=== PATIENT | female | born 1950 | race Asian ===

== ENCOUNTER 2018-01-30 20:44 | Emergency (ER) | payer MEDICARE, OTHER, SELFPAY ==
[2017-10-28 12:18] VITALS: BMI 29.2
[2018-01-30 20:50] VITALS: BP 116/58; PULSE 65; RESP 16; TEMP 36.7; O2SAT 95; BMI 34.7
--- NOTE | 2018-01-30 21:03 | DI.RAD.S_ITS ---
PROCEDURE: XR CHEST 1V INDICATIONS: Shortness of breath TECHNIQUE: One view of the chest was acquired. COMPARISON: [facility], , XR CHEST 1V, 10/28/2017, 5:08. [facility], CR, CHEST 1 VIEW, 06/13/2017, 18:59. [facility], CR, CHEST 1 VIEW, 08/08/2014, 18:36. FINDINGS: Surgical changes and devices: Stable over time. Prior cardiac valve surgery and what appears to be. Lungs and pleura: No pleural effusions or pneumothorax. Lungs are stable over time, with an interstitial prominence but no definite CHF. Mediastinum: Mediastinal contours appear normal. Heart size is normal. Bones and chest wall: No suspicious bony lesions. Overlying soft tissues appear unremarkable. IMPRESSION: Prior cardiac surgeries, chronic interstitial prominence within the lung parenchyma but no acute CHF is found. Dictated by: Victoriano Carreno M.D. on 01/31/2018 at 8:44 Approved by: Victoriano Carreno M.D. on 01/31/2018 at 8:45
--- NOTE | 2018-01-30 21:04 | ED_ITS ---
HPI - Chest Pain General Chief Complaint: Chest Pain Stated Complaint: RT ARM PAIN, NAUSEA, DIZZINESS Time Seen by Provider: 01/30/18 21:01 Source: patient Mode of arrival: ambulatory Limitations: no limitations History of Present Illness HPI narrative: 67-year-old female with a history of mitral valve replacement and history of atrial fibrillation on Coumadin also with a history of a heart attack by her report. Patient states that she was told she had a heart attack after she had an episode of atrial fibrillation with RVR. Patient states she just recently saw her legal secretary and her thoracic surgeon. She states that for the past 24-48 hours she has had occasional right arm ?burning?. She states she has had separate episodes where she feels a ?funny sensation? in her chest. She also states that she has separate episodes of what she describes as ?palpitations? and she also describes separate episodes especially this morning of a room spinning sensation. She does not feel that any of these are occurring at the same time. No shortness of breath. States that her symptoms are not worsening with palpation or movement or change in position. She states she is taking her medications. Related Data Home Medications Medication Instructions Recorded Confirmed amiodarone 200 mg PO QDAY #0 11/26/16 10/28/17 aspirin 81 mg PO QDAY #0 11/26/16 10/28/17 atorvastatin 40 mg PO HS #0 11/26/16 10/28/17 bupropion HCl [Wellbutrin XL] 150 mg PO QDAY #0 11/26/16 10/28/17 buspirone 15 mg PO BID #0 11/26/16 10/28/17 metoprolol succinate [Toprol XL] 12.5 mg PO BID #0 11/26/16 10/28/17 pantoprazole [Protonix] 40 mg PO BID #0 11/26/16 10/28/17 tramadol 50 mg PO QDAY PRN #0 11/26/16 10/28/17 warfarin [Coumadin] 2.5 mg PO QDAY #0 11/26/16 10/28/17 acetaminophen [Acetaminophen Extra 1,000 mg PO Q6H PRN 10/28/17 10/28/17 Strength] alprazolam 0.5 mg PO BID PRN 10/28/17 10/28/17 biotin 10,000 mcg PO DAILY 10/28/17 10/28/17 cyanocobalamin (vitamin B-12) 1,000 mcg PO DAILY 10/28/17 10/28/17 [Vitamin B-12] fluticasone 1 spray INTRANASAL BID 10/28/17 10/28/17 folic acid 400 mcg PO DAILY 10/28/17 10/28/17 furosemide [Lasix] 40 mg PO BID 10/28/17 10/28/17 losartan 12.5 mg PO DAILY 10/28/17 10/28/17 Previous Rx's Medication Instructions Recorded albuterol sulfate [Ventolin HFA] 2 puff INH RTQ4HR PRN #1 g 10/31/17 prednisone 10 mg PO DAILY #20 tab-cap 10/31/17 Allergies Allergy/AdvReac Type Severity Reaction Status Date / Time shellfish derived Allergy Mild HIVES Verified 10/28/17 06:55 [SHELLFISH DERIVED] azithromycin [AZITHROMYCIN] Allergy Unknown SWOLLEN Verified 10/28/17 06:54 LIPS diltiazem [From CARDIZEM] Allergy Unknown HEART BLOCK Verified 10/28/17 06:55 trazodone [TRAZODONE] Allergy Unknown STOP Verified 10/28/17 06:54 BREATHING doxycycline [DOXYCYCLINE] AdvReac Mild STOMACH Verified 10/28/17 09:05 UPSET Review of Systems Constitutional Denies fatigue, Denies fever(s) and Denies frequent falls ENT Ears, Nose, Mouth, and Throat: Reports vertigo, Reports dizziness, Denies throat swelling and Denies tongue swelling Cardiovascular Denies chest pain, Denies chest pain with activity, Denies diaphoresis, Denies syncope, Denies pedal edema, Denies leg edema, Reports palpitations and Denies dyspnea Respiratory Denies cough and Denies dyspnea Gastrointestinal Gastrointestinal: Denies diarrhea, Denies nausea and Denies vomiting Genitourinary Denies dysuria Musculoskeletal Denies myalgias, Denies arthralgias and Denies tingling Comments: Right arm burning sensation Integumentary/Breasts Denies rash and Denies skin pain Neurologic Reports burning sensations (Right arm), Denies confusion, Reports vertigo, Reports dizziness, Denies syncope, Denies frequent falls and Denies tingling Psychiatric Denies confusion Endocrine Denies fatigue and Reports palpitations Hematologic/Lymphatic Reports easy bleeding (On Coumadin) and Denies easy bruising Allergic/Immunologic Denies urticaria, Denies throat swelling and Denies tongue swelling [facility] Medical History SUPERFICIAL LACERATION OF TONGUE (Chronic) Hemolytic anemia (Chronic) Chronic renal failure (Chronic) Depression (Acute) Hyperlipemia (Acute) Migraine (Acute) Afib (Chronic) Anemia aplastic aregenerative (Chronic) CAD (coronary atherosclerotic disease) (Chronic) Endocarditis (Resolved) Surgical History 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 Rheumatic heart disease. 2. CAD. 3. Hypertension. 4. Depression. 5. Panic disorder. 6. Hiatal hernia. 7. Migraines. 8. Carotid stenosis. 9. Osteopenia. 10. Osteoarthritis. 11. Hyperlipidemia. 12. PAF. 13. Hemolytic anemia 14. Chronic kidney disease. Past Surgical History 1. Aortic and mitral valve replacement. 2. CABG x1. 3. Tubal ligation. 4. Hemorrhagic 2. 5. Transfemoral cath with mitral valve implantation. October 2016. 6. Transvenous pacemaker placement. October 2016. 7. Right femoral vein closure October 2016. Exam Initial Vital Signs Initial Vital Signs: Vital Signs Temperature 98.0 F 01/30/18 20:50 Pulse Rate 65 01/30/18 20:50 Respiratory Rate 16 01/30/18 20:50 Blood Pressure 116/58 L 01/30/18 20:50 Pulse Oximetry 95 01/30/18 20:50 Const General: cooperative, healthy appearing, comfortable, well developed, well groomed and No acute distress Orientation: alert and oriented x3 HENMT Head: normal to inspection and normocephalic Chest Chest: normal inspection of the chest Resp Effort & Inspection: normal respiratory effort Auscultation: clear to auscultation bilaterally Cardio Rate: regular rate Rhythm: regular rhythm Heart Sounds: murmur systolic II/ Pulses: radial pulses present GI Inspection: non-distended Palpation: soft, No firm and No tender Skin Lesions: no lesions Rashes: no rashes Neuro General: alert, awake and oriented x3 Speech: speech normal Gait: normal gait Extrem General: normal to inspection, full ROM and capillary refill normal Psych Appearance: grossly normal, well kempt and not disheveled Course Orders Ordered: ED Orders 01/30/18 21:03 XR chest 1V Stat EKG-12 Lead Stat 01/30/18 21:10 B Type Natriuretic Peptide Stat Complete Blood Count AUTO DIFF Stat Comprehensive Metabolic Panel Stat Partial Thromboplastin Time Stat Prothrombin Time INR Stat Troponin I Stat 01/30/18 22:11 EKG-12 Lead Stat 01/30/18 23:57 Troponin I Stat Discontinued Medications Aspirin (Aspirin Chew) 324 mg PO NOW ONE Stop: 01/30/18 21:03 Last Admin: 01/30/18 21:13 Dose: 324 mg Vital Signs - 8 hr 01/30/18 20:50 01/30/18 21:18 01/30/18 21:35 Temperature 98.0 F Pulse Rate 65 63 59 L Respiratory Rate 16 15 15 Blood Pressure 116/58 L Blood Pressure [Right Arm] 121/65 H 120/58 L Pulse Oximetry 95 92 90 L 01/30/18 22:06 01/30/18 22:41 01/30/18 23:08 Temperature Pulse Rate 58 L 61 60 Respiratory Rate 17 15 13 Blood Pressure Blood Pressure [Right Arm] 117/69 135/81 H 123/74 H Pulse Oximetry 92 91 93 01/31/18 01:01 01/31/18 01:14 Temperature Pulse Rate 61 59 L Respiratory Rate 18 16 Blood Pressure 126/99 H Blood Pressure [Right Arm] 126/69 H Pulse Oximetry 92 100 MDM - Chest Pain Medical Records Data Attestation: I reviewed the patient's medical records. Lab Data Attestation: I reviewed the patient's lab results. Result diagrams: 01/30/18 21:10 01/30/18 21:10 Lab Results 01/30/18 01/30/18 01/30/18 Range/Units 21:10 21:10 21:10 WBC 5.0 (4.5-11.0) X10^3/uL RBC 4.49 (4.0-5.2) X10^6/uL Hgb 12.6 (12.0-16.0) g/dL Hct 38.8 (36-46) % MCV 86.5 (80-100) fL MCH 28.1 (26-34) PG MCHC 32.5 (30-36) % RDW 14.4 (11.6-14.8) % Plt Count 230 (150-400) X10^3/uL Neut % (Auto) 48.7 L (50-75) % Lymph % (Auto) 34.1 (25-40) % [place] % (Auto) 12.4 (3-14) % Eos % (Auto) 3.9 (2-4) % Baso % (Auto) 0.9 (0-2) % Neut # (Auto) 2400 L (3737-2198) /uL PT 23.9 H (10.1-12.7) SECONDS INR 2.2 H (0.9-1.3) APTT 43 H D (26.4-36.2) SECONDS Sodium 144 (137-145) mmol/L Potassium 3.3 L (3.4-5.1) mmol/L Chloride 99 (98-107) mmol/L Carbon Dioxide 31 (22-32) mmol/L BUN 31 H (7-17) mg/dL Creatinine 2.60 H (0.52-1.04) mg/dL Estimated GFR 18.4 L (>60) mL/min BUN/Creatinine Ratio 11.9 (6-22) Glucose 137 H (80-110) mg/dL Calcium 9.2 (8.4-10.2) mg/dL Total Bilirubin 0.4 (0.2-1.3) mg/dL AST 35 (14-36) IU/L ALT 32 (9-52) IU/L Alkaline Phosphatase 99 (38-126) U/L Troponin I (0.01-0.034) ng/mL B-Natriuretic Peptide 456.0 H (<100) Total Protein 8.1 (6.3-8.2) g/dL Albumin 4.7 (3.5-5.0) g/dL Globulin 3.4 (1.7-4.1) g/dL Albumin/Globulin Ratio 1.4 (1.0-2.8) 01/30/18 01/31/18 Range/Units 21:10 00:05 WBC (4.5-11.0) X10^3/uL RBC (4.0-5.2) X10^6/uL Hgb (12.0-16.0) g/dL Hct (36-46) % MCV (80-100) fL MCH (26-34) PG MCHC (30-36) % RDW (11.6-14.8) % Plt Count (150-400) X10^3/uL Neut % (Auto) (50-75) % Lymph % (Auto) (25-40) % [place] % (Auto) (3-14) % Eos % (Auto) (2-4) % Baso % (Auto) (0-2) % Neut # (Auto) (5728-6311) /uL PT (10.1-12.7) SECONDS INR (0.9-1.3) APTT (26.4-36.2) SECONDS Sodium (137-145) mmol/L Potassium (3.4-5.1) mmol/L Chloride (98-107) mmol/L Carbon Dioxide (22-32) mmol/L BUN (7-17) mg/dL Creatinine (0.52-1.04) mg/dL Estimated GFR (>60) mL/min BUN/Creatinine Ratio (6-22) Glucose (80-110) mg/dL Calcium (8.4-10.2) mg/dL Total Bilirubin (0.2-1.3) mg/dL AST (14-36) IU/L ALT (9-52) IU/L Alkaline Phosphatase (38-126) U/L Troponin I < 0.012 < 0.012 (0.01-0.034) ng/mL B-Natriuretic Peptide (<100) Total Protein (6.3-8.2) g/dL Albumin (3.5-5.0) g/dL Globulin (1.7-4.1) g/dL Albumin/Globulin Ratio (1.0-2.8) Imaging Data Chest x-ray: Attestation: I personally reviewed and interpreted this imaging study as follows: My impression: No pneumonia Postsurgical changes to include sternal wires and cages from her valve replacement No focal consolidation ECG Data Attestation: I personally reviewed and interpreted this ECG as follows: Prior ECG tracings: not available for review Interpretation: EKG dated 30 January 2018 time 2102 hr Sinus rhythm Ventricular rate is 63 As needed oval 174 Normal QRS Normal QTC Inverted T-waves in lead 1 and aVL Inverted T-waves in V1 V2 V3 EKG dated 30 January 2018 time 2211 hr Sinus bradycardia Ventricular rate of 56 Normal as needed oval Normal QRS Normal QTC Unchanged from prior EKG MDM Narrative Medical decision making narrative: Patient was given an aspirin here in the emergency department. Serial EKG is unchanged. Patient with negative troponin x2 here in the emergency department. Patient with very atypical symptoms. She clearly describes an episode of vertigo that she had earlier today that did not seem to be associated with any of her other symptoms. She also describes palpitations which she states that are not new for her. She is on Coumadin and is therapeutic with her INR. She states that her prior heart attack was after an episode of atrial fibrillation with RVR. She is not in atrial fibrillation today. I feel that given her history, the unchanged EKG is, the 2-troponins and her very atypical symptoms that ACS is unlikely. She was given return precautions regarding this however. She was instructed she needs to contact her primary care doctor tomorrow and also her legal secretary. I had long discussion regarding her symptoms and her risk for ACS. She did expressed understanding and agreement with being discharged home. Discharge Plan Departure Patient Disposition: Home, Self-Care Clinical Impression: Atypical chest pain, Vertigo Discharge Date/Time: 01/31/18 01:17 Interventions: ED Discharge Assessment Last Done: 01/31/18 01:14 Instructions: DI for Vertigo, DI for Atypical Chest Pain Activity Restrictions/Additional Instructions: Recommend you continue all of your medications like we discussed. Contact your primary care doctor and your legal secretary tomorrow for a follow-up. Return to the emergency department for any new or worsening symptoms Prescriptions: No Action pantoprazole [Protonix] 40 MG tablet,delayed release (DR/EC) 40 mg PO BID Qty: 0 RF: 0 metoprolol succinate [Toprol XL] 25 MG tablet extended release 24 hr 12.5 mg PO BID Qty: 0 RF: 0 amiodarone 200 MG tablet 200 mg PO QDAY Qty: 0 RF: 0 tramadol 50 MG tablet 50 mg PO QDAY PRN (Reason: Pain (Scale Score 7-10)) Qty: 0 RF: 0 atorvastatin 40 MG tablet 40 mg PO HS Qty: 0 RF: 0 aspirin 81 MG tablet,delayed release (DR/EC) 81 mg PO QDAY Qty: 0 RF: 0 bupropion HCl [Wellbutrin XL] 150 MG tablet extended release 24 hr 150 mg PO QDAY Qty: 0 RF: 0 warfarin [Coumadin] 5 MG tablet 2.5 mg PO QDAY Qty: 0 RF: 0 buspirone 15 MG tablet 15 mg PO BID Qty: 0 RF: 0 cyanocobalamin (vitamin B-12) [Vitamin B-12] 1,000 mcg Tablet 1,000 mcg PO DAILY RF: 0 folic acid 400 mcg Tablet 400 mcg PO DAILY RF: 0 acetaminophen [Acetaminophen Extra Strength] 500 mg Tablet 1,000 mg PO Q6H PRN (Reason: Pain (Scale Score 1-3)) RF: 0 alprazolam 0.5 mg Tablet 0.5 mg PO BID PRN (Reason: Anxiety) RF: 0 losartan 25 mg Tablet 12.5 mg PO DAILY RF: 0 furosemide [Lasix] 20 mg Tablet 40 mg PO BID RF: 0 fluticasone 50 mcg/actuation [place],Suspension 1 spray INTRANASAL BID RF: 0 biotin 10,000 mcg Tablet,Disintegrating 10,000 mcg PO DAILY RF: 0 albuterol sulfate [Ventolin HFA] 90 mcg/actuation Hfa Aerosol Inhaler 2 puff INH RTQ4HR PRN (Reason: Shortness Of Breath) Qty: 1 RF: 0 prednisone 10 mg tablet 10 mg PO DAILY Qty: 20 RF: 0
[2018-01-30] MEDS: ASPIRIN 81 MG TAB 324 MG PO (21:13)
[2018-01-30 21:17] LABS: Add Manual Diff / Slide Review NO; Basophils Percent Auto 0.9 % (0-2); Eosinophils Percent Auto 3.9 % (2-4); Hematocrit 38.8 % (36-46); Hemoglobin 12.6 g/dL (12.0-16.0); Lymphocytes Percent Auto 34.1 % (25-40); Mean Corpuscular HGB Conc 32.5 % (30-36); Mean Corpuscular Hemoglobin 28.1 PG (26-34); Mean Corpuscular Volume 86.5 fL (80-100); Monocytes Percent Auto 12.4 % (3-14); Neutrophils Absolute Auto 2400 /uL (3000-5900); Neutrophils Percent Auto 48.7 % (50-75); Platelet Count 230 X10^3/uL (150-400); Red Blood Cell Count 4.49 X10^6/uL (4.0-5.2); Red Cell Distribution Width 14.4 % (11.6-14.8)
[2018-01-30 21:18] VITALS: BP 121/65; PULSE 63; RESP 15; O2SAT 92
[2018-01-30 21:27] LABS: INR 2.2 (0.9-1.3); Prothrombin Time 23.9 SECONDS (10.1-12.7)
[2018-01-30 21:29] LABS: PTT Partial Thromboplastin Tim 43 SECONDS (26.4-36.2)
[2018-01-30 21:30] LABS: Alanine Aminotransferase 32 IU/L (9-52); Albumin 4.7 g/dL (3.5-5.0); Albumin Globulin Ratio 1.4 (1.0-2.8); Alkaline Phosphatase 99 U/L (38-126); Aspartate Aminotransferase 35 IU/L (14-36); BUN Creatinine Ratio 11.9 (6-22); Bilirubin Total 0.4 mg/dL (0.2-1.3); Blood Urea Nitrogen 31 mg/dL (7-17); Calcium 9.2 mg/dL (8.4-10.2); Carbon Dioxide 31 mmol/L (22-32); Chloride 99 mmol/L (98-107); Estimated Glomerular Filt Rate 18.4 mL/min (>60); Globulin 3.4 g/dL (1.7-4.1); Glucose 137 mg/dL (80-110); HEMOLYSIS < 15 (0-50); Potassium 3.3 mmol/L (3.4-5.1); Sodium 144 mmol/L (137-145); Total Protein 8.1 g/dL (6.3-8.2)
[2018-01-30 21:35] VITALS: BP 120/58; PULSE 59; RESP 15; O2SAT 90
[2018-01-30 22:06] VITALS: BP 117/69; PULSE 58; RESP 17; O2SAT 92
[2018-01-30 22:11] LABS: Troponin I < 0.012 ng/mL (0.01-0.034)
[2018-01-30 22:41] VITALS: BP 135/81; PULSE 61; RESP 15; O2SAT 91
[2018-01-30 23:08] VITALS: BP 123/74; PULSE 60; RESP 13; O2SAT 93
[2018-01-31 00:38] LABS: Troponin I < 0.012 ng/mL (0.01-0.034)
[2018-01-31 01:01] VITALS: BP 126/69; PULSE 61; RESP 18; O2SAT 92
[2018-01-31 01:14] VITALS: BP 126/99; PULSE 59; RESP 16; O2SAT 100
== END 2018-01-31 01:17 | disposition home or self-care (01) ==
PROVIDERS: Emergency Provider Emergency Medicine; Family Provider Family Medicine; PCP Family Medicine
DX: R07.89 Other chest pain (principal); R42 Dizziness and giddiness
CPT/HCPCS: 36415; 36591; 71045; 80053; 83880; 84484; 85025; 85610; 85730; 93005; 93010; 99283; 99285

== ENCOUNTER 2018-07-24 15:12 | Emergency (ER) | payer MEDICARE, OTHER, SELFPAY ==
[2017-10-28 12:18] VITALS: BMI 29.2
--- NOTE | 2018-07-24 | DI.US.S_ITS ---
PROCEDURE: US PERIPH VENOUS LOW EXTREM RT INDICATIONS: RIGHT LEG EDEMA, PAIN TECHNIQUE: Real-time imaging, as well as color and pulse Doppler interrogation, were performed of the lower extremity deep veins from the inguinal ligament to the popliteal fossa. COMPARISON: None. FINDINGS: The deep veins are normally compressible, and free of intraluminal thrombus. Color and pulse Doppler demonstrate normal phasic intraluminal flow. There is normal augmentation response to distal compression maneuver. IMPRESSION: 1. No evidence of deep venous thrombosis in the right lower extremity. Dictated by: Agustin Lemon M.D. on 07/24/2018 at 21:02 Approved by: Agustin Lemon M.D. on 07/24/2018 at 21:02
[2018-07-24 15:19] VITALS: BP 105/71; PULSE 75; RESP 16; TEMP 37.8; O2SAT 95; BMI 35.3
[2018-07-24 19:20] VITALS: BP 140/80; PULSE 73; RESP 16; TEMP 36.8; O2SAT 95
--- NOTE | 2018-07-24 19:35 | DI.RAD.S_ITS ---
PROCEDURE: XR FOOT RT 2V INDICATIONS: Right foot pain and swelling TECHNIQUE: 3 views of the foot were acquired. COMPARISON: None. FINDINGS: Bones: No fractures or dislocations. Mild periosteal thickening demonstrated along the 4th metatarsal shaft. There is a moderate hallux valgus. Mild degeneration demonstrated at the 1st metatarsophalangeal joint. No suspicious bony lesions. Soft tissues: Mild soft tissue swelling noted medial to the 1st metatarsal head. A No tibiotalar joint effusion. Achilles tendon appears intact. IMPRESSION: 1. No fracture or dislocation. 2. Mild periosteal thickening demonstrated laterally along the 4th metatarsal shaft may represent a stress reaction. No stress fracture identified. Recommend correlation with clinical history. 3. Moderate hallux valgus. Dictated by: Agustin Lemon M.D. on 07/24/2018 at 19:56 Approved by: Agustin Lemon M.D. on 07/24/2018 at 19:58
[2018-07-24 20:00] VITALS: BP 121/65; PULSE 66; RESP 16; O2SAT 96
--- NOTE | 2018-07-24 20:02 | PC.NURSE ---
patients son called for an update. patient okay with son to be updated.
--- NOTE | 2018-07-24 20:33 | ED.TRAUMA ---
HPI - Trauma <Sybil Orozco DIRECTOR OF VITAL STATISTICS-BC - Last Filed: 07/24/18 22:23> General Chief Complaint: Extremity Injury, Upper Stated Complaint: RIGHT FOOT AND LEG PAIN Time Seen by Provider: 07/24/18 19:27 Source: patient Mode of arrival: ambulatory History of Present Illness HPI narrative: The patient is a 68-year-old female active smoker with a history of hypertension and coronary artery disease who presents with a chief complaint of left foot pain and swelling. This started yesterday. She does not know of any trauma to the area. She has taken Tylenol medical marijuana for the pain. She complains of persistent pain. She is worried about a blood clot as the swelling is unilateral. Patient denies any fevers nausea vomiting diarrhea abdominal pain. She denies any chest pain shortness of breath. She denies any dizziness or lightheadedness. Related Data Home Medications Medication Instructions Recorded Confirmed amiodarone 200 mg PO QDAY #0 11/26/16 10/28/17 aspirin 81 mg PO QDAY #0 11/26/16 10/28/17 atorvastatin 40 mg PO HS #0 11/26/16 10/28/17 bupropion HCl [Wellbutrin XL] 150 mg PO DAILY #0 11/26/16 07/24/18 buspirone 15 mg PO BID #0 11/26/16 07/24/18 pantoprazole [Protonix] 40 mg PO BID #0 11/26/16 07/24/18 warfarin [Coumadin] 2.5 mg PO QDAY #0 11/26/16 07/24/18 acetaminophen [Acetaminophen Extra 1,000 mg PO Q6H PRN 10/28/17 10/28/17 Strength] alprazolam 0.5 mg PO BID PRN 10/28/17 10/28/17 biotin 10,000 mcg PO DAILY 10/28/17 10/28/17 cyanocobalamin (vitamin B-12) 1,000 mcg PO DAILY 10/28/17 10/28/17 [Vitamin B-12] fluticasone 1 spray INTRANASAL BID 10/28/17 10/28/17 folic acid 400 mcg PO DAILY 10/28/17 10/28/17 furosemide [Lasix] 60 mg PO BID 10/28/17 10/28/17 losartan 12.5 mg PO DAILY 10/28/17 07/24/18 fluoxetine 40 mg PO DAILY 07/24/18 07/24/18 metoprolol succinate 25 mg PO BID 07/24/18 07/24/18 mirtazapine 07/24/18 Previous Rx's Medication Instructions Recorded albuterol sulfate [Ventolin HFA] 2 puff INH RTQ4HR PRN #1 g 10/31/17 oxycodone 5 mg PO Q4-6H PRN #7 tab 07/24/18 Allergies Allergy/AdvReac Type Severity Reaction Status Date / Time shellfish derived Allergy Mild HIVES Verified 07/24/18 15:19 [SHELLFISH DERIVED] azithromycin [AZITHROMYCIN] Allergy Unknown SWOLLEN Verified 07/24/18 15:19 LIPS diltiazem [From CARDIZEM] Allergy Unknown HEART BLOCK Verified 07/24/18 15:19 trazodone [TRAZODONE] Allergy Unknown STOP Verified 07/24/18 15:19 BREATHING doxycycline [DOXYCYCLINE] AdvReac Mild STOMACH Verified 07/24/18 15:19 UPSET Review of Systems <MERA Perea - Last Filed: 07/24/18 22:23> Review of Systems GENERAL: Denies chills, fatigue, malaise, fever, sweats. HEENT: Denies sinus pain, ear pain, sore throat, difficulty swallowing, dizziness. RESPIRATORY: Denies dyspnea, cough, wheezing, hemoptysis, sputum. CARDIOVASCULAR: Denies chest pain, palpitations, orthopnea, edema, GASTROINTESTINAL: Denies nausea, vomiting, abdominal pain, diarrhea, constipation, melena. : Denies dysuria, frequency, incontinence, hematuria, urinary retention. MUSCULOSKELETAL: See HPI SKIN: Denies rash, skin lesions, or other NEUROLOGIC: Denies weakness, headache, numbness, change in speech, confusion, seizures, incoordination. PSYCHIATRIC: No concerning psychosocial issues. 12 point review of systems is negative except for those stated above Exam <MERA Perea - Last Filed: 07/24/18 22:23> Narrative Exam Narrative: GENERAL: This is a well-nourished, well-developed patient, in mild distress. HEAD: Atraumatic. Normocephalic. No temporal or scalp tenderness. EYES: Pupils equal round and reactive. Extraocular motions intact. No scleral icterus. No injection or drainage. ENT: Nose without bleeding, purulent drainage or septal hematoma. Throat without erythema, tonsillar hypertrophy or exudate. Uvula midline. Airway patent. NECK: Trachea midline. No JVD or lymphadenopathy. Supple, nontender, no meningeal signs. CARDIOVASCULAR: Regular rate and rhythm RESPIRATORY: No increased respiratory effort. No cough. EXTREMITIES: Generalized pain to palpation left foot. Pain to palpation over 4th and 5th metatarsals. Swelling noted over navicular bone. Positive pedal pulses. Capillary refill less than 2 sec all toes left foot. No swelling noted right foot. BACK: Nontender without deformity or crepitance. No flank tenderness. NEURO: AOx3. SKIN: No erythema ecchymosis laceration abrasion or abnormality noted skin of left foot. Initial Vital Signs Initial Vital Signs: Vital Signs Temperature 100.0 F H 07/24/18 15:19 Pulse Rate 75 07/24/18 15:19 Respiratory Rate 16 07/24/18 15:19 Blood Pressure 105/71 07/24/18 15:19 Pulse Oximetry 95 07/24/18 15:19 <J Carlos Enriquez DO - Last Filed: 07/25/18 04:00> Initial Vital Signs Initial Vital Signs: Vital Signs Temperature 100.0 F H 07/24/18 15:19 Pulse Rate 75 07/24/18 15:19 Respiratory Rate 16 07/24/18 15:19 Blood Pressure 105/71 07/24/18 15:19 Pulse Oximetry 95 07/24/18 15:19 Course <MERA Perea - Last Filed: 07/24/18 22:23> Orders Ordered: ED Orders 07/24/18 19:35 XR foot RT min 3V Stat Discontinued Medications Acetaminophen (Tylenol) 975 mg PO NOW ONE Stop: 07/24/18 20:33 Last Admin: 07/24/18 20:42 Dose: 975 mg Oxycodone HCl (Percolone) 5 mg PO NOW ONE Stop: 07/24/18 21:27 Last Admin: 07/24/18 22:15 Dose: 5 mg Vital Signs - 8 hr 07/24/18 21:00 07/24/18 22:27 Pulse Rate 68 70 Respiratory Rate 16 Blood Pressure [Left Arm] 102/60 109/62 Pulse Oximetry 95 93 <J Carlos Enriquez DO - Last Filed: 07/25/18 04:00> Orders Ordered: ED Orders 07/24/18 19:35 XR foot RT min 3V Stat Discontinued Medications Acetaminophen (Tylenol) 975 mg PO NOW ONE Stop: 07/24/18 20:33 Last Admin: 07/24/18 20:42 Dose: 975 mg Oxycodone HCl (Percolone) 5 mg PO NOW ONE Stop: 07/24/18 21:27 Last Admin: 07/24/18 22:15 Dose: 5 mg Vital Signs - 8 hr 07/24/18 21:00 07/24/18 22:27 Pulse Rate 68 70 Respiratory Rate 16 Blood Pressure [Left Arm] 102/60 109/62 Pulse Oximetry 95 93 MDM - Trauma <MERA Perea - Last Filed: 07/24/18 22:23> Imaging Data foot xray: Radiologist's impression: [place] [address] XRay Report Signed Patient: Joselyn Prado TMR#: [id number] : [id number] Age/Sex: 68 / FDate of Service: 07/24/18 Loc: ED Accession Number: [id number] Procedure: XR foot RT min 3V Ordering Provider: Sybil Orozco PROCEDURE: XR FOOT RT 2V INDICATIONS: Right foot pain and swelling TECHNIQUE: 3 views of the foot were acquired. COMPARISON: None. FINDINGS: Bones: No fractures or dislocations. Mild periosteal thickening demonstrated along the 4th metatarsal shaft. There is a moderate hallux valgus. Mild degeneration demonstrated at the 1st metatarsophalangeal joint. No suspicious bony lesions. Soft tissues: Mild soft tissue swelling noted medial to the 1st metatarsal head. A No tibiotalar joint effusion. Achilles tendon appears intact. IMPRESSION: 1. No fracture or dislocation. 2. Mild periosteal thickening demonstrated laterally along the 4th metatarsal shaft may represent a stress reaction. No stress fracture identified. Recommend correlation with clinical history. 3. Moderate hallux valgus. Dictated by: Agustin Lemon M.D. on 07/24/2018 at 19:56 Approved by: Agustin Lemon M.D. on 07/24/2018 at 19:58 Venous US: Radiologist's impression: [address] [address] Ultrasound Report Signed Patient: Joselyn Prado TMR#: [id number] : [id number]:[id number] Age/Sex: 68 / FDate of Service: 07/24/18 Loc: ED Accession Number: [id number] Procedure: US periph venous low extrem rt Ordering Provider: Sybil Orozco PROCEDURE: US PERIPH VENOUS LOW EXTREM RT INDICATIONS: RIGHT LEG EDEMA, PAIN TECHNIQUE: Real-time imaging, as well as color and pulse Doppler interrogation, were performed of the lower extremity deep veins from the inguinal ligament to the popliteal fossa. COMPARISON: None. FINDINGS: The deep veins are normally compressible, and free of intraluminal thrombus. Color and pulse Doppler demonstrate normal phasic intraluminal flow. There is normal augmentation response to distal compression maneuver. IMPRESSION: 1. No evidence of deep venous thrombosis in the right lower extremity. Dictated by: Agustin Lemon M.D. on 07/24/2018 at 21:02 Approved by: Agustin Lemon M.D. on 07/24/2018 at 21:02 [facility] Narrative Medical decision making narrative: Patient is a 68-year-old female presents with left foot pain and swelling. Given the unilateral swelling, an ultrasound was obtained to rule out DVT. X-ray shows no fracture, but a stress reaction noted along the 4th metatarsal. Thus I was willing or small pain medication prescription, but encouraged [id number] pain meds as needed and able as well as rest ice compression elevation. I encouraged her to follow up with her primary care provider. Encouraged her to come back to the emergency department for any chest pain, shortness of breath or acute concerns. Patient no questions or concerns upon discharge. Discharge Plan Departure Patient Disposition: Home Clinical Impression: Acute foot pain Discharge Date/Time: 07/24/18 22:29 Interventions: ED Discharge Assessment Last Done: 07/24/18 22:28 Instructions: How To Perform RICE (Rest, Ice, Compress, Elevate), DI for Foot Pain Activity Restrictions/Additional Instructions: Your x-ray shows no fracture, but possible stress reaction in your foot. Your ultrasound shows no blood clot. I am giving a small prescription of pain medication. Please use rest ice compression elevation. Please take [id number] pain medications as needed and able. Please follow-up with her primary care provider. Please come back to the emergency department for acute concerns including concern for stroke heart attack or blood clot. Prescriptions: New oxycodone 5 mg tablet 5 mg PO Q4-6H PRN (Reason: pain) Qty: 7 RF: 0 No Action pantoprazole [Protonix] 40 MG tablet,delayed release (DR/EC) 40 mg PO BID Qty: 0 RF: 0 amiodarone 200 MG tablet 200 mg PO QDAY Qty: 0 RF: 0 atorvastatin 40 MG tablet 40 mg PO HS Qty: 0 RF: 0 aspirin 81 MG tablet,delayed release (DR/EC) 81 mg PO QDAY Qty: 0 RF: 0 bupropion HCl [Wellbutrin XL] 150 MG tablet extended release 24 hr 150 mg PO DAILY Qty: 0 RF: 0 warfarin [Coumadin] 5 MG tablet 2.5 mg PO QDAY Qty: 0 RF: 0 buspirone 15 MG tablet 15 mg PO BID Qty: 0 RF: 0 cyanocobalamin (vitamin B-12) [Vitamin B-12] 1,000 mcg Tablet 1,000 mcg PO DAILY RF: 0 folic acid 400 mcg Tablet 400 mcg PO DAILY RF: 0 acetaminophen [Acetaminophen Extra Strength] 500 mg Tablet 1,000 mg PO Q6H PRN (Reason: Pain (Scale Score 1-3)) RF: 0 alprazolam 0.5 mg Tablet 0.5 mg PO BID PRN (Reason: Anxiety) RF: 0 losartan 25 mg Tablet 12.5 mg PO DAILY RF: 0 furosemide [Lasix] 20 mg Tablet 60 mg PO BID RF: 0 fluticasone 50 mcg/actuation [place],Suspension 1 spray INTRANASAL BID RF: 0 biotin 10,000 mcg Tablet,Disintegrating 10,000 mcg PO DAILY RF: 0 albuterol sulfate [Ventolin HFA] 90 mcg/actuation Hfa Aerosol Inhaler 2 puff INH RTQ4HR PRN (Reason: Shortness Of Breath) Qty: 1 RF: 0 fluoxetine 40 mg capsule 40 mg PO DAILY RF: 0 mirtazapine 15 mg tablet RF: 0 metoprolol succinate 25 mg tablet extended release 24 hr 25 mg PO BID RF: 0 Referrals: Mitchel Quiroz DO [Primary Care Provider] - <J Carlos Jellico, DO - Last Filed: 07/25/18 04:00> Cosign ED Attending Kmature Attestation: I was immediately available in the department for consultation. Documentation has been reviewed. I agree with assessment and plan.
[2018-07-24] MEDS: ACETAMINOPHEN 325 MG TABLET 975 MG PO (20:42)
[2018-07-24 21:00] VITALS: BP 102/60; PULSE 68; O2SAT 95
[2018-07-24] MEDS: OXYCODONE IR 5 MG TABLET PO (22:15)
[2018-07-24 22:27] VITALS: BP 109/62; PULSE 70; RESP 16; O2SAT 93
== END 2018-07-24 22:29 | disposition home or self-care (01) ==
PROVIDERS: Emergency Provider Nurse Practitioner Family; Family Provider Family Medicine; PCP Family Medicine
DX: M79.672 Pain in left foot (principal)
CPT/HCPCS: 73630; 93971; 99283; 99284

== ENCOUNTER 2018-11-20 23:01 | Emergency (ER) | payer MEDICARE, OTHER, SELFPAY ==
[2017-10-28 12:18] VITALS: BMI 29.2
[2018-11-20 23:16] VITALS: BP 132/72; PULSE 70; RESP 20; TEMP 36.7; O2SAT 97; BMI 31.9
--- NOTE | 2018-11-20 23:19 | DI.RAD.S_ITS ---
PROCEDURE: XR CHEST 2V INDICATIONS: cough congestion TECHNIQUE: 2 views of the chest were acquired. COMPARISON: [facility], CR, XR CHEST 1V, 01/30/2018, 22:29. [facility], CR, XR CHEST 1V, 10/28/2017, 5:08. FINDINGS: Surgical changes and devices: Stable over time. Lungs and pleura: Lungs are clear except for a mild chronic interstitial prominence and pulmonary hyperexpansion consistent with prior smoking. No pleural effusions or pneumothorax. Mediastinum: Mediastinal contours are normal. Heart size is at the upper limits of normal. Bones and chest wall: No suspicious bony abnormalities. Soft tissues appear unremarkable. IMPRESSION: No pneumonia found, prior heart surgery procedures. Heart size at upper limits of normal, chronic mild interstitial prominence. Large lung lines. Note: These findings are concordant with the preliminary interpretation. Dictated by: Victoriano Carreno M.D. on 11/21/2018 at 8:07 Approved by: Victoriano Carreno M.D. on 11/21/2018 at 8:08
--- NOTE | 2018-11-21 00:08 | ED.URI ---
HPI - URI/Sore Throat General Chief Complaint: Upper Respiratory Symptoms Stated Complaint: cough/SOB Time Seen by Provider: 11/20/18 23:44 Source: patient Mode of arrival: ambulatory Limitations: no limitations History of Present Illness HPI Narrative: Patient is a 68-year-old female who presents with cough ongoing for a week and. She does have a history of CHF, coronary artery disease, atrial fibrillation and valvular disease. She denies any fever chills or productive cough. She says she feels like she is wheezing. She says she has a scratchy throat she has had congestion. Possible fever although she is afebrile here. She has no chest pain or heart palpitations. She denies any orthopnea. She says she has been is had albuterol in the past but ran out of her inhaler. She denies any history of COPD or emphysema. MD Complaint: cough Duration: constant Relieving factors: nothing Exacerbating factors: nothing Related Data Home Medications Medication Instructions Recorded Confirmed amiodarone 200 mg PO QDAY #0 11/26/16 10/28/17 aspirin 81 mg PO QDAY #0 11/26/16 10/28/17 atorvastatin 40 mg PO HS #0 11/26/16 10/28/17 bupropion HCl [Wellbutrin XL] 150 mg PO DAILY #0 11/26/16 07/24/18 buspirone 15 mg PO BID #0 11/26/16 07/24/18 pantoprazole [Protonix] 40 mg PO BID #0 11/26/16 07/24/18 warfarin [Coumadin] 2.5 mg PO QDAY #0 11/26/16 07/24/18 acetaminophen [Acetaminophen Extra 1,000 mg PO Q6H PRN 10/28/17 10/28/17 Strength] alprazolam 0.5 mg PO BID PRN 10/28/17 10/28/17 biotin 10,000 mcg PO DAILY 10/28/17 10/28/17 cyanocobalamin (vitamin B-12) 1,000 mcg PO DAILY 10/28/17 10/28/17 [Vitamin B-12] fluticasone propionate 1 spray INTRANASAL BID 10/28/17 10/28/17 folic acid 400 mcg PO DAILY 10/28/17 10/28/17 furosemide [Lasix] 60 mg PO BID 10/28/17 10/28/17 losartan 12.5 mg PO DAILY 10/28/17 07/24/18 fluoxetine 40 mg PO DAILY 07/24/18 07/24/18 metoprolol succinate 25 mg PO BID 07/24/18 07/24/18 mirtazapine 07/24/18 Previous Rx's Medication Instructions Recorded albuterol sulfate [Ventolin HFA] 2 puff INH RTQ4HR PRN #1 g 10/31/17 oxycodone 5 mg PO Q4-6H PRN #7 tab 07/24/18 Allergies Allergy/AdvReac Type Severity Reaction Status Date / Time shellfish derived Allergy Mild HIVES Verified 07/24/18 15:19 [SHELLFISH DERIVED] azithromycin [AZITHROMYCIN] Allergy Unknown SWOLLEN Verified 07/24/18 15:19 LIPS diltiazem [From CARDIZEM] Allergy Unknown HEART BLOCK Verified 07/24/18 15:19 trazodone [TRAZODONE] Allergy Unknown STOP Verified 07/24/18 15:19 BREATHING doxycycline [DOXYCYCLINE] AdvReac Mild STOMACH Verified 07/24/18 15:19 UPSET Review of Systems Review of Systems ROS Unobtainable: All systems reviewed & are unremarkable except as noted in HPI and below Constitutional Denies chills, Denies fever(s), Denies lethargy and Denies weakness Eyes Denies change in vision, Denies eye discharge, Denies irritation and Denies loss of vision ENT Ears, Nose, Mouth, and Throat: Denies change in voice, Denies neck pain and Denies sore throat Cardiovascular Denies chest pain, Denies irregular heart rhythm, Denies lightheadedness, Denies palpitations and Denies orthopnea Respiratory Reports as per HPI, Reports cough, Reports pain with cough and Reports wheezing Gastrointestinal Gastrointestinal: Denies abdominal pain, Denies change in bowel habits, Denies diarrhea, Denies nausea and Denies vomiting Genitourinary Denies hematuria, Denies flank pain, Denies urinary incontinence and Denies urinary urgency Musculoskeletal Denies back pain and Denies neck pain Integumentary/Breasts Denies pruritus, Denies erythema, Denies rash and Denies wounds Neurologic Denies loss of vision and Denies weakness Endocrine Denies palpitations Allergic/Immunologic Reports wheezing [facility] Medical History SUPERFICIAL LACERATION OF TONGUE (Chronic) Hemolytic anemia (Chronic) Chronic renal failure (Chronic) Depression (Acute) Hyperlipemia (Acute) Migraine (Acute) Afib (Chronic) Anemia aplastic aregenerative (Chronic) CAD (coronary atherosclerotic disease) (Chronic) Endocarditis (Resolved) Surgical History 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 Rheumatic heart disease. 2. CAD. 3. Hypertension. 4. Depression. 5. Panic disorder. 6. Hiatal hernia. 7. Migraines. 8. Carotid stenosis. 9. Osteopenia. 10. Osteoarthritis. 11. Hyperlipidemia. 12. PAF. 13. Hemolytic anemia 14. Chronic kidney disease. Past Surgical History 1. Aortic and mitral valve replacement. 2. CABG x1. 3. Tubal ligation. 4. Hemorrhagic 2. 5. Transfemoral cath with mitral valve implantation. October 2016. 6. Transvenous pacemaker placement. October 2016. 7. Right femoral vein closure October 2016. Social History household members: family and children Smoking Status: Current some day smoker alcohol intake: never additional social history: Past Medical History 1. Rheumatic heart disease. 2. CAD. 3. Hypertension. 4. Depression. 5. Panic disorder. 6. Hiatal hernia. 7. Migraines. 8. Carotid stenosis. 9. Osteopenia. 10. Osteoarthritis. 11. Hyperlipidemia. 12. PAF. 13. Hemolytic anemia 14. Chronic kidney disease. Past Surgical History 1. Aortic and mitral valve replacement. 2. CABG x1. 3. Tubal ligation. 4. Hemorrhagic 2. 5. Transfemoral cath with mitral valve implantation. October 2016. 6. Transvenous pacemaker placement. October 2016. 7. Right femoral vein closure October 2016. Exam Initial Vital Signs Initial Vital Signs: Vital Signs Temperature 98.1 F 11/20/18 23:16 Pulse Rate 70 11/20/18 23:16 Respiratory Rate 20 11/20/18 23:16 Blood Pressure 132/72 11/20/18 23:16 Pulse Oximetry 97 11/20/18 23:16 GENERAL: Well-appearing, well-nourished and in no acute distress. HEENT: Head atraumatic,EOMI, pupils reactive, CARDIOVASCULAR: Irregular murmur RESPIRATORY: Breath sounds equal bilaterally, no wheezes rales or rhonchi. ABDOMEN: Soft, nontender. Normoactive bowel sounds all 4 quadrants. No guarding or rebound. EXTREMITIES: Normal range of motion, no clubbing or edema. Neurovascularly intact NEUROLOGICAL: Alert and oriented x4.Normal gait and speech. Cranial nerves II through XII grossly intact. SKIN: Warm, dry, no laceration, no petechiae, no rashes or lesions. Course Orders Ordered: ED Orders 11/20/18 23:19 Chest [XR chest 2V] Stat 11/21/18 00:15 B Type Natriuretic Peptide Stat Complete Blood Count AUTO DIFF Stat Comprehensive Metabolic Panel Stat Partial Thromboplastin Time Stat Prothrombin Time INR Stat Troponin & CK Cardiac Panel Stat 11/21/18 00:16 Consult to Respiratory Therapy Evaluate & Treat EKG-12 Lead Stat Discontinued Medications Albuterol (Ventolin Hfa Prepack) 1 box MISC SEEINSTR ONE Stop: 11/21/18 01:56 Last Admin: 11/21/18 01:57 Dose: 1 box Albuterol/Ipratropium (Duoneb) 3 ml INH NOW ONE Stop: 11/21/18 01:39 Last Admin: 11/21/18 01:38 Dose: 3 ml Albuterol/Ipratropium (Duoneb) 3 ml INH NOW ONE Stop: 11/21/18 01:46 Last Admin: 11/21/18 01:45 Dose: 3 ml Vital Signs - 8 hr 11/20/18 23:16 11/21/18 01:25 11/21/18 01:39 Temperature 98.1 F Pulse Rate 70 63 Respiratory Rate 20 24 Blood Pressure 132/72 Blood Pressure [Left Arm] 113/74 Pulse Oximetry 97 100 97 11/21/18 01:46 Temperature Pulse Rate Respiratory Rate Blood Pressure Blood Pressure [Left Arm] Pulse Oximetry 98 MDM - URI/Sore Throat Lab Data Attestation: I reviewed the patient's lab results. Result diagrams: 11/21/18 00:15 11/21/18 00:15 Lab Results 11/21/18 11/21/18 11/21/18 Range/Units 00:15 00:15 00:15 WBC 5.5 (4.5-11.0) X10^3/uL RBC 4.25 (4.0-5.2) X10^6/uL Hgb 12.3 (12.0-16.0) g/dL Hct 37.9 (36-46) % MCV 89.3 (80-100) fL MCH 29.0 (26-34) PG MCHC 32.4 (30-36) % RDW 14.1 (11.6-14.8) % Plt Count 230 (150-400) X10^3/uL Neut % (Auto) 56.6 (50-75) % Lymph % (Auto) 21.0 L (25-40) % [place] % (Auto) 13.9 (3-14) % Eos % (Auto) 7.7 H (2-4) % Baso % (Auto) 0.8 (0-2) % Neut # (Auto) 3100 (5031-9224) /uL Lymph # (Auto) 1200 (1058-2625) /uL [place] # (Auto) 800 (0-900) /uL Eos # (Auto) 400 (0-450) /uL Baso # (Auto) 0 (0-100) /uL PT 25.0 H (10.1-12.7) SECONDS INR 2.1 H (0.9-1.3) APTT 47 H D (26.4-36.2) SECONDS Sodium (137-145) mmol/L Potassium (3.4-5.1) mmol/L Chloride (98-107) mmol/L Carbon Dioxide (22-32) mmol/L BUN (7-17) mg/dL Creatinine (0.52-1.04) mg/dL Estimated GFR (>60) mL/min BUN/Creatinine Ratio (6-22) Glucose (80-110) mg/dL Calcium (8.4-10.2) mg/dL Total Bilirubin (0.2-1.3) mg/dL AST (14-36) IU/L ALT (9-52) IU/L Alkaline Phosphatase (38-126) U/L Total Creatine Kinase 51 (30-135) U/L CK-MB (CK-2) TNP CK-MB (CK-2) Rel Index TNP Troponin I < 0.012 (0.01-0.034) ng/mL B-Natriuretic Peptide 294 H (<100) Total Protein (6.3-8.2) g/dL Albumin (3.5-5.0) g/dL Globulin (1.7-4.1) g/dL Albumin/Globulin Ratio (1.0-2.8) 11/21/18 Range/Units 00:15 WBC (4.5-11.0) X10^3/uL RBC (4.0-5.2) X10^6/uL Hgb (12.0-16.0) g/dL Hct (36-46) % MCV (80-100) fL MCH (26-34) PG MCHC (30-36) % RDW (11.6-14.8) % Plt Count (150-400) X10^3/uL Neut % (Auto) (50-75) % Lymph % (Auto) (25-40) % Stafford % (Auto) (3-14) % Eos % (Auto) (2-4) % Baso % (Auto) (0-2) % Neut # (Auto) (4294-0556) /uL Lymph # (Auto) (4471-7199) /uL Stafford # (Auto) (0-900) /uL Eos # (Auto) (0-450) /uL Baso # (Auto) (0-100) /uL PT (10.1-12.7) SECONDS INR (0.9-1.3) APTT (26.4-36.2) SECONDS Sodium 142 (137-145) mmol/L Potassium 3.6 (3.4-5.1) mmol/L Chloride 103 (98-107) mmol/L Carbon Dioxide 28 (22-32) mmol/L BUN 30 H (7-17) mg/dL Creatinine 2.20 H (0.52-1.04) mg/dL Estimated GFR 22.3 L (>60) mL/min BUN/Creatinine Ratio 13.6 (6-22) Glucose 106 (80-110) mg/dL Calcium 8.5 (8.4-10.2) mg/dL Total Bilirubin 0.4 (0.2-1.3) mg/dL AST 30 (14-36) IU/L ALT 23 (9-52) IU/L Alkaline Phosphatase 100 (38-126) U/L Total Creatine Kinase (30-135) U/L CK-MB (CK-2) CK-MB (CK-2) Rel Index Troponin I (0.01-0.034) ng/mL B-Natriuretic Peptide (<100) Total Protein 6.8 (6.3-8.2) g/dL Albumin 4.0 (3.5-5.0) g/dL Globulin 2.8 (1.7-4.1) g/dL Albumin/Globulin Ratio 1.4 (1.0-2.8) Imaging Data Chest x-ray: Attestation: I personally reviewed and interpreted this imaging study as follows: My impression: Chest x-ray compared to prior. Right middle lobe scarring no consolidation or focal pneumonia. ECG Data Attestation: I personally reviewed and interpreted this ECG as follows: Prior ECG tracings: available for review Interpretation: Sinus rhythm with PVCs rate [address] changes. T-wave inversions noted in precordial leads is similar to previous EKG. No ST elevations or depressions. MDM Narrative Medical decision making narrative: Patient is afebrile no leukocytosis BNP that much lower than what it was previously. No CHF appreciated. She actually is feeling much better after DuoNeb in the ED. She has given an inhaler. I see no indication antibiotics at this time. Likely upper respiratory viral syndrome. Discharge Plan Departure Patient Disposition: Home Clinical Impression: Bronchitis Upper respiratory infection Qualifiers: URI type: unspecified viral URI Qualified Code(s): J06.9 - Acute upper respiratory infection, unspecified Discharge Date/Time: 11/21/18 02:05 Interventions: ED Discharge Assessment Last Done: 11/21/18 02:05 Instructions: DI for Acute Bronchitis Activity Restrictions/Additional Instructions: *You have been diagnosed with upper respiratory infection *What to do: No need for antibiotics at this time. Likely viral infection. *Continue to take medications as directed Albuterol inhaler 1-2 puffs every 4 hours if needed for coughing or shortness of breath *Follow up with your primary care provider in 2-3 days *Return to ER if you should have increasing shortness of breath, fever, chest pain or any new, worsening or concerning symptoms Prescriptions: No Action pantoprazole [Protonix] 40 MG tablet,delayed release (DR/EC) 40 mg PO BID Qty: 0 RF: 0 amiodarone 200 MG tablet 200 mg PO QDAY Qty: 0 RF: 0 atorvastatin 40 MG tablet 40 mg PO HS Qty: 0 RF: 0 aspirin 81 MG tablet,delayed release (DR/EC) 81 mg PO QDAY Qty: 0 RF: 0 bupropion HCl [Wellbutrin XL] 150 MG tablet extended release 24 hr 150 mg PO DAILY Qty: 0 RF: 0 warfarin [Coumadin] 5 MG tablet 2.5 mg PO QDAY Qty: 0 RF: 0 buspirone 15 MG tablet 15 mg PO BID Qty: 0 RF: 0 cyanocobalamin (vitamin B-12) [Vitamin B-12] 1,000 mcg Tablet 1,000 mcg PO DAILY RF: 0 folic acid 400 mcg Tablet 400 mcg PO DAILY RF: 0 acetaminophen [Acetaminophen Extra Strength] 500 mg Tablet 1,000 mg PO Q6H PRN (Reason: Pain (Scale Score 1-3)) RF: 0 alprazolam 0.5 mg Tablet 0.5 mg PO BID PRN (Reason: Anxiety) RF: 0 losartan 25 mg Tablet 12.5 mg PO DAILY RF: 0 furosemide [Lasix] 20 mg Tablet 60 mg PO BID RF: 0 fluticasone propionate 50 mcg/actuation [place],Suspension 1 spray INTRANASAL BID RF: 0 biotin 10,000 mcg Tablet,Disintegrating 10,000 mcg PO DAILY RF: 0 albuterol sulfate [Ventolin HFA] 90 mcg/actuation Hfa Aerosol Inhaler 2 puff INH RTQ4HR PRN (Reason: Shortness Of Breath) Qty: 1 RF: 0 fluoxetine 40 mg capsule 40 mg PO DAILY RF: 0 mirtazapine 15 mg tablet RF: 0 metoprolol succinate 25 mg tablet extended release 24 hr 25 mg PO BID RF: 0 oxycodone 5 mg tablet 5 mg PO Q4-6H PRN (Reason: pain) Qty: 7 RF: 0 Referrals: Mitchel Quiroz DO [Primary Care Provider] -
[2018-11-21 00:30] LABS: Add Manual Diff / Slide Review NO; Basophils Absolute Auto 0 /uL (0-100); Basophils Percent Auto 0.8 % (0-2); Eosinophils Absolute Auto 400 /uL (0-450); Eosinophils Percent Auto 7.7 % (2-4); Hematocrit 37.9 % (36-46); Hemoglobin 12.3 g/dL (12.0-16.0); Lymphocytes Absolute Auto 1200 /uL (1100-4500); Mean Corpuscular HGB Conc 32.4 % (30-36); Mean Corpuscular Volume 89.3 fL (80-100); Monocytes Absolute Auto 800 /uL (0-900); Monocytes Percent Auto 13.9 % (3-14); Neutrophils Absolute Auto 3100 /uL (1500-7000); Neutrophils Percent Auto 56.6 % (50-75); Platelet Count 230 X10^3/uL (150-400); Red Blood Cell Count 4.25 X10^6/uL (4.0-5.2); Red Cell Distribution Width 14.1 % (11.6-14.8); White Blood Cell Count 5.5 X10^3/uL (4.5-11.0)
[2018-11-21 00:34] LABS: INR 2.1 (0.9-1.3)
[2018-11-21 00:36] LABS: PTT Partial Thromboplastin Tim 47 SECONDS (26.4-36.2)
[2018-11-21 00:37] LABS: Creatine Kinase 51 U/L (30-135)
[2018-11-21 00:50] LABS: Troponin I < 0.012 ng/mL (0.01-0.034)
[2018-11-21 00:51] LABS: B Type Natriuretic Peptide 294 (<100)
[2018-11-21 00:54] LABS: Alanine Aminotransferase 23 IU/L (9-52); Albumin Globulin Ratio 1.4 (1.0-2.8); Alkaline Phosphatase 100 U/L (38-126); Aspartate Aminotransferase 30 IU/L (14-36); BUN Creatinine Ratio 13.6 (6-22); Bilirubin Total 0.4 mg/dL (0.2-1.3); Blood Urea Nitrogen 30 mg/dL (7-17); Calcium 8.5 mg/dL (8.4-10.2); Carbon Dioxide 28 mmol/L (22-32); Chloride 103 mmol/L (98-107); Estimated Glomerular Filt Rate 22.3 mL/min (>60); Globulin 2.8 g/dL (1.7-4.1); Glucose 106 mg/dL (80-110); HEMOLYSIS 29 (0-50); Potassium 3.6 mmol/L (3.4-5.1); Sodium 142 mmol/L (137-145); Total Protein 6.8 g/dL (6.3-8.2)
[2018-11-21 01:25] VITALS: BP 113/74; PULSE 63; RESP 24; O2SAT 100
[2018-11-21] MEDS: ALBUTEROL/IPRATROPIUM 3 ML AMPUL INH ×2 (01:38→01:45)
[2018-11-21 01:39] VITALS: O2SAT 97
[2018-11-21 01:46] VITALS: O2SAT 98
[2018-11-21] MEDS: ALBUTEROL HFA PREPACK 1 BOX MISC (01:57)
== END 2018-11-21 02:05 | disposition home or self-care (01) ==
PROVIDERS: Emergency Provider Emergency Medicine; Family Provider Family Medicine; PCP Family Medicine
DX: J40 Bronchitis, not specified as acute or chronic (principal); J06.9 Acute upper respiratory infection, unspecified; R06.02 Shortness of breath; Z95.1 Presence of aortocoronary bypass graft; Z95.0 Presence of cardiac pacemaker; Z95.2 Presence of prosthetic heart valve
CPT/HCPCS: 36591; 71046; 80053; 82550; 83880; 84484; 85025; 85610; 85730; 93005; 94640; 99283; 99285

== ENCOUNTER 2018-12-16 14:13 | Emergency (ER) | payer MEDICARE, OTHER, SELFPAY ==
[2017-10-28 12:18] VITALS: BMI 29.2
[2018-12-16 14:24] VITALS: BP 111/78; PULSE 68; RESP 18; TEMP 36.5; O2SAT 96; BMI 31.4
[2018-12-16 16:12] LABS: Add Manual Diff / Slide Review NO; Basophils Absolute Auto 0 /uL (0-100); Basophils Percent Auto 0.6 % (0-2); Eosinophils Absolute Auto 100 /uL (0-450); Eosinophils Percent Auto 1.5 % (2-4); Hematocrit 37.5 % (36-46); Hemoglobin 12.3 g/dL (12.0-16.0); Lymphocytes Absolute Auto 1500 /uL (1100-4500); Mean Corpuscular HGB Conc 32.8 % (30-36); Mean Corpuscular Hemoglobin 28.9 PG (26-34); Mean Corpuscular Volume 87.9 fL (80-100); Monocytes Absolute Auto 800 /uL (0-900); Monocytes Percent Auto 9.6 % (3-14); Neutrophils Absolute Auto 5900 /uL (1500-7000); Neutrophils Percent Auto 70.3 % (50-75); Platelet Count 270 X10^3/uL (150-400); Red Blood Cell Count 4.27 X10^6/uL (4.0-5.2); White Blood Cell Count 8.4 X10^3/uL (4.5-11.0)
[2018-12-16] MEDS: CODEINE/ACETAMINOPHEN 30/300 TABLET 1 TAB PO (16:12)
[2018-12-16] MEDS: ONDANSETRON 4 MG ODT SL (16:12)
[2018-12-16 16:24] LABS: Alanine Aminotransferase 11 IU/L (9-52); Albumin 4.4 g/dL (3.5-5.0); Albumin Globulin Ratio 1.3 (1.0-2.8); Alkaline Phosphatase 109 U/L (38-126); Aspartate Aminotransferase 25 IU/L (14-36); BUN Creatinine Ratio 13.5 (6-22); Bilirubin Total 0.6 mg/dL (0.2-1.3); Blood Urea Nitrogen 27 mg/dL (7-17); Calcium 9.1 mg/dL (8.4-10.2); Carbon Dioxide 32 mmol/L (22-32); Chloride 103 mmol/L (98-107); Estimated Glomerular Filt Rate 24.9 mL/min (>60); Globulin 3.5 g/dL (1.7-4.1); Glucose 103 mg/dL (80-110); HEMOLYSIS 21 (0-50); Potassium 4.1 mmol/L (3.4-5.1); Sodium 143 mmol/L (137-145); Total Protein 7.9 g/dL (6.3-8.2)
[2018-12-16 16:57] VITALS: BP 122/66; PULSE 70; RESP 16; O2SAT 96
--- NOTE | 2018-12-16 17:06 | ED.SKABFB ---
HPI - Skin/Abscess/Foreign Bdy <Sybil Khanmer, [employer] SUPERINTENDENT-BC - Last Filed: 12/16/18 20:39> General Chief complaint: Skin/Abscess/Foreign Body Stated complaint: swelling/pain left side of face x1day Time Seen by Provider: 12/16/18 14:43 Source: patient Mode of arrival: ambulatory Limitations: no limitations History of Present Illness HPI narrative: The patient is a 68-year-old female nonsmoker with extensive cardiac history of presents with chief complaint of swelling at the angle of her left jaw. She denies any fevers nausea vomiting or diarrhea. She does state that she felt warm the other day. She states she woke up with this pain and swelling. She has not taken anything for the pain or swelling. She denies any chest pain or shortness of breath. She does have history of chronic kidney disease, is on Coumadin and thus does not take anti-inflammatories. Related Data Home Medications Medication Instructions Recorded Confirmed amiodarone 200 mg PO QDAY #0 11/26/16 10/28/17 aspirin 81 mg PO QDAY #0 11/26/16 10/28/17 atorvastatin 40 mg PO HS #0 11/26/16 10/28/17 bupropion HCl [Wellbutrin XL] 150 mg PO DAILY #0 11/26/16 07/24/18 buspirone 15 mg PO BID #0 11/26/16 07/24/18 pantoprazole [Protonix] 40 mg PO BID #0 11/26/16 07/24/18 warfarin [Coumadin] 2.5 mg PO QDAY #0 11/26/16 07/24/18 acetaminophen [Acetaminophen Extra 1,000 mg PO Q6H PRN 10/28/17 10/28/17 Strength] alprazolam 0.5 mg PO BID PRN 10/28/17 10/28/17 biotin 10,000 mcg PO DAILY 10/28/17 10/28/17 cyanocobalamin (vitamin B-12) 1,000 mcg PO DAILY 10/28/17 10/28/17 [Vitamin B-12] fluticasone propionate 1 spray INTRANASAL BID 10/28/17 10/28/17 folic acid 400 mcg PO DAILY 10/28/17 10/28/17 furosemide [Lasix] 60 mg PO BID 10/28/17 10/28/17 losartan 12.5 mg PO DAILY 10/28/17 07/24/18 fluoxetine 40 mg PO DAILY 07/24/18 07/24/18 metoprolol succinate 25 mg PO BID 07/24/18 07/24/18 mirtazapine 07/24/18 Previous Rx's Medication Instructions Recorded albuterol sulfate [Ventolin HFA] 2 puff INH RTQ4HR PRN #1 g 10/31/17 oxycodone 5 mg PO Q4-6H PRN #7 tab 07/24/18 acetaminophen-codeine 1 tab PO BID PRN #5 tab 12/16/18 Allergies Allergy/AdvReac Type Severity Reaction Status Date / Time shellfish derived Allergy Mild HIVES Verified 07/24/18 15:19 [SHELLFISH DERIVED] azithromycin [AZITHROMYCIN] Allergy Unknown SWOLLEN Verified 07/24/18 15:19 LIPS diltiazem [From CARDIZEM] Allergy Unknown HEART BLOCK Verified 07/24/18 15:19 trazodone [TRAZODONE] Allergy Unknown STOP Verified 07/24/18 15:19 BREATHING doxycycline [DOXYCYCLINE] AdvReac Mild STOMACH Verified 07/24/18 15:19 UPSET Review of Systems <MERA Perea - Last Filed: 12/16/18 20:39> Review of Systems GENERAL: Denies chills, fatigue, malaise, fever, sweats. HEENT: See HPI RESPIRATORY: Denies dyspnea, cough, wheezing, hemoptysis, sputum. CARDIOVASCULAR: Denies chest pain, palpitations, orthopnea, edema, GASTROINTESTINAL: Denies nausea, vomiting, abdominal pain, diarrhea, constipation, melena. : Denies dysuria, frequency, incontinence, hematuria, urinary retention. MUSCULOSKELETAL: denies weakness, joint pain, or bony pain SKIN: Denies rash, skin lesions, or other NEUROLOGIC: Denies weakness, headache, numbness, change in speech, confusion, seizures, incoordination. PSYCHIATRIC: No concerning psychosocial issues. 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 Rheumatic heart disease. 2. CAD. 3. Hypertension. 4. Depression. 5. Panic disorder. 6. Hiatal hernia. 7. Migraines. 8. Carotid stenosis. 9. Osteopenia. 10. Osteoarthritis. 11. Hyperlipidemia. 12. PAF. 13. Hemolytic anemia 14. Chronic kidney disease. Past Surgical History 1. Aortic and mitral valve replacement. 2. CABG x1. 3. Tubal ligation. 4. Hemorrhagic 2. 5. Transfemoral cath with mitral valve implantation. October 2016. 6. Transvenous pacemaker placement. October 2016. 7. Right femoral vein closure October 2016. Social History household members: family and children Smoking Status: Never smoker alcohol intake: never additional social history: Past Medical History 1. Rheumatic heart disease. 2. CAD. 3. Hypertension. 4. Depression. 5. Panic disorder. 6. Hiatal hernia. 7. Migraines. 8. Carotid stenosis. 9. Osteopenia. 10. Osteoarthritis. 11. Hyperlipidemia. 12. PAF. 13. Hemolytic anemia 14. Chronic kidney disease. Past Surgical History 1. Aortic and mitral valve replacement. 2. CABG x1. 3. Tubal ligation. 4. Hemorrhagic 2. 5. Transfemoral cath with mitral valve implantation. October 2016. 6. Transvenous pacemaker placement. October 2016. 7. Right femoral vein closure October 2016. Exam <MERA Perea - Last Filed: 12/16/18 20:39> Narrative Exam Narrative: GENERAL: This is a well-nourished, well-developed patient, no acute distress HEAD: Atraumatic. Normocephalic. No temporal or scalp tenderness. EYES: Pupils equal round and reactive. Extraocular motions intact. No scleral icterus. No injection or drainage. ENT: Nose without bleeding, purulent drainage or septal hematoma. Throat without erythema, tonsillar hypertrophy or exudate. Uvula midline. Airway patent. Pain to palpation ankle of left jaw. Small amount of swelling appreciated. NECK: Trachea midline. No JVD or lymphadenopathy. Supple, nontender, no meningeal signs. CARDIOVASCULAR: Regular rate and rhythm RESPIRATORY: Clear to auscultation. Breath sounds equal bilaterally. No wheezes, rales, or rhonchi. No cough. No increased respiratory effort. No accessory muscle use. GASTROINTESTINAL: Abdomen soft, non-tender, nondistended. No hepato-splenomegaly, or palpable masses. No guarding. EXTREMITIES: No clubbing, cyanosis, or edema. No joint tenderness, effusion, or edema noted. BACK: Nontender without deformity or crepitance. No flank tenderness. NEURO: AOx3. SKIN: No rash erythema ecchymosis laceration contusion or abrasion noted left jaw angle Initial Vital Signs Initial Vital Signs: Vital Signs Temperature 97.7 F 12/16/18 14:24 Pulse Rate 68 12/16/18 14:24 Respiratory Rate 18 12/16/18 14:24 Blood Pressure 111/78 12/16/18 14:24 Pulse Oximetry 96 12/16/18 14:24 <Dayana Rios MD - Last Filed: 12/18/18 07:18> Initial Vital Signs Initial Vital Signs: Vital Signs Temperature 97.7 F 12/16/18 14:24 Pulse Rate 68 12/16/18 14:24 Respiratory Rate 18 12/16/18 14:24 Blood Pressure 111/78 12/16/18 14:24 Pulse Oximetry 96 12/16/18 14:24 Course <YOLA Perea-TIM - Last Filed: 12/16/18 20:39> Orders Ordered: Discontinued Medications Acetaminophen/Codeine Phosphate (Tylenol #3) 1 tab PO NOW ONE Stop: 12/16/18 16:08 Last Admin: 12/16/18 16:12 Dose: 1 tab Ondansetron HCl (Zofran Odt) 4 mg SL NOW ONE Stop: 12/16/18 16:08 Last Admin: 12/16/18 16:12 Dose: 4 mg Tramadol HCl (Ultram) 50 mg PO NOW ONE Stop: 12/16/18 15:51 Last Admin: 12/16/18 16:01 Dose: Not Given Vital Signs - 8 hr 12/16/18 14:24 12/16/18 16:57 Temperature 97.7 F Pulse Rate 68 70 Respiratory Rate 18 16 Blood Pressure 111/78 Blood Pressure [Left Arm] 122/66 Pulse Oximetry 96 96 <Dayana Rios MD - Last Filed: 12/18/18 07:18> Orders Ordered: Discontinued Medications Acetaminophen/Codeine Phosphate (Tylenol #3) 1 tab PO NOW ONE Stop: 12/16/18 16:08 Last Admin: 12/16/18 16:12 Dose: 1 tab Ondansetron HCl (Zofran Odt) 4 mg SL NOW ONE Stop: 12/16/18 16:08 Last Admin: 12/16/18 16:12 Dose: 4 mg Tramadol HCl (Ultram) 50 mg PO NOW ONE Stop: 12/16/18 15:51 Last Admin: 12/16/18 16:01 Dose: Not Given Vital Signs - 8 hr 12/16/18 14:24 12/16/18 16:57 Temperature 97.7 F Pulse Rate 68 70 Respiratory Rate 18 16 Blood Pressure 111/78 Blood Pressure [Left Arm] 122/66 Pulse Oximetry 96 96 MDM - Skin/Abscess/Foreign Bdy <YOLA Perea- - Last Filed: 12/16/18 20:39> Lab Data Result diagrams: 12/16/18 16:00 12/16/18 16:00 Lab Results 12/16/18 12/16/18 Range/Units 16:00 16:00 WBC 8.4 (4.5-11.0) X10^3/uL RBC 4.27 (4.0-5.2) X10^6/uL Hgb 12.3 (12.0-16.0) g/dL Hct 37.5 (36-46) % MCV 87.9 (80-100) fL MCH 28.9 (26-34) PG MCHC 32.8 (30-36) % RDW 14.0 (11.6-14.8) % Plt Count 270 (150-400) X10^3/uL Neut % (Auto) 70.3 (50-75) % Lymph % (Auto) 18.0 L (25-40) % Hays % (Auto) 9.6 (3-14) % Eos % (Auto) 1.5 L (2-4) % Baso % (Auto) 0.6 (0-2) % Neut # (Auto) 5900 (3996-4589) /uL Lymph # (Auto) 1500 (2840-7230) /uL Hays # (Auto) 800 (0-900) /uL Eos # (Auto) 100 (0-450) /uL Baso # (Auto) 0 (0-100) /uL Sodium 143 (137-145) mmol/L Potassium 4.1 (3.4-5.1) mmol/L Chloride 103 (98-107) mmol/L Carbon Dioxide 32 (22-32) mmol/L BUN 27 H (7-17) mg/dL Creatinine 2.00 H (0.52-1.04) mg/dL Estimated GFR 24.9 L (>60) mL/min BUN/Creatinine Ratio 13.5 (6-22) Glucose 103 (80-110) mg/dL Calcium 9.1 (8.4-10.2) mg/dL Total Bilirubin 0.6 (0.2-1.3) mg/dL AST 25 (14-36) IU/L ALT 11 (9-52) IU/L Alkaline Phosphatase 109 (38-126) U/L Total Protein 7.9 (6.3-8.2) g/dL Albumin 4.4 (3.5-5.0) g/dL Globulin 3.5 (1.7-4.1) g/dL Albumin/Globulin Ratio 1.3 (1.0-2.8) MDM Narrative Medical decision making narrative: The patient is a 68-year-old female who presents with a chief complaint of pain and swelling at the angle of her left jaw. We discussed the possibility of parotitis, but elected to do lab work to evaluate for an elevated white blood cell count to check for suppurative parotitis. She does not have a fever, does not have an elevated white blood cell count, has no overlying erythema. I discussed at length use of lemon candies, facilitating saliva production. This is very reassuring. I discussed at length a trial of conservative measures. This is very reassuring to her as many antibiotics interfere with her warfarin use and she has decreased renal function. I discussed at length follow up with her primary care physician as soon as possible coming back to the emergency department for any acute concerns such as chest pain, shortness of breath, inability keep down fever etc. Patient has no questions or concerns upon discharge. plan discussed with Dr Rios <Dayana Rios MD - Last Filed: 12/18/18 07:18> Lab Data Lab Results 12/16/18 12/16/18 Range/Units 16:00 16:00 WBC 8.4 (4.5-11.0) X10^3/uL RBC 4.27 (4.0-5.2) X10^6/uL Hgb 12.3 (12.0-16.0) g/dL Hct 37.5 (36-46) % MCV 87.9 (80-100) fL MCH 28.9 (26-34) PG MCHC 32.8 (30-36) % RDW 14.0 (11.6-14.8) % Plt Count 270 (150-400) X10^3/uL Neut % (Auto) 70.3 (50-75) % Lymph % (Auto) 18.0 L (25-40) % Hays % (Auto) 9.6 (3-14) % Eos % (Auto) 1.5 L (2-4) % Baso % (Auto) 0.6 (0-2) % Neut # (Auto) 5900 (1562-0700) /uL Lymph # (Auto) 1500 (1897-6718) /uL Hays # (Auto) 800 (0-900) /uL Eos # (Auto) 100 (0-450) /uL Baso # (Auto) 0 (0-100) /uL Sodium 143 (137-145) mmol/L Potassium 4.1 (3.4-5.1) mmol/L Chloride 103 (98-107) mmol/L Carbon Dioxide 32 (22-32) mmol/L BUN 27 H (7-17) mg/dL Creatinine 2.00 H (0.52-1.04) mg/dL Estimated GFR 24.9 L (>60) mL/min BUN/Creatinine Ratio 13.5 (6-22) Glucose 103 (80-110) mg/dL Calcium 9.1 (8.4-10.2) mg/dL Total Bilirubin 0.6 (0.2-1.3) mg/dL AST 25 (14-36) IU/L ALT 11 (9-52) IU/L Alkaline Phosphatase 109 (38-126) U/L Total Protein 7.9 (6.3-8.2) g/dL Albumin 4.4 (3.5-5.0) g/dL Globulin 3.5 (1.7-4.1) g/dL Albumin/Globulin Ratio 1.3 (1.0-2.8) Discharge Plan Departure Patient Disposition: Home Clinical Impression: Acute parotitis Discharge Date/Time: 12/16/18 17:21 Interventions: ED Discharge Assessment Last Done: 12/16/18 17:20 Instructions: DI for Parotitis-Adult Activity Restrictions/Additional Instructions: You do not have an elevated white blood cell count on your labs, do not have a high heart rate or a fever. Thus it is reassuring that your parotitis is not bacterial. Please suck on lemon or sour candies to help expedite saliva production. I have given you a small prescription of Tylenol 3. Please monitor for fever, redness, worsening or lack of improvement. Please come back to the emergency department for any acute concerns such as chest pain or shortness of breath. Please follow up with primary care provider soon as possible. Prescriptions: New acetaminophen-codeine 300-30 mg tablet 1 tab PO BID PRN (Reason: pain) Qty: 5 RF: 0 No Action pantoprazole [Protonix] 40 MG tablet,delayed release (DR/EC) 40 mg PO BID Qty: 0 RF: 0 amiodarone 200 MG tablet 200 mg PO QDAY Qty: 0 RF: 0 atorvastatin 40 MG tablet 40 mg PO HS Qty: 0 RF: 0 aspirin 81 MG tablet,delayed release (DR/EC) 81 mg PO QDAY Qty: 0 RF: 0 bupropion HCl [Wellbutrin XL] 150 MG tablet extended release 24 hr 150 mg PO DAILY Qty: 0 RF: 0 warfarin [Coumadin] 5 MG tablet 2.5 mg PO QDAY Qty: 0 RF: 0 buspirone 15 MG tablet 15 mg PO BID Qty: 0 RF: 0 cyanocobalamin (vitamin B-12) [Vitamin B-12] 1,000 mcg Tablet 1,000 mcg PO DAILY RF: 0 folic acid 400 mcg Tablet 400 mcg PO DAILY RF: 0 acetaminophen [Acetaminophen Extra Strength] 500 mg Tablet 1,000 mg PO Q6H PRN (Reason: Pain (Scale Score 1-3)) RF: 0 alprazolam 0.5 mg Tablet 0.5 mg PO BID PRN (Reason: Anxiety) RF: 0 losartan 25 mg Tablet 12.5 mg PO DAILY RF: 0 furosemide [Lasix] 20 mg Tablet 60 mg PO BID RF: 0 fluticasone propionate 50 mcg/actuation [place],Suspension 1 spray INTRANASAL BID RF: 0 biotin 10,000 mcg Tablet,Disintegrating 10,000 mcg PO DAILY RF: 0 albuterol sulfate [Ventolin HFA] 90 mcg/actuation Hfa Aerosol Inhaler 2 puff INH RTQ4HR PRN (Reason: Shortness Of Breath) Qty: 1 RF: 0 fluoxetine 40 mg capsule 40 mg PO DAILY RF: 0 mirtazapine 15 mg tablet RF: 0 metoprolol succinate 25 mg tablet extended release 24 hr 25 mg PO BID RF: 0 oxycodone 5 mg tablet 5 mg PO Q4-6H PRN (Reason: pain) Qty: 7 RF: 0 Referrals: Mitchel Quiroz DO [Primary Care Provider] -
== END 2018-12-16 17:21 | disposition home or self-care (01) ==
PROVIDERS: Emergency Provider Nurse Practitioner Family; Family Provider Family Medicine; PCP Family Medicine
DX: K11.21 Acute sialoadenitis (principal)
CPT/HCPCS: 36415; 80053; 85025; 99283

== ENCOUNTER 2019-03-28 17:03 | Emergency (ER) | payer MEDICARE, OTHER, SELFPAY ==
[2017-10-28 12:18] VITALS: BMI 29.2
[2019-03-28 17:13] VITALS: BP 132/75; PULSE 69; RESP 14; TEMP 37.1; O2SAT 95; BMI 32.3
--- NOTE | 2019-03-28 17:36 | DI.CT.S_ITS ---
PROCEDURE: CT HEAD/BRAIN WO CON INDICATIONS: fall on Coumadin TECHNIQUE: Noncontrast 4.5 mm thick angled axial sections acquired from the foramen magnum to the vertex, with coronal and sagittal reformats. For radiation dose reduction, the following was used: automated exposure control, adjustment of mA and/or kV according to patient size. COMPARISON: None. FINDINGS: Image quality: Excellent. CSF spaces: Basal cisterns are patent. No extra-axial fluid collections. The ventricles are symmetric in size and shape. Brain: No intracranial bleeds or masses. There is cerebral volume loss for age, with resultant ventricular and sulcal prominence. There are periventricular and deep white matter chronic small vessel ischemic changes. Symmetric calcification is seen in the basal ganglia, which is considered the within normal limits for age. There is intracranial internal carotid artery atherosclerosis. Skull and face: Calvarium and visualized facial bones appear intact, without suspicious lesions. Sinuses: Visualized sinuses and mastoids are clear. IMPRESSION: No acute intracranial hemorrhage is seen. No acute intracranial process is seen. Note is made of age-appropriate brain parenchymal volume loss and chronic small vessel ischemic changes. Dictated by: David Charles M.D. on 03/28/2019 at 17:01 Approved by: David Charles M.D. on 03/28/2019 at 17:02
--- NOTE | 2019-03-28 18:20 | ED_ITS ---
HPI - Head Injury General Chief complaint: Head Injury Stated complaint: FALL, HIT BACK OF HEAD Time Seen by Provider: 03/28/19 17:31 Source: patient Mode of arrival: Wheelchair Limitations: no limitations History of Present Illness HPI Narrative: 69-year-old female nonsmoker on Coumadin for AFib presents with a chief complaint of a mechanical fall in which she fell backwards and struck her head. She denies any loss of consciousness nor nausea or vomiting. She is at her baseline and denies any focal neurologic findings such as numbness, weakness or tingling. She denies other injury and is at her baseline. She is activated as a modified trauma given her fall with head injury on anticoagulation MD Complaint: head injury Onset (ago): hour(s) Mechanism of Injury: fall Place: home Loss of Consciousness: no Severity: mild Radiation: none Other Injuries: none Associated symptoms: denies other symptoms Related Data Home Medications Medication Instructions Recorded Confirmed amiodarone 200 mg PO QDAY #0 11/26/16 10/28/17 aspirin 81 mg PO QDAY #0 11/26/16 10/28/17 atorvastatin 40 mg PO BEDTIME #0 11/26/16 03/28/19 bupropion HCl [Wellbutrin XL] 150 mg PO DAILY #0 11/26/16 03/28/19 buspirone 15 mg PO BID #0 11/26/16 03/28/19 pantoprazole [Protonix] 40 mg PO BID #0 11/26/16 03/28/19 warfarin [Coumadin] 2.5 mg PO QDAY #0 11/26/16 07/24/18 acetaminophen [Acetaminophen Extra 1,000 mg PO Q6H PRN 10/28/17 10/28/17 Strength] alprazolam 0.5 mg PO DAILY 10/28/17 03/28/19 biotin 10,000 mcg PO DAILY 10/28/17 10/28/17 cyanocobalamin (vitamin B-12) 1,000 mcg PO DAILY 10/28/17 10/28/17 [Vitamin B-12] fluticasone propionate 1 spray INTRANASAL BID 10/28/17 03/28/19 folic acid 400 mcg PO DAILY 10/28/17 10/28/17 furosemide [Lasix] 60 mg PO BID 10/28/17 10/28/17 losartan 12.5 mg PO DAILY 10/28/17 03/28/19 fluoxetine 40 mg PO DAILY 07/24/18 03/28/19 mirtazapine 07/24/18 allopurinol 150 mg PO DAILY 03/28/19 03/28/19 colchicine 0.3 mg PO DAILY PRN 03/28/19 03/28/19 metoprolol succinate 50 mg PO BID 03/28/19 03/28/19 warfarin 03/28/19 Previous Rx's Medication Instructions Recorded albuterol sulfate [Ventolin HFA] 2 puff INH RTQ4HR PRN #1 g 10/31/17 oxycodone 5 mg PO Q4-6H PRN #7 tab 07/24/18 acetaminophen-codeine 1 tab PO BID PRN #5 tab 12/16/18 Allergies Allergy/AdvReac Type Severity Reaction Status Date / Time shellfish derived Allergy Mild HIVES Verified 03/28/19 17:23 [SHELLFISH DERIVED] azithromycin [AZITHROMYCIN] Allergy Unknown SWOLLEN Verified 03/28/19 17:23 LIPS diltiazem [From CARDIZEM] Allergy Unknown HEART BLOCK Verified 03/28/19 17:23 trazodone [TRAZODONE] Allergy Unknown STOP Verified 03/28/19 17:23 BREATHING doxycycline [DOXYCYCLINE] AdvReac Mild STOMACH Verified 03/28/19 17:23 UPSET Review of Systems Constitutional Constitutional: Denies chills, Denies fatigue, Denies fever(s), Denies frequent falls, Denies lethargy and Denies weakness Eyes Eyes: Denies change in vision, Denies eye discharge, Denies irritation and Denies loss of vision ENT Ears, Nose, Mouth, and Throat: Denies change in voice, Denies dizziness, Denies neck pain, Denies sore throat and Denies throat swelling Cardiovascular Cardiovascular: Denies chest pain, Denies irregular heart rhythm, Denies lightheadedness, Denies palpitations, Denies dyspnea, Denies dyspnea on exertion and Denies orthopnea Respiratory Respiratory: Denies cough, Denies dyspnea, Denies dyspnea on exertion and Denies wheezing Gastrointestinal Gastrointestinal: Denies abdominal pain, Denies change in bowel habits, Denies diarrhea, Denies nausea and Denies vomiting Genitourinary Genitourinary: Denies hematuria, Denies flank pain, Denies urinary incontinence and Denies urinary urgency Musculoskeletal Musculoskeletal: Denies back pain, Denies muscle weakness, Denies neck pain, Denies numbness and Denies tingling Integumentary/Breasts Skin/Breast: Denies pruritus, Denies erythema, Denies rash and Denies wounds Neurologic Neurologic: Denies behavioral changes, Denies confusion, Denies dizziness, Denies frequent falls, Denies loss of vision, Denies numbness, Denies tingling and Denies weakness Psychiatric Psychiatric: Denies anxiety, Denies behavioral changes, Denies confusion, Denies depression, Denies homicidal ideation and Denies suicidal ideation Endocrine Endocrine: Denies fatigue, Denies flushing and Denies palpitations Hematologic/Lymphatic Hematologic/Lymphatic: Denies easy bruising Allergic/Immunologic Allergic/Immunologic: Denies urticaria, Denies throat swelling and Denies wheezing [facility] Medical History Afib (Chronic) Anemia aplastic aregenerative (Chronic) CAD (coronary atherosclerotic disease) (Chronic) Chronic renal failure (Chronic) Depression (Acute) Endocarditis (Resolved) Hemolytic anemia (Chronic) Hyperlipemia (Acute) Migraine (Acute) SUPERFICIAL LACERATION OF TONGUE (Chronic) Surgical History 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 Rheumatic heart disease. 2. CAD. 3. Hypertension. 4. Depression. 5. Panic disorder. 6. Hiatal hernia. 7. Migraines. 8. Carotid stenosis. 9. Osteopenia. 10. Osteoarthritis. 11. Hyperlipidemia. 12. PAF. 13. Hemolytic anemia 14. Chronic kidney disease. Past Surgical History 1. Aortic and mitral valve replacement. 2. CABG x1. 3. Tubal ligation. 4. Hemorrhagic 2. 5. Transfemoral cath with mitral valve implantation. October 2016. 6. Transvenous pacemaker placement. October 2016. 7. Right femoral vein closure October 2016. Social History household members: family and children Smoking Status: Never smoker alcohol intake: never additional social history: Past Medical History 1. Rheumatic heart disease. 2. CAD. 3. Hypertension. 4. Depression. 5. Panic disorder. 6. Hiatal hernia. 7. Migraines. 8. Carotid stenosis. 9. Osteopenia. 10. Osteoarthritis. 11. Hyperlipidemia. 12. PAF. 13. Hemolytic anemia 14. Chronic kidney disease. Past Surgical History 1. Aortic and mitral valve replacement. 2. CABG x1. 3. Tubal ligation. 4. Hemorrhagic 2. 5. Transfemoral cath with mitral valve implantation. October 2016. 6. Transvenous pacemaker placement. October 2016. 7. Right femoral vein closure October 2016. Exam Narrative Exam Narrative: GENERAL: [69] year old patient appears stated age. Well- nourished, well-developed patient, in mild distress. GCS 15 HEAD: SSmall occipital contusion. No evidence of depressed skull fracture EYES: Pupils equal round and reactive. Extraocular motions intact. No scleral icterus. No injection or drainage. ENT: Nose without bleeding, purulent drainage. Throat without erythema, tonsillar hypertrophy or exudate. Airway patent. NECK: Trachea midline. Non tender CARDIOVASCULAR: Regular rate and rhythm without murmurs, gallops, or rubs. RESPIRATORY: Clear to auscultation. Breath sounds equal bilaterally. No wheezes, rales, or rhonchi. GASTROINTESTINAL: Abdomen soft, non-tender, nondistended. EXTREMITIES: No edema or joint tenderness. BACK: Nontender without deformity or crepitance. No flank tenderness. NEURO: AOx3. SKIN: No rash or erythema of visible areas Initial Vital Signs Initial Vital Signs: Vital Signs Temperature 98.7 F 03/28/19 17:13 Pulse Rate 69 03/28/19 17:13 Respiratory Rate 14 03/28/19 17:13 Blood Pressure 132/75 03/28/19 17:13 Pulse Oximetry 95 03/28/19 17:13 Course Orders Ordered: ED Orders 03/28/19 17:36 CT head/brain wo con Stat 03/28/19 18:38 Prothrombin Time INR Stat Vital Signs Vital signs: Vital Signs - 8 hr 03/28/19 19:33 Pulse Rate 64 Blood Pressure 122/82 Pulse Oximetry 93 MDM - Head Injury Lab Data Labs: Lab Results 03/28/19 Range/Units 18:38 PT 26.4 H (10.1-12.7) SECONDS INR 2.3 H (0.9-1.3) Discharge Plan Departure Patient Disposition: Home Clinical Impression: Contusion of scalp Qualifiers: Encounter type: initial encounter Qualified Code(s): S00.03XA - Contusion of scalp, initial encounter Discharge Date/Time: 03/28/19 20:02 Instructions: DI for Closed Head Injury Activity Restrictions/Additional Instructions: *You have been diagnosed with [fall with scalp contusion] *What to do: *Take medications as directed *Follow up with your primary care provider in 2-3 days, call for an appointment. Let them know you were seen in the Emergency Department and that we ask that you be seen in follow up *Return to ER if you should have any new, worsening or concerning symptoms, such as [ increasing pain, vomiting, neurologic problems like increased dizziness, numbness, tingling or other] Prescriptions: No Action pantoprazole [Protonix] 40 MG tablet,delayed release (DR/EC) 40 mg PO BID Qty: 0 RF: 0 amiodarone 200 MG tablet 200 mg PO QDAY Qty: 0 RF: 0 atorvastatin 40 MG tablet 40 mg PO BEDTIME Qty: 0 RF: 0 aspirin 81 MG tablet,delayed release (DR/EC) 81 mg PO QDAY Qty: 0 RF: 0 bupropion HCl [Wellbutrin XL] 150 MG tablet extended release 24 hr 150 mg PO DAILY Qty: 0 RF: 0 warfarin [Coumadin] 5 MG tablet 2.5 mg PO QDAY Qty: 0 RF: 0 buspirone 15 MG tablet 15 mg PO BID Qty: 0 RF: 0 cyanocobalamin (vitamin B-12) [Vitamin B-12] 1,000 mcg Tablet 1,000 mcg PO DAILY RF: 0 folic acid 400 mcg Tablet 400 mcg PO DAILY RF: 0 acetaminophen [Acetaminophen Extra Strength] 500 mg Tablet 1,000 mg PO Q6H PRN (Reason: Pain (Scale Score 1-3)) RF: 0 alprazolam 0.5 mg Tablet 0.5 mg PO DAILY RF: 0 losartan 25 mg Tablet 12.5 mg PO DAILY RF: 0 furosemide [Lasix] 20 mg Tablet 60 mg PO BID RF: 0 fluticasone propionate 50 mcg/actuation [place],Suspension 1 spray INTRANASAL BID RF: 0 biotin 10,000 mcg Tablet,Disintegrating 10,000 mcg PO DAILY RF: 0 albuterol sulfate [Ventolin HFA] 90 mcg/actuation Hfa Aerosol Inhaler 2 puff INH RTQ4HR PRN (Reason: Shortness Of Breath) Qty: 1 RF: 0 fluoxetine 40 mg capsule 40 mg PO DAILY RF: 0 mirtazapine 15 mg tablet RF: 0 oxycodone 5 mg tablet 5 mg PO Q4-6H PRN (Reason: pain) Qty: 7 RF: 0 acetaminophen-codeine 300-30 mg tablet 1 tab PO BID PRN (Reason: pain) Qty: 5 RF: 0 allopurinol 300 mg tablet 150 mg PO DAILY RF: 0 colchicine 0.6 mg tablet 0.3 mg PO DAILY PRN (Reason: Gout) RF: 0 metoprolol succinate 50 mg tablet extended release 24 hr 50 mg PO BID RF: 0 warfarin 5 mg tablet RF: 0 Referrals: Mitchel Quiroz DO [Primary Care Provider] -
[2019-03-28 18:58] LABS: INR 2.3 (0.9-1.3); Prothrombin Time 26.4 SECONDS (10.1-12.7)
[2019-03-28 19:33] VITALS: BP 122/82; PULSE 64; O2SAT 93
--- NOTE | 2019-03-28 20:01 | PC.NURSE ---
PT's son arrived. Pt departed department at this time. Assisted into w/c at time of discharge.
== END 2019-03-28 20:02 | disposition home or self-care (01) ==
PROVIDERS: Emergency Provider Emergency Medicine; Family Provider Family Medicine; PCP Family Medicine
DX: S00.03XA Contusion of scalp, initial encounter (principal); Z79.01 Long term (current) use of anticoagulants; W19.XXXA Unspecified fall, initial encounter
CPT/HCPCS: 36415; 70450; 85610; 99282; 99284

== ENCOUNTER 2020-02-15 10:54 | Observation (INO) | payer MEDICARE, OTHER, SELFPAY ==
[2017-10-28 12:18] VITALS: BMI 29.2
[2020-02-15] VITALS (30 sets, daily range): BP systolic 89–145; BP diastolic 45–92; PULSE 65–84; RESP 12–20; TEMP 36–37.8; O2SAT 91–100; BMI 34.0
--- NOTE | 2020-02-15 11:54 | ED.GIBLEED ---
HPI - GI Bleed General Chief complaint: GI Bleed Stated complaint: Rectal Bleeding Post Colonoscopy Time Seen by Provider: 02/15/20 11:15 Source: patient Mode of arrival: Wheelchair Limitations: no limitations History of Present Illness HPI Narrative: Patient is a 69-year-old female is currently on Lovenox shots for atrial fibrillation who had a colonoscopy yesterday with multiple polyps removed presenting today with rectal bleeding. She noticed she thought she had some his last night but was not sure she fell asleep and woke up with large blood stated in her underwear bed sheets and pajamas. She then had 1 large bloody bowel movement with multiple clots. She has some mild abdominal cramping no nausea vomiting or pain. A colonoscopy was done at [facility]. She denies any dizziness lightheadedness shortness of breath. Patient is currently taking Lovenox shots she was on Coumadin for atrial fibrillation however for the colonoscopy is she stopped her Coumadin and start Lovenox shots she has not yet restarted her Coumadin. MD complaint: gross hematochezia Related Data Home Medications Medication Instructions Recorded Confirmed amiodarone 200 mg PO QDAY #0 11/26/16 02/15/20 aspirin 81 mg PO QDAY #0 11/26/16 02/15/20 atorvastatin 40 mg PO BEDTIME #0 11/26/16 02/15/20 buspirone 15 mg PO BID #0 11/26/16 02/15/20 pantoprazole [Protonix] 40 mg PO BID #0 11/26/16 02/15/20 warfarin [Coumadin] 2.5 mg PO QDAY #0 11/26/16 02/15/20 acetaminophen [Acetaminophen Extra 1,000 mg PO Q6H PRN 10/28/17 02/15/20 Strength] alprazolam 0.5 mg PO DAILY PRN 10/28/17 02/15/20 cyanocobalamin (vitamin B-12) 1,000 mcg PO DAILY 10/28/17 02/15/20 [Vitamin B-12] fluticasone propionate 1 spray INTRANASAL BID PRN 10/28/17 02/15/20 folic acid 400 mcg PO DAILY 10/28/17 02/15/20 furosemide [Lasix] 40 mg PO BID 10/28/17 02/15/20 losartan 12.5 mg PO DAILY 10/28/17 02/15/20 fluoxetine 60 mg PO DAILY 07/24/18 02/15/20 allopurinol 150 mg PO DAILY 03/28/19 02/15/20 metoprolol succinate 75 mg PO BID 03/28/19 02/15/20 warfarin 5 mg PO WEEKLY 03/28/19 02/15/20 Previous Rx's Medication Instructions Recorded albuterol sulfate [Ventolin HFA] 2 puff INH RTQ4HR PRN #1 g 10/31/17 Allergies Allergy/AdvReac Type Severity Reaction Status Date / Time shellfish derived Allergy Mild HIVES Verified 03/28/19 17:23 [SHELLFISH DERIVED] azithromycin [AZITHROMYCIN] Allergy Unknown SWOLLEN Verified 03/28/19 17:23 LIPS diltiazem [From CARDIZEM] Allergy Unknown HEART BLOCK Verified 03/28/19 17:23 trazodone [TRAZODONE] Allergy Unknown STOP Verified 03/28/19 17:23 BREATHING doxycycline [DOXYCYCLINE] AdvReac Mild STOMACH Verified 03/28/19 17:23 UPSET Review of Systems Review of Systems Narrative: GENERAL: Denies chills, fatigue, malaise, fever, sweats, travel HEENT: Denies sinus pain, ear pain, sore throat, difficulty swallowing, neck pain RESPIRATORY: Denies dyspnea, cough, wheezing, hemoptysis, sputum. CARDIOVASCULAR: Denies chest pain, palpitations, orthopnea, edema GASTROINTESTINAL: Denies nausea, vomiting, abdominal pain, diarrhea, constipation, melena. : Denies dysuria, frequency, incontinence, hematuria, urinary retention, flank pain. MUSCULOSKELETAL: Denies weakness, joint pain, or bony pain SKIN: No rash, no erythema, no pruritus NEUROLOGIC: Denies weakness, dizziness, headache, numbness, change in speech, confusion PSYCHIATRIC: No concerning psychosocial issues. 12 point review of systems is negative except for those stated above and HPI 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 Rheumatic heart disease. 2. CAD. 3. Hypertension. 4. Depression. 5. Panic disorder. 6. Hiatal hernia. 7. Migraines. 8. Carotid stenosis. 9. Osteopenia. 10. Osteoarthritis. 11. Hyperlipidemia. 12. PAF. 13. Hemolytic anemia 14. Chronic kidney disease. Past Surgical History 1. Aortic and mitral valve replacement. 2. CABG x1. 3. Tubal ligation. 4. Hemorrhagic 2. 5. Transfemoral cath with mitral valve implantation. October 2016. 6. Transvenous pacemaker placement. October 2016. 7. Right femoral vein closure October 2016. Smoking Status: Never smoker alcohol intake frequency: other Substance Use Type: marijuana and other Exam Initial Vital Signs Initial Vital Signs: Vital Signs Temperature 100.1 F H 02/15/20 11:09 Pulse Rate 77 02/15/20 11:09 Respiratory Rate 16 02/15/20 11:09 Blood Pressure 141/67 H 02/15/20 11:09 Pulse Oximetry 96 02/15/20 11:09 GENERAL: Alert well-appearing female HEENT: Head atraumatic,EOMI, pupils reactive, face symmetric, moist mucous membranes CARDIOVASCULAR: Regular rate and rhythm without murmurs, rubs or gallops. RESPIRATORY: Breath sounds equal bilaterally, no wheezes rales or rhonchi. ABDOMEN: Soft, nontender. Normoactive bowel sounds all 4 quadrants. No guarding or rebound. RECTAL: Gross blood EXTREMITIES: Normal range of motion, no clubbing or edema. Neurovascularly intact NEUROLOGICAL: Alert and oriented x4.Normal gait and speech. SKIN: Warm, dry, no laceration, no petechiae, no rashes or lesions. Course Orders Ordered: ED Orders 02/15/20 11:14 EKG-12 Lead Routine 02/15/20 11:15 Complete Blood Count AUTO DIFF Stat Comprehensive Metabolic Panel Stat Lactate (Lactic Acid) Stat Partial Thromboplastin Time Stat Prothrombin Time INR Stat Alprazolam (Xanax) 0.5 mg PO BID PRN PRN Reason: Anxiety Atorvastatin Calcium (Lipitor) 40 mg PO BEDTIME JULIETTE Buspirone HCl (Buspar) 15 mg PO BID JULIETTE Fluoxetine HCl (Prozac) 60 mg PO DAILY JULIETTE Furosemide (Lasix) 40 mg PO 0800,1700 JULIETTE Lactated Ringer's (Lactated Ringers) 1,000 mls @ 100 mls/hr IV CONT JULIETTE Losartan Potassium (Cozaar) 12.5 mg PO DAILY JULIETTE Metoprolol Tartrate (Lopressor) 75 mg PO BID JULIETTE Pantoprazole Sodium (Protonix) 40 mg PO 0700,2100 JULIETTE Tramadol HCl (Ultram) 50 mg PO TID PRN PRN Reason: Pain, Moderate (4-6) Discontinued Medications Fentanyl (Sublimaze) 0 mcg IV Q5M PRN PRN Reason: Pain, Moderate (4-6) Sodium Chloride (Normal Saline 0.9%) 1,000 mls @ 125 mls/hr IV CONT JULIETTE Last Infusion: 02/15/20 16:40 Dose: 0 mls/hr Documented by: Admin: 02/15/20 15:34 Dose: 125 mls/hr Documented by: CHRISTINE Lactated Ringer's (Lactated Ringers) 1,000 mls @ 42 mls/hr IV CONT JULIETTE Last Infusion: 02/15/20 18:06 Dose: 0 mls/hr Documented by: Admin: 02/15/20 18:05 Dose: 42 mls/hr Documented by: ATEMES Sodium Chloride (Normal Saline 0.9%) 1,000 mls @ 100 mls/hr IV CONT JULIETTE Naloxone HCl (Narcan) 0.2 mg IV Q2MIN PRN PRN Reason: Opiate Reversal Vital Signs Vital signs: Vital Signs - 8 hr 02/15/20 11:29 02/15/20 11:50 02/15/20 11:53 Pulse Rate 72 71 Blood Pressure 115/74 Pulse Oximetry 95 95 02/15/20 12:00 02/15/20 12:01 02/15/20 12:30 Pulse Rate 70 70 68 Blood Pressure 115/55 L 109/63 Pulse Oximetry 96 95 95 02/15/20 13:00 02/15/20 13:30 02/15/20 13:31 Pulse Rate 69 71 70 Blood Pressure 117/57 L 102/55 L Pulse Oximetry 96 97 98 02/15/20 14:00 02/15/20 14:04 02/15/20 14:30 Pulse Rate 65 66 79 Blood Pressure 98/51 L 98/54 L Pulse Oximetry 98 97 100 02/15/20 14:31 02/15/20 15:00 02/15/20 15:30 Pulse Rate 80 72 68 Blood Pressure 106/57 L 105/67 Pulse Oximetry 100 98 96 02/15/20 15:31 02/15/20 16:00 02/15/20 16:30 Pulse Rate 68 67 70 Blood Pressure 109/51 L 97/52 L 111/59 L Pulse Oximetry 96 96 96 MDM - GI Bleed Lab Data Result diagrams: 02/15/20 17:54 02/15/20 11:15 Labs: Lab Results 02/15/20 02/15/20 02/15/20 Range/Units 11:15 11:15 11:15 WBC 7.6 (4.5-11.0) X10^3/uL RBC 4.34 (4.0-5.2) X10^6/uL Hgb 12.3 (12.0-16.0) g/dL Hct 38.3 (36-46) % MCV 88.3 (80-100) fL MCH 28.3 (26-34) PG MCHC 32.0 (30-36) % RDW 14.0 (11.6-14.8) % Plt Count 259 (150-400) X10^3/uL Neut % (Auto) 78.7 H (50-75) % Lymph % (Auto) 11.8 L (25-40) % Josephine % (Auto) 8.7 (3-14) % Eos % (Auto) 0.5 L (2-4) % Baso % (Auto) 0.3 (0-2) % Neut # (Auto) 6000 (3145-6644) /uL Lymph # (Auto) 900 L (8875-3504) /uL Josephine # (Auto) 700 (0-900) /uL Eos # (Auto) 0 (0-450) /uL Baso # (Auto) 0 (0-100) /uL PT 13.0 H (10.1-12.7) SECONDS INR 1.1 (0.9-1.3) APTT 32 D (26.4-36.2) SECONDS Sodium 138 (137-145) mmol/L Potassium 4.1 (3.4-5.1) mmol/L Chloride 104 (98-107) mmol/L Carbon Dioxide 25 (22-32) mmol/L BUN 28 H (7-17) mg/dL Creatinine 2.02 H (0.52-1.04) mg/dL Estimated GFR 24.5 L (>60) mL/min BUN/Creatinine Ratio 13.9 (6-22) Glucose 115 H (80-110) mg/dL Lactate (0.7-2.1) mmol/L Calcium 8.9 (8.4-10.2) mg/dL Total Bilirubin 0.8 (0.2-1.3) mg/dL AST 56 H (14-36) IU/L ALT 56 H (<35) IU/L Alkaline Phosphatase 121 (38-126) U/L Total Protein 7.6 (6.3-8.2) g/dL Albumin 4.3 (3.5-5.0) g/dL Globulin 3.3 (1.7-4.1) g/dL Albumin/Globulin Ratio 1.3 (1.0-2.8) 02/15/20 02/15/20 Range/Units 11:15 14:34 WBC (4.5-11.0) X10^3/uL RBC (4.0-5.2) X10^6/uL Hgb (12.0-16.0) g/dL Hct (36-46) % MCV (80-100) fL MCH (26-34) PG MCHC (30-36) % RDW (11.6-14.8) % Plt Count (150-400) X10^3/uL Neut % (Auto) (50-75) % Lymph % (Auto) (25-40) % Josephine % (Auto) (3-14) % Eos % (Auto) (2-4) % Baso % (Auto) (0-2) % Neut # (Auto) (0354-7881) /uL Lymph # (Auto) (6332-2904) /uL Josephine # (Auto) (0-900) /uL Eos # (Auto) (0-450) /uL Baso # (Auto) (0-100) /uL PT (10.1-12.7) SECONDS INR (0.9-1.3) APTT (26.4-36.2) SECONDS Sodium (137-145) mmol/L Potassium (3.4-5.1) mmol/L Chloride (98-107) mmol/L Carbon Dioxide (22-32) mmol/L BUN (7-17) mg/dL Creatinine (0.52-1.04) mg/dL Estimated GFR (>60) mL/min BUN/Creatinine Ratio (6-22) Glucose (80-110) mg/dL Lactate 2.5 H 3.1 H (0.7-2.1) mmol/L Calcium (8.4-10.2) mg/dL Total Bilirubin (0.2-1.3) mg/dL AST (14-36) IU/L ALT (<35) IU/L Alkaline Phosphatase (38-126) U/L Total Protein (6.3-8.2) g/dL Albumin (3.5-5.0) g/dL Globulin (1.7-4.1) g/dL Albumin/Globulin Ratio (1.0-2.8) MDM Narrative Medical decision making narrative: The patient's abdomen is soft and nontender at this time I do not think that she needs any imaging. She actually has had 2 episodes of rectal bleeding in the ED. I have called and spoke with Dr. Levine General surgery at [facility] initially requests that we talk with [facility]. Patient's lactate was rising while in the ED IV fluids were started hemoglobin hematocrit are stable she was never hypotensive or tachycardic. I waited a long time for [facility] to return phone call finally GI return phone call Dr. Levine actually spoke with them. Dr. Levine graciously took patient to the OR. Discharge Plan Departure Clinical Impression: Acute GI bleeding Admit Date/Time: 02/15/20 16:53 Admit Provider: Orlando Levine
[2020-02-15 12:20] LABS: Add Manual Diff / Slide Review NO; Basophils Absolute Auto 0 /uL (0-100); Basophils Percent Auto 0.3 % (0-2); Eosinophils Absolute Auto 0 /uL (0-450); Eosinophils Percent Auto 0.5 % (2-4); Hematocrit 38.3 % (36-46); Hemoglobin 12.3 g/dL (12.0-16.0); Lymphocytes Absolute Auto 900 /uL (1100-4500); Lymphocytes Percent Auto 11.8 % (25-40); Mean Corpuscular Hemoglobin 28.3 PG (26-34); Mean Corpuscular Volume 88.3 fL (80-100); Monocytes Absolute Auto 700 /uL (0-900); Monocytes Percent Auto 8.7 % (3-14); Neutrophils Absolute Auto 6000 /uL (1500-7000); Neutrophils Percent Auto 78.7 % (50-75); Platelet Count 259 X10^3/uL (150-400); Red Blood Cell Count 4.34 X10^6/uL (4.0-5.2); White Blood Cell Count 7.6 X10^3/uL (4.5-11.0)
[2020-02-15 12:21] LABS: INR 1.1 (0.9-1.3)
[2020-02-15 12:23] LABS: PTT Partial Thromboplastin Tim 32 SECONDS (26.4-36.2)
[2020-02-15 12:25] LABS: Alanine Aminotransferase 56 IU/L (<35); Albumin 4.3 g/dL (3.5-5.0); Albumin Globulin Ratio 1.3 (1.0-2.8); Alkaline Phosphatase 121 U/L (38-126); Aspartate Aminotransferase 56 IU/L (14-36); BUN Creatinine Ratio 13.9 (6-22); Bilirubin Total 0.8 mg/dL (0.2-1.3); Blood Urea Nitrogen 28 mg/dL (7-17); Calcium 8.9 mg/dL (8.4-10.2); Carbon Dioxide 25 mmol/L (22-32); Chloride 104 mmol/L (98-107); Estimated Glomerular Filt Rate 24.5 mL/min (>60); Globulin 3.3 g/dL (1.7-4.1); Glucose 115 mg/dL (80-110); HEMOLYSIS < 15 (0-50); Potassium 4.1 mmol/L (3.4-5.1); Sodium 138 mmol/L (137-145); Total Protein 7.6 g/dL (6.3-8.2)
[2020-02-15 12:27] LABS: Lactate (Lactic Acid) 2.5 mmol/L (0.7-2.1)
[2020-02-15 14:09] LABS: Reflexed Lactate in 2 Hours Y
[2020-02-15 14:51] LABS: Lactate 2HR (Lactic Acid Rflx) 3.1 mmol/L (0.7-2.1)
[2020-02-15] MEDS: SODIUM CHLORIDE 0.9% 1,000 ML 125 ML IV (15:34)
--- NOTE | 2020-02-15 16:18 | PM.HP.1 ---
History of Present Illness History of Present Illness Date Patient Seen: 02/15/20 Time Patient Seen: 16:18 Date of Onset of Symptoms: 02/15/20 Chief complaint: Rectal Bleeding Post Colonoscopy Narrative: The patient is a woman who had a colonoscopy yesterday at the [place]. She apparently had multiple small polyps removed. One about an 8 mm polyp had a clip applied to it. The patient is normally anticoagulated with Coumadin due to atrial fibrillation. 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 The valves are bovine. She presented to our emergency room with this history of bleeding after her colonoscopy. She said she felt some rumblings last night and woke up this morning with blood in her bed. She has had multiple bloody bowel movements including to since she has been here. Material IC is dark maroon. There is clot within it. She denies any abdominal pain. Noted at the time of her colonoscopy also were diverticuli. She last took Lovenox last night. She was on 80 mg twice a day. She has not taken her Coumadin yet. Her INR was 1.3 in the emergency room. Last p.o. was last night of solid food. This morning she took some of her medications with a sip of water. This did not include any anticoagulants and she did not take Lovenox this morning. Of note she reports that she has had colonoscopies with Versed and fentanyl and they do not sedate her. This last exam was done with propofol. 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) Mitral valve replaced (Chronic) Family & Social History Social History: household members family,children Safety & Behavioral: Feels Safe in Current Yes Environment Tobacco & Substance use: Smoking Status Never smoker alcohol intake never alcohol intake frequency other Substance Use Type marijuana,other Meds Home Medications and Allergies Home Medications Medication Instructions Recorded Confirmed Type amiodarone 200 mg PO QDAY #0 11/26/16 10/28/17 History aspirin 81 mg PO QDAY #0 11/26/16 10/28/17 History atorvastatin 40 mg PO BEDTIME #0 11/26/16 03/28/19 History bupropion HCl [Wellbutrin XL] 150 mg PO DAILY #0 11/26/16 03/28/19 History buspirone 15 mg PO BID #0 11/26/16 03/28/19 History pantoprazole [Protonix] 40 mg PO BID #0 11/26/16 03/28/19 History warfarin [Coumadin] 2.5 mg PO QDAY #0 11/26/16 07/24/18 History acetaminophen [Acetaminophen Extra 1,000 mg PO Q6H PRN 10/28/17 10/28/17 History Strength] alprazolam 0.5 mg PO DAILY 10/28/17 03/28/19 History biotin 10,000 mcg PO DAILY 10/28/17 10/28/17 History cyanocobalamin (vitamin B-12) 1,000 mcg PO DAILY 10/28/17 10/28/17 History [Vitamin B-12] fluticasone propionate 1 spray INTRANASAL BID 10/28/17 03/28/19 History folic acid 400 mcg PO DAILY 10/28/17 10/28/17 History furosemide [Lasix] 60 mg PO BID 10/28/17 10/28/17 History losartan 12.5 mg PO DAILY 10/28/17 03/28/19 History albuterol sulfate [Ventolin HFA] 2 puff INH RTQ4HR PRN #1 g 10/31/17 Rx fluoxetine 40 mg PO DAILY 07/24/18 03/28/19 History mirtazapine 07/24/18 History oxycodone 5 mg PO Q4-6H PRN #7 tab 07/24/18 Rx acetaminophen-codeine 1 tab PO BID PRN #5 tab 12/16/18 Rx allopurinol 150 mg PO DAILY 03/28/19 03/28/19 History colchicine 0.3 mg PO DAILY PRN 03/28/19 03/28/19 History metoprolol succinate 50 mg PO BID 03/28/19 03/28/19 History warfarin 03/28/19 History Allergies Allergy/AdvReac Type Severity Reaction Status Date / Time shellfish derived Allergy Mild HIVES Verified 03/28/19 17:23 [SHELLFISH DERIVED] azithromycin [AZITHROMYCIN] Allergy Unknown SWOLLEN Verified 03/28/19 17:23 LIPS diltiazem [From CARDIZEM] Allergy Unknown HEART BLOCK Verified 03/28/19 17:23 trazodone [TRAZODONE] Allergy Unknown STOP Verified 03/28/19 17:23 BREATHING doxycycline [DOXYCYCLINE] AdvReac Mild STOMACH Verified 03/28/19 17:23 UPSET Review of Systems Review of Systems Narrative: Patient has no chest pain or shortness of breath or cough. No fever chills night sweats. No new problems with her heart other than what is described above. She did take her beta joslyn. No nausea or vomiting. She had a history of having a large amount of bleeding in her renal system and actually had to undergo will repeat placement of a valve to get it to stop. No seizures or blackouts. Patient has depression but not anxiety. She takes medication for it. Exam Vital Signs (past 8 hours): - 02/15/20 11:09 02/15/20 11:29 02/15/20 11:50 Temperature 100.1 F H Pulse Rate 77 72 Respiratory Rate 16 Blood Pressure 141/67 H Pulse Oximetry 96 95 02/15/20 11:53 02/15/20 12:00 02/15/20 12:01 Temperature Pulse Rate 71 70 70 Respiratory Rate Blood Pressure 115/74 115/55 L Pulse Oximetry 95 96 95 02/15/20 12:30 02/15/20 13:00 02/15/20 13:30 Temperature Pulse Rate 68 69 71 Respiratory Rate Blood Pressure 109/63 117/57 L Pulse Oximetry 95 96 97 02/15/20 13:31 02/15/20 14:00 02/15/20 14:04 Temperature Pulse Rate 70 65 66 Respiratory Rate Blood Pressure 102/55 L 98/51 L 98/54 L Pulse Oximetry 98 98 97 02/15/20 14:30 02/15/20 14:31 02/15/20 15:00 Temperature Pulse Rate 79 80 72 Respiratory Rate Blood Pressure 106/57 L 105/67 Pulse Oximetry 100 100 98 02/15/20 15:30 02/15/20 15:31 Temperature Pulse Rate 68 68 Respiratory Rate Blood Pressure 109/51 L Pulse Oximetry 96 96 Oxygen Delivery Method Room Air Narrative Exam Narrative: Cooperative in no apparent distress. Eyes are nonicteric. Pupils equal round reactive to light. Conjunctivae are pink. Lungs are clear to auscultation. No rales or rhonchi. Equal percussion. No bruit in the neck. Her abdomen is protuberant but soft. There is no tenderness or guarding. Liver and spleen are not palpably enlarged. Patient is alert and oriented. Very well-versed in her medical history. Speech rate and content are appropriate. Objective Labs Result Diagrams: 02/15/20 11:15 02/15/20 11:15 Labs: Laboratory Results - last 24 hr 02/15/20 02/15/20 02/15/20 11:15 11:15 11:15 WBC 7.6 RBC 4.34 Hgb 12.3 Hct 38.3 MCV 88.3 MCH 28.3 MCHC 32.0 RDW 14.0 Plt Count 259 Neut % (Auto) 78.7 H Lymph % (Auto) 11.8 L [place] % (Auto) 8.7 Eos % (Auto) 0.5 L Baso % (Auto) 0.3 Neut # (Auto) 6000 Lymph # (Auto) 900 L [place] # (Auto) 700 Eos # (Auto) 0 Baso # (Auto) 0 PT 13.0 H INR 1.1 APTT 32 D Sodium 138 Potassium 4.1 Chloride 104 Carbon Dioxide 25 BUN 28 H Creatinine 2.02 H Estimated GFR 24.5 L BUN/Creatinine Ratio 13.9 Glucose 115 H Lactate Calcium 8.9 Total Bilirubin 0.8 AST 56 H ALT 56 H Alkaline Phosphatase 121 Total Protein 7.6 Albumin 4.3 Globulin 3.3 Albumin/Globulin Ratio 1.3 02/15/20 02/15/20 11:15 14:34 WBC RBC Hgb Hct MCV MCH MCHC RDW Plt Count Neut % (Auto) Lymph % (Auto) [place] % (Auto) Eos % (Auto) Baso % (Auto) Neut # (Auto) Lymph # (Auto) [place] # (Auto) Eos # (Auto) Baso # (Auto) PT INR APTT Sodium Potassium Chloride Carbon Dioxide BUN Creatinine Estimated GFR BUN/Creatinine Ratio Glucose Lactate 2.5 H 3.1 H Calcium Total Bilirubin AST ALT Alkaline Phosphatase Total Protein Albumin Globulin Albumin/Globulin Ratio Assessment & Plan Assessment & Plan narrative: Patient with a lower GI bleed most likely related to her procedure yesterday at the [place]. I have discussed a repeat colonoscopy with her we will do this unprepped. Material she is passing is basically blood with clots and otherwise clear. Hopefully it is that with the whole where under colon. Risks of bleeding and perforation were discussed with her. She appears to understand wishes to proceed. Reviewed her report which included put color pictures of the areas were biopsies were taken and the clip was applied
--- NOTE | 2020-02-15 17:46 | SUR.PHASEI ---
Patient A\O x 4. Denies pain.
--- NOTE | 2020-02-15 17:48 | SUR.PHASEI ---
Lab at bedside for type and cross.
--- NOTE | 2020-02-15 17:59 | PM.OP.ENDO ---
Operative Date/Time/Diagnoses Date of procedure: 02/15/20 Time of procedure: 17:51 Pre-op diagnosis: GI bleed as a complication of colonoscopy done elsewhere Post-op diagnosis: same (Entire colon filled with clot and some stool. No active bleeding seen.) Procedure & Clinicians Study performed: Colonoscopy Same procedure as scheduled: Yes Indications: Patient with multiple bloody bowel movements after colonoscopy done at another institution. Surgeon: Orlando Levine Procedure Notes SCOAP/Timeout: Performed Procedure in detail: The patient was placed in the left lateral decubitus position and underwent IV sedation directed by the surgeon consisting of fentanyl and Versed. Digital exam was remarkable for maroon material on the finger. The scope was inserted and advanced through the rectum into the sigmoid, descending, transverse, and ascending colon. We had to maneuver around forms stool. Everything was covered in maroon clot. I did identify the clip in the sigmoid going in. It did not appear to have any bleeding in the region. I also noted some diverticulosis here and there. All of the usual landmarks for locating were was were obscured by maroon clotted blood and some stool. I reached a point where I could go no further in the colon. I could not identify the usual landmarks of the cecum but on palpating the patient's right lower quadrant was clear that I was in that area. I believe that I reached the cecum and irrigated as best I could the clotted material within it. I could see no active bleeding anywhere in it. The scope was gradually brought out. I copiously irrigated as I withdrew the scope. I suctioned the material as I came out. There were segments where stool precluded my seeing those parts of the wall. The stool was brown but did have old bloody material on its surface in places. I could identify no bleeding sites. I carefully reexamined the area the clip again. I could not see any blood oozing from the region. The scope ultimately was retroflexed in the rectum. The appearance was difficult to completely evaluate due to the amount of clot in the area. I irrigated as much as possible and could not see any evidence of bleeding in the region.. The scope was removed and the patient tolerated the procedure well. This was an unprepped colonoscopy. An anesthesiologist was involved to provide deep sedation as patient has not tolerated conscious sedation in the past. Also, because of the emergent nature and her significant medical issues including valvular cardiac disease it was felt prudent to have an anesthesia provider available for the sedation. Scope withdrawal time: Not applicable Sedation minutes: 0 (Deep anesthesia provided by the anesthesiologist) Findings: diverticulosis Specimen(s): none sent Complications: none Post-procedure Recommendations: Other recommendation (Bring in for observation and serial hematocrits. Possible transfusion) Disposition: PACU
[2020-02-15] MEDS: LACTATED RINGERS 1,000 ML 42 ML IV (18:05)
--- NOTE | 2020-02-15 18:08 | SUR.PHASEI ---
Report given to
[2020-02-15 18:27] LABS: Add Manual Diff / Slide Review NO; Basophils Absolute Auto 0 /uL (0-100); Basophils Percent Auto 0.2 % (0-2); Eosinophils Absolute Auto 0 /uL (0-450); Eosinophils Percent Auto 0.4 % (2-4); Hematocrit 33.5 % (36-46); Hemoglobin 10.9 g/dL (12.0-16.0); Lymphocytes Absolute Auto 1800 /uL (1100-4500); Lymphocytes Percent Auto 21.5 % (25-40); Mean Corpuscular HGB Conc 32.5 % (30-36); Mean Corpuscular Hemoglobin 28.6 PG (26-34); Mean Corpuscular Volume 87.9 fL (80-100); Monocytes Absolute Auto 800 /uL (0-900); Monocytes Percent Auto 10.2 % (3-14); Neutrophils Absolute Auto 5600 /uL (1500-7000); Neutrophils Percent Auto 67.7 % (50-75); Platelet Count 231 X10^3/uL (150-400); Red Blood Cell Count 3.81 X10^6/uL (4.0-5.2); Red Cell Distribution Width 14.4 % (11.6-14.8); White Blood Cell Count 8.2 X10^3/uL (4.5-11.0)
--- NOTE | 2020-02-15 19:00 | PC.ADMIT ---
[email or web address] [facility] 46 Admission Note: The patient,Joselyn Prado,69 y/o, was given written information regarding hospital policies, unit procedures and contact persons. Patient's smoking status: Never smoker. Pt arrived from ED to room 215 Via stretcher. VSS. Oriented to room and call system. Pt verbalized she will call for needs. Vital Signs - 8 hr 02/15/20 11:09 02/15/20 11:29 02/15/20 11:50 Temperature 100.1 F H Pulse Rate 77 72 Respiratory Rate 16 Blood Pressure 141/67 H Pulse Oximetry 96 95 02/15/20 11:53 02/15/20 12:00 02/15/20 12:01 Temperature Pulse Rate 71 70 70 Respiratory Rate Blood Pressure 115/74 115/55 L Pulse Oximetry 95 96 95 02/15/20 12:30 02/15/20 13:00 02/15/20 13:30 Temperature Pulse Rate 68 69 71 Respiratory Rate Blood Pressure 109/63 117/57 L Pulse Oximetry 95 96 97 02/15/20 13:31 02/15/20 14:00 02/15/20 14:04 Temperature Pulse Rate 70 65 66 Respiratory Rate Blood Pressure 102/55 L 98/51 L 98/54 L Pulse Oximetry 98 98 97 02/15/20 14:30 02/15/20 14:31 02/15/20 15:00 Temperature Pulse Rate 79 80 72 Respiratory Rate Blood Pressure 106/57 L 105/67 Pulse Oximetry 100 100 98 02/15/20 15:30 02/15/20 15:31 02/15/20 16:00 Temperature Pulse Rate 68 68 67 Respiratory Rate Blood Pressure 109/51 L 97/52 L Pulse Oximetry 96 96 96 02/15/20 16:30 02/15/20 16:57 02/15/20 17:36 Temperature 97.9 F 97.7 F Pulse Rate 70 73 81 Respiratory Rate 14 17 Blood Pressure 111/59 L 133/67 89/45 L Pulse Oximetry 96 97 91 02/15/20 17:40 02/15/20 17:45 02/15/20 17:56 Temperature Pulse Rate 84 84 83 Respiratory Rate 12 12 18 Blood Pressure 108/54 L 108/52 L 125/63 Pulse Oximetry 94 97 99 02/15/20 18:00 02/15/20 18:15 02/15/20 18:45 Temperature 97.2 F L 97.3 F L Pulse Rate 83 84 81 Respiratory Rate 20 16 17 Blood Pressure 122/65 145/57 H 115/92 H Pulse Oximetry 99 98 97
[2020-02-15] MEDS: LACTATED RINGERS 1,000 ML 100 ML IV (20:00)
[2020-02-15] MEDS: ATORVASTATIN 20 MG TABLET 40 MG PO (21:19)
[2020-02-15] MEDS: BUSPIRONE 15 MG TABLET PO (21:20)
[2020-02-15] MEDS: PANTOPRAZOLE 40 MG TABLET PO (21:20)
[2020-02-15] MEDS: METOPROLOL IR 50 MG TABLET 75 MG PO (21:20)
[2020-02-15] MEDS: ALPRAZolam 0.5 MG TABLET PO (21:24)
[2020-02-16] VITALS (7 sets, daily range): BP systolic 93–136; BP diastolic 47–68; PULSE 70–77; RESP 16–18; TEMP 35.6–36.8; O2SAT 97–100
[2020-02-16 05:45] LABS: Add Manual Diff / Slide Review NO; Basophils Absolute Auto 0 /uL (0-100); Basophils Percent Auto 0.5 % (0-2); Eosinophils Absolute Auto 100 /uL (0-450); Hematocrit 30.7 % (36-46); Lymphocytes Absolute Auto 1300 /uL (1100-4500); Lymphocytes Percent Auto 17.4 % (25-40); Mean Corpuscular HGB Conc 32.5 % (30-36); Mean Corpuscular Hemoglobin 28.8 PG (26-34); Mean Corpuscular Volume 88.6 fL (80-100); Monocytes Absolute Auto 800 /uL (0-900); Monocytes Percent Auto 10.7 % (3-14); Neutrophils Absolute Auto 5100 /uL (1500-7000); Neutrophils Percent Auto 70.4 % (50-75); Platelet Count 211 X10^3/uL (150-400); Red Blood Cell Count 3.47 X10^6/uL (4.0-5.2); Red Cell Distribution Width 14.5 % (11.6-14.8); White Blood Cell Count 7.3 X10^3/uL (4.5-11.0)
[2020-02-16] MEDS: PANTOPRAZOLE 40 MG TABLET PO ×2 (06:26→20:39)
[2020-02-16] MEDS: LACTATED RINGERS 1,000 ML 100 ML IV (06:33)
[2020-02-16] MEDS: BUSPIRONE 15 MG TABLET PO ×2 (09:50→20:37)
[2020-02-16] MEDS: FLUoxetine 20 MG CAPSULE 60 MG PO (09:51)
[2020-02-16] MEDS: METOPROLOL IR 50 MG TABLET 75 MG PO ×2 (09:51→20:37)
[2020-02-16] MEDS: LOSARTAN 25 MG TABLET 12.5 MG PO (09:53)
[2020-02-16] MEDS: FUROSEMIDE 40 MG TABLET PO (10:03)
--- NOTE | 2020-02-16 11:28 | P.PN_ITS ---
Subjective Subjective Date Patient Seen: 02/16/20 Time Patient Seen: 11:28 Interval history: No blood per rectum. No abdominal pain. No acute overnight events. Exam Vital Signs (past 8 hours): - 02/16/20 04:56 02/16/20 08:00 Temperature 96.6 F L 98.3 F Pulse Rate 70 71 Respiratory Rate 16 16 Blood Pressure 108/56 L 116/57 L Pulse Oximetry 98 99 Oxygen Delivery Method Room Air Oxygen Flow Rate 0 Narrative Exam Narrative: General adult female alert oriented no acute distress Abdomen soft nontender nondistended. Objective Labs Result Diagrams: 02/16/20 05:00 02/15/20 11:15 Labs: Laboratory Results - last 24 hr 02/15/20 02/15/20 02/15/20 11:15 11:15 11:15 WBC 7.6 RBC 4.34 Hgb 12.3 Hct 38.3 MCV 88.3 MCH 28.3 MCHC 32.0 RDW 14.0 Plt Count 259 Neut % (Auto) 78.7 H Lymph % (Auto) 11.8 L [place] % (Auto) 8.7 Eos % (Auto) 0.5 L Baso % (Auto) 0.3 Neut # (Auto) 6000 Lymph # (Auto) 900 L [place] # (Auto) 700 Eos # (Auto) 0 Baso # (Auto) 0 PT 13.0 H INR 1.1 APTT 32 D Sodium 138 Potassium 4.1 Chloride 104 Carbon Dioxide 25 BUN 28 H Creatinine 2.02 H Estimated GFR 24.5 L BUN/Creatinine Ratio 13.9 Glucose 115 H Lactate Calcium 8.9 Total Bilirubin 0.8 AST 56 H ALT 56 H Alkaline Phosphatase 121 Total Protein 7.6 Albumin 4.3 Globulin 3.3 Albumin/Globulin Ratio 1.3 Blood Type Antibody Screen Crossmatch 02/15/20 02/15/20 02/15/20 11:15 14:34 17:54 WBC RBC Hgb Hct MCV MCH MCHC RDW Plt Count Neut % (Auto) Lymph % (Auto) [place] % (Auto) Eos % (Auto) Baso % (Auto) Neut # (Auto) Lymph # (Auto) [place] # (Auto) Eos # (Auto) Baso # (Auto) PT INR APTT Sodium Potassium Chloride Carbon Dioxide BUN Creatinine Estimated GFR BUN/Creatinine Ratio Glucose Lactate 2.5 H 3.1 H Calcium Total Bilirubin AST ALT Alkaline Phosphatase Total Protein Albumin Globulin Albumin/Globulin Ratio Blood Type A Positive Antibody Screen Negative Crossmatch See Detail 02/15/20 02/16/20 17:54 05:00 WBC 8.2 7.3 RBC 3.81 L 3.47 L Hgb 10.9 L 10.0 L Hct 33.5 L 30.7 L MCV 87.9 88.6 MCH 28.6 28.8 MCHC 32.5 32.5 RDW 14.4 14.5 Plt Count 231 211 Neut % (Auto) 67.7 70.4 Lymph % (Auto) 21.5 L 17.4 L [place] % (Auto) 10.2 10.7 Eos % (Auto) 0.4 L 1.0 L Baso % (Auto) 0.2 0.5 Neut # (Auto) 5600 5100 Lymph # (Auto) 1800 1300 [place] # (Auto) 800 800 Eos # (Auto) 0 100 Baso # (Auto) 0 0 PT INR APTT Sodium Potassium Chloride Carbon Dioxide BUN Creatinine Estimated GFR BUN/Creatinine Ratio Glucose Lactate Calcium Total Bilirubin AST ALT Alkaline Phosphatase Total Protein Albumin Globulin Albumin/Globulin Ratio Blood Type Antibody Screen Crossmatch Assessment & Plan Assessment & Plan narrative: 69-year-old female admitted with a GI bleed following a colonoscopy with polypectomy at an outside institution. She underwent a sigmoidoscopy yesterday which demonstrated no evidence of active hem orrhage. No blood per rectum overnight. Her preference is to remain in the hospital tonight and if she continues to have no of evidence of bleeding we will discharge Monday morning. Will resume warfarin and Lovenox starting 02/16. CBC in a.m.
[2020-02-16] MEDS: TRAMADOL 50 MG TABLET PO (15:44)
--- NOTE | 2020-02-16 16:07 | CM.DANOTE ---
Discharge Planning/Care Management DCP: assessment: case received, EMR reviewed and met with pt. Introduced self and role. Pt is a 69 year old female who admitted last evening to care of [facility]: Dr. Fong for bleeding after a colonoscopy that was done at [facility]. He took her for colonoscopy last evening for colon that was filled with large maroon clot and stool. Payer: Medicare and [facility] PCP: Mitchel Quiroz Pt confirms that she discussed her case today with Dr. Levine and that he will continue to observe her tonight with a d/c planned for tomorrow if she remains stable. Pt confirms she lives with her son Ezra and his family and the family will pick her up at d/c. CM Discharge Assessment Start: 02/16/20 16:06 Freq: Status: Active Protocol: Document 02/16/20 16:06 ITV (Rec: 02/16/20 16:07 ITV [id number]) Discharge Planning Assessment Advance Directives? Yes Advance Directives on File No History Provided By Patient,Medical Record Household Members family,children Independent with ADL's Yes Is patient alert and oriented? Yes Review Status In Process
--- NOTE | 2020-02-16 18:11 | PC.NURSE ---
Pt is A and O x 4, VSS. Pt has R knee pain she rated at 8/10 and got good relief from 50 mg tramadol po. She is S1, S2, LS clear. She is eating and drinking and able to sleep. Her last BM was 02/15/2020 in our ER. +BT, states she is passing gas.
[2020-02-16] MEDS: ALPRAZolam 0.5 MG TABLET PO (20:37)
[2020-02-16] MEDS: ATORVASTATIN 20 MG TABLET 40 MG PO (20:37)
[2020-02-17] VITALS: BP 96/52; PULSE 69; RESP 16; TEMP 36.5; O2SAT 96
[2020-02-17 05:16] LABS: Add Manual Diff / Slide Review NO; Basophils Absolute Auto 0 /uL (0-100); Basophils Percent Auto 0.4 % (0-2); Eosinophils Absolute Auto 200 /uL (0-450); Eosinophils Percent Auto 2.5 % (2-4); Hematocrit 29.5 % (36-46); Hemoglobin 9.5 g/dL (12.0-16.0); Lymphocytes Absolute Auto 1400 /uL (1100-4500); Lymphocytes Percent Auto 21.2 % (25-40); Mean Corpuscular HGB Conc 32.4 % (30-36); Mean Corpuscular Hemoglobin 28.7 PG (26-34); Mean Corpuscular Volume 88.5 fL (80-100); Monocytes Absolute Auto 700 /uL (0-900); Monocytes Percent Auto 10.7 % (3-14); Neutrophils Absolute Auto 4400 /uL (1500-7000); Neutrophils Percent Auto 65.2 % (50-75); Platelet Count 207 X10^3/uL (150-400); Red Blood Cell Count 3.33 X10^6/uL (4.0-5.2); Red Cell Distribution Width 14.1 % (11.6-14.8); White Blood Cell Count 6.7 X10^3/uL (4.5-11.0)
[2020-02-17 05:41] VITALS: BP 115/69; PULSE 64; RESP 16; TEMP 36.4; O2SAT 98
[2020-02-17] MEDS: PANTOPRAZOLE 40 MG TABLET PO (06:05)
[2020-02-17 08:33] VITALS: BP 119/64; PULSE 72; RESP 16; TEMP 36.4; O2SAT 97
[2020-02-17] MEDS: BUSPIRONE 15 MG TABLET PO (08:33)
[2020-02-17] MEDS: LOSARTAN 25 MG TABLET 12.5 MG PO (08:33)
[2020-02-17] MEDS: METOPROLOL IR 50 MG TABLET 75 MG PO (08:33)
[2020-02-17] MEDS: FLUoxetine 20 MG CAPSULE 60 MG PO (08:33)
[2020-02-17] MEDS: FUROSEMIDE 40 MG TABLET PO (08:33)
[2020-02-17] MEDS: SODIUM CHLORIDE 0.9% FLUSH 10 ML IV (08:34)
--- NOTE | 2020-02-17 11:23 | PC.NURSE ---
Patient alert, oriented denies pain. Patient had large loose stool, guiac negative, tolerating diet.
[2020-02-17 13:44] VITALS: BP 97/57; PULSE 68; RESP 15; TEMP 36.2; O2SAT 97
--- NOTE | 2020-02-17 13:49 | P.DS_ITS ---
History of Present Illness History of Present Illness Chief complaint: Rectal Bleeding Post Colonoscopy Narrative: The patient is a woman who had a colonoscopy yesterday at the [place]. She apparently had multiple small polyps removed. One about an 8 mm polyp had a clip applied to it. The patient is normally anticoagulated with Coumadin due to atrial fibrillation. 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 The valves are bovine. She presented to our emergency room with this history of bleeding after her colonoscopy. She said she felt some rumblings last night and woke up this morning with blood in her bed. She has had multiple bloody bowel movements including to since she has been here. Material IC is dark maroon. There is clot within it. She denies any abdominal pain. Noted at the time of her colonoscopy also were diverticuli. She last took Lovenox last night. She was on 80 mg twice a day. She has not taken her Coumadin yet. Her INR was 1.3 in the emergency room. Last p.o. was last night of solid food. This morning she took some of her medications with a sip of water. This did not include any anticoagulants and she did not take Lovenox this morning. Of note she reports that she has had colonoscopies with Versed and fentanyl and they do not sedate her. This last exam was done with propofol. Discharge Providers Provider Date of admission: 02/15/20 16:53 Discharge Date: 02/17/20 Primary care physician: Mitchel Quiroz DO Discharge provider: Orlando Levine MD Summary Hospital Course Discharge Diagnosis: Acute blood loss anemia secondary to complication from a screening colonoscopy performed elsewhere Anxiety treated with medication. Chronic. 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 Mitral valve reported by patient to be leaking. Chronic atrial fibrillation rate controlled History of coronary artery disease chronic Hypertension chronic Chronic renal insufficiency/failure with a creatinine of 2 and a GFR of 25 Obesity chronic with a BMI of 34 Hospital Course: Patient is anticoagulated area agents were stopped. Her other medication was continued. She was taken emergently for an unprepped scope from the emergency room. This showed blood throughout the colon. It was all old maroon blood and clots. There was some formed brown stool. No evidence of ongoing bleeding. The patient had serial hematocrits and her hematocrit essentially stabilized at approximately 30. One she cleared her old blood that was in her colon she had no further blood in her stool. The source of her bleeding was not identified but it was presumed to be 1 of the polypectomy sites. The patient's diet was advanced and she was tolerating a general diet. She is discharged and told to start her Coumadin and not give herself Lovenox for now. She should follow up with her family doctor to check her coags later this week. Status at Discharge Cognitive/behavioral status at discharge: oriented Functional status at discharge: independent ambulation Overall status at discharge: patient is back to baseline Exam Vital Signs (past 8 hours): - 02/17/20 08:33 02/17/20 13:44 Temperature 97.5 F L 97.2 F L Pulse Rate 72 68 Respiratory Rate 16 15 Blood Pressure 119/64 97/57 L Pulse Oximetry 97 97 Oxygen Delivery Method Room Air Oxygen Flow Rate 0 Narrative Exam Narrative: Abdomen is soft nontender without mass. Protuberant. Patient is alert and oriented. Objective Labs Result Diagrams: 02/17/20 05:07 02/15/20 11:15 Labs: Laboratory Results - last 24 hr 02/17/20 05:07 WBC 6.7 RBC 3.33 L Hgb 9.5 L Hct 29.5 L MCV 88.5 MCH 28.7 MCHC 32.4 RDW 14.1 Plt Count 207 Neut % (Auto) 65.2 Lymph % (Auto) 21.2 L [place] % (Auto) 10.7 Eos % (Auto) 2.5 Baso % (Auto) 0.4 Neut # (Auto) 4400 Lymph # (Auto) 1400 [place] # (Auto) 700 Eos # (Auto) 200 Baso # (Auto) 0 Discharge Assessment & Plan Assessment and Plan Assessment: Follow-up with primary care provider. Return to emergency room if bleeding recurs. Discharge Plan Discharge Plan Patient Disposition: Home Discharge comment: Your bleeding seems to have stopped. You should resume her Coumadin tonight. Do not take care Lovenox. Have your Coumadin level checked on Monday her family doctor's office. If your bleeding starts again please go to the ER. Discharge orders & Medications Prescriptions: New ferrous sulfate 325 mg (65 mg iron) tablet 325 mg PO DAILY Qty: 60 RF: 0 Continued pantoprazole [Protonix] 40 MG tablet,delayed release (DR/EC) 40 mg PO BID Qty: 0 RF: 0 amiodarone 200 MG tablet 200 mg PO QDAY Qty: 0 RF: 0 atorvastatin 40 MG tablet 40 mg PO BEDTIME Qty: 0 RF: 0 aspirin 81 MG tablet,delayed release (DR/EC) 81 mg PO QDAY Qty: 0 RF: 0 warfarin [Coumadin] 5 MG tablet 2.5 mg PO QDAY Qty: 0 RF: 0 buspirone 15 MG tablet 15 mg PO BID Qty: 0 RF: 0 cyanocobalamin (vitamin B-12) [Vitamin B-12] 1,000 mcg Tablet 1,000 mcg PO DAILY RF: 0 folic acid 400 mcg Tablet 400 mcg PO DAILY RF: 0 acetaminophen [Acetaminophen Extra Strength] 500 mg Tablet 1,000 mg PO Q6H PRN (Reason: Pain (Scale Score 1-3)) RF: 0 alprazolam 0.5 mg Tablet 0.5 mg PO DAILY PRN (Reason: Anxiety) RF: 0 losartan 25 mg Tablet 12.5 mg PO DAILY RF: 0 furosemide [Lasix] 20 mg Tablet 40 mg PO BID RF: 0 fluticasone propionate 50 mcg/actuation [place],Suspension 1 spray INTRANASAL BID PRN (Reason: Nasal Congestion) RF: 0 albuterol sulfate [Ventolin HFA] 90 mcg/actuation Hfa Aerosol Inhaler 2 puff INH RTQ4HR PRN (Reason: Shortness Of Breath) Qty: 1 RF: 0 fluoxetine 40 mg capsule 60 mg PO DAILY RF: 0 allopurinol 300 mg tablet 150 mg PO DAILY RF: 0 metoprolol succinate 50 mg tablet extended release 24 hr 75 mg PO BID RF: 0 warfarin 5 mg tablet 5 mg PO WEEKLY RF: 0 Follow up/Referrals: Mitchel Quiroz DO [Primary Care Provider] - Diet/Activity/Treatments Diet: Diet as Tolerated Discharge Data Primary Care Provider: Mitchel Quiroz Attending Provider: Orlando Levine Admkeke Date/Time: 02/15/20 16:53
--- NOTE | 2020-02-17 18:04 | PC.NURSE ---
late entry: no abdominal pain. no chest pain. no bloody stool. IV dcd. discharge instructions given to patient.
== END 2020-02-17 17:44 | disposition home or self-care (01) ==
LOC: ED 16:34 → AC 02-16 11:48
PROVIDERS: Surgery; Admitting Provider Specialist; Emergency Provider Emergency Medicine; Family Provider Family Medicine; PCP Family Medicine; Referring Provider Emergency Medicine; Visit Provider Specialist
PROC: 0DJD8ZZ Inspection of Lower Intestinal Tract, Via Natural or Artificial Opening Endoscopic (ICD-10-PCS; CPT 45378; principal; 2020-02-15 16:15)
DX: K91.89 Other postprocedural complications and disorders of digestive system (principal); Z95.1 Presence of aortocoronary bypass graft; Z95.0 Presence of cardiac pacemaker; D58.9 Hereditary hemolytic anemia, unspecified; E78.5 Hyperlipidemia, unspecified; F32.9 Major depressive disorder, single episode, unspecified; I10 Essential (primary) hypertension; I25.10 Atherosclerotic heart disease of native coronary artery without angina pectoris; F41.9 Anxiety disorder, unspecified; M1A.9XX0 Chronic gout, unspecified, without tophus (tophi); E66.9 Obesity, unspecified; Z68.34 Body mass index [BMI] 34.0-34.9, adult; I48.20 Chronic atrial fibrillation, unspecified; D62 Acute posthemorrhagic anemia
CPT/HCPCS: 45378; 36415; 80053; 83605; 85025; 85610; 85730; 86850; 86900; 86901; 93005; 93010; 96360; 96361; 99217; 99219; 99224; 99284; G0378; J2250; J2704

== ENCOUNTER 2021-03-05 16:05 | Emergency (ER) | payer MEDICARE, OTHER, SELFPAY ==
[2020-02-15 18:02] VITALS: BMI 34.0
[2021-03-05 16:10] VITALS: BP 139/66; PULSE 80; RESP 18; TEMP 37.3; O2SAT 94; BMI 32.4
--- NOTE | 2021-03-05 16:11 | DI.RAD.S_ITS ---
PROCEDURE: XR CHEST 1V INDICATIONS: chest pain TECHNIQUE: One view of the chest was acquired. COMPARISON: [facility], CR, XR CHEST 2V, 11/20/2018, 23:26. [facility], CR, XR CHEST 1V, 01/30/2018, 22:29. FINDINGS: Surgical changes and devices: Sternotomy and a prosthetic aortic valve. Lungs and pleura: Bilateral interstitial prominence likely secondary to mild pulmonary edema secondary to CHF. Pleural thickening or small loculated pleural fluid in the right minor fissure. No pneumothorax. Mediastinum: Mediastinal contours appear normal. Heart size is moderately increased. Bones and chest wall: No suspicious bony lesions. Overlying soft tissues appear unremarkable. IMPRESSION: Mild CHF. Dictated by: Sammi Gill M.D. on 03/05/2021 at 16:54 Approved by: Sammi Gill M.D. on 03/05/2021 at 16:57
[2021-03-05 16:14] VITALS: PULSE 80; RESP 24; O2SAT 97
[2021-03-05 16:16] VITALS: BP 139/66; PULSE 80; RESP 22; O2SAT 97
[2021-03-05 16:30] VITALS: BP 128/65; PULSE 68; RESP 22; O2SAT 97
[2021-03-05 16:39] LABS: Add Manual Diff / Slide Review NO; Basophils Absolute Auto 100 /uL (0-100); Eosinophils Absolute Auto 100 /uL (0-450); Eosinophils Percent Auto 2.2 % (2-4); Hematocrit 41.5 % (36-46); Hemoglobin 13.5 g/dL (12.0-16.0); Lymphocytes Absolute Auto 1500 /uL (1100-4500); Lymphocytes Percent Auto 22.3 % (25-40); Mean Corpuscular HGB Conc 32.6 % (30-36); Mean Corpuscular Hemoglobin 28.1 PG (26-34); Mean Corpuscular Volume 86.2 fL (80-100); Monocytes Absolute Auto 700 /uL (0-900); Monocytes Percent Auto 10.1 % (3-14); Neutrophils Absolute Auto 4300 /uL (1500-7000); Neutrophils Percent Auto 64.4 % (50-75); Platelet Count 304 X10^3/uL (150-400); Red Blood Cell Count 4.81 X10^6/uL (4.0-5.2); Red Cell Distribution Width 14.7 % (11.6-14.8); White Blood Cell Count 6.6 X10^3/uL (4.5-11.0)
[2021-03-05 16:49] LABS: Alanine Aminotransferase 29 IU/L (<35); Albumin 4.5 g/dL (3.5-5.0); Albumin Globulin Ratio 1.2 (1.0-2.8); Alkaline Phosphatase 124 U/L (38-126); Aspartate Aminotransferase 36 IU/L (14-36); BUN Creatinine Ratio 19.2 (6-22); Bilirubin Total 0.6 mg/dL (0.2-1.3); Blood Urea Nitrogen 34 mg/dL (7-17); Calcium 9.2 mg/dL (8.4-10.2); Carbon Dioxide 24 mmol/L (22-32); Chloride 106 mmol/L (98-107); Creatine Kinase 71 U/L (30-135); Estimated Glomerular Filt Rate 28.4 mL/min (>60); Globulin 3.8 g/dL (1.7-4.1); Glucose 100 mg/dL (80-110); Lipase 184 U/L (23-300); Sodium 139 mmol/L (137-145); Total Protein 8.3 g/dL (6.3-8.2)
[2021-03-05 16:50] LABS: HEMOLYSIS 62 (0-50); Potassium 4.7 mmol/L (3.4-5.1)
[2021-03-05 17:00] VITALS: BP 126/73; PULSE 66; RESP 28; O2SAT 98
[2021-03-05 17:00] LABS: Troponin I < 0.012 ng/mL (0.01-0.034)
[2021-03-05 17:30] VITALS: BP 115/67; PULSE 66; RESP 20; O2SAT 98
[2021-03-05 17:36] LABS: COVID19 -Nasal RAPID Negative (Negative)
--- NOTE | 2021-03-05 18:20 | ED.WEAKNESS ---
HPI - Weakness <Haritha Boswell [facility] - Last Filed: 03/05/21 18:53> General Chief complaint: Weakness Stated complaint: WEAKNESS VERY FAINT Time Seen by Provider: 03/05/21 16:35 Source: patient Mode of arrival: Ambulatory Limitations: no limitations History of Present Illness HPI Narrative: 70-year-old female with a history of CABG, mitral and aortic valve replacements, pulmonary hypertension, CKD stage 4, and hemolytic anemia in 2017, presents to the ED today for 1 week of fatigue and feeling more tired than usual. She reports she has had 2 migraines this week, she does have a history of migraines and denies that these were any different than usual. She denies any fever, dizziness, chest pain, palpitations, shortness of breath, nausea or vomiting, or weakness in her extremities. She does help care for her grandchildren, and she reports that she has been wanting to take a nap when they laid down each day this week. She reports that she has not had much of an appetite although she has been able to eat and drink like usual with a normal amount of urine output for her. She does have exertional shortness of breath at baseline and this has not changed this week either. She has no numbness or tingling, and is able to ambulate without feeling lightheaded. She reports that her metoprolol was recently increased to 100 mg b.i.d. from 75mg, and her baseline creatinine is 1.9. Related Data Home Medications Medication Instructions Recorded Confirmed amiodarone 200 mg tablet 200 mg PO QDAY #0 11/26/16 02/15/20 aspirin 81 mg tablet,delayed 81 mg PO QDAY #0 11/26/16 02/15/20 release atorvastatin 40 mg tablet 40 mg PO BEDTIME #0 11/26/16 02/15/20 buspirone 15 mg tablet 15 mg PO BID #0 11/26/16 02/15/20 pantoprazole 40 mg tablet,delayed 40 mg PO BID #0 11/26/16 02/15/20 release (Protonix) warfarin 5 mg tablet (Coumadin) 2.5 mg PO QDAY #0 11/26/16 02/15/20 acetaminophen 500 mg tablet 1,000 mg PO Q6H PRN 10/28/17 02/15/20 (Acetaminophen Extra Strength) alprazolam 0.5 mg tablet 0.5 mg PO DAILY PRN 10/28/17 02/15/20 cyanocobalamin (vitamin B-12) 1,000 mcg PO DAILY 10/28/17 02/15/20 1,000 mcg tablet (Vitamin B-12) fluticasone propionate 50 1 spray INTRANASAL BID PRN 10/28/17 02/15/20 mcg/actuation nasal spray,suspension folic acid 400 mcg tablet 400 mcg PO DAILY 10/28/17 02/15/20 furosemide 20 mg tablet (Lasix) 40 mg PO BID 10/28/17 02/15/20 losartan 25 mg tablet 12.5 mg PO DAILY 10/28/17 02/15/20 fluoxetine 40 mg capsule 60 mg PO DAILY 07/24/18 02/15/20 allopurinol 300 mg tablet 150 mg PO DAILY 03/28/19 02/15/20 metoprolol succinate 50 mg 75 mg PO BID 03/28/19 02/15/20 tablet,extended release 24 hr warfarin 5 mg tablet 5 mg PO WEEKLY 03/28/19 02/15/20 Previous Rx's Medication Instructions Recorded albuterol sulfate 90 mcg/actuation 2 puff INH RTQ4HR PRN #1 g 10/31/17 aerosol inhaler (Ventolin HFA) ferrous sulfate 325 mg (65 mg 325 mg PO DAILY #60 tab 02/17/20 iron) tablet Allergies Allergy/AdvReac Type Severity Reaction Status Date / Time shellfish derived Allergy Mild HIVES Verified 03/05/21 16:25 [SHELLFISH DERIVED] azithromycin [AZITHROMYCIN] Allergy Unknown SWOLLEN Verified 03/05/21 16:25 LIPS diltiazem [From CARDIZEM] Allergy Unknown HEART BLOCK Verified 03/05/21 16:25 trazodone [TRAZODONE] Allergy Unknown STOP Verified 03/05/21 16:25 BREATHING doxycycline [DOXYCYCLINE] AdvReac Mild STOMACH Verified 03/05/21 16:25 UPSET Review of Systems <KENNETH Godinez - Last Filed: 03/05/21 18:53> Review of Systems Narrative: General: denies fever, chills, feels tired Head/Neck: denies headache, neck pain Eyes: denies visual changes, eye pain Cardio: denies chest pain, palpitations, tightness, or pressure Respiratory: denies shortness of breath, cough GI: denies abdominal pain, nausea, vomiting, or diarrhea : denies dysuria, hematuria MSK: denies joint pain, muscle weakness Skin: denies rash, itching Neuro: denies numbness, tingling Patient History <KENNETH Godinez - Last Filed: 03/05/21 18:53> Medical History Afib Anemia aplastic aregenerative CAD (coronary atherosclerotic disease) Chronic renal failure Depression Endocarditis Hemolytic anemia Hyperlipemia Migraine SUPERFICIAL LACERATION OF TONGUE Surgical History H/O prosthetic aortic valve replacement Hx of CABG Mitral valve replaced Social History household members: family and children Smoking Status: Never smoker alcohol intake: never additional social history: Past Medical History 1. Rheumatic heart disease. 2. CAD. 3. Hypertension. 4. Depression. 5. Panic disorder. 6. Hiatal hernia. 7. Migraines. 8. Carotid stenosis. 9. Osteopenia. 10. Osteoarthritis. 11. Hyperlipidemia. 12. PAF. 13. Hemolytic anemia 14. Chronic kidney disease. Past Surgical History 1. Aortic and mitral valve replacement. 2. CABG x1. 3. Tubal ligation. 4. Hemorrhagic 2. 5. Transfemoral cath with mitral valve implantation. October 2016. 6. Transvenous pacemaker placement. October 2016. 7. Right femoral vein closure October 2016. Smoking Status: Never smoker alcohol intake frequency: other Substance Use Type: marijuana and other Exam <KENNETH Godinez - Last Filed: 03/05/21 18:53> Narrative Exam Narrative: Independently reviewed vitals signs and nursing notes. General: Awake, alert, nontoxic, no cardiorespiratory distress Head/Neck: Atraumatic, neck full range of motion Eyes: EOMI, conjunctiva normal Nose: nares patent, no rhinorrhea Mouth/Throat: moist mucus membranes, posterior pharynx normal, no oral lesions Cardio: Regular rate and rhythm, no peripheral edema, systolic murmur, normal sinus rhythm without ectopy Respiratory: respirations unlabored without wheezing, stridor, or rales. No retractions. GI: Abdomen soft, nontender MSK: Moves all extremities, neurovascularly intact Skin: Normal capillary refill, no rash Neuro: Normal speech and cognition, normal gait Initial Vital Signs Initial Vital Signs: Vital Signs Temperature 99.1 F 03/05/21 16:10 Pulse Rate 80 03/05/21 16:10 Respiratory Rate 18 03/05/21 16:10 Blood Pressure 139/66 03/05/21 16:10 Pulse Oximetry 94 03/05/21 16:10 <Pancho Amaya DO - Last Filed: 03/06/21 08:02> Initial Vital Signs Initial Vital Signs: Vital Signs Temperature 99.1 F 03/05/21 16:10 Pulse Rate 80 03/05/21 16:10 Respiratory Rate 18 03/05/21 16:10 Blood Pressure 139/66 03/05/21 16:10 Pulse Oximetry 94 03/05/21 16:10 Course <JOSÉ MIGUEL GodinezP - Last Filed: 03/05/21 18:53> Orders Ordered: ED Orders 03/05/21 16:11 XR chest 1V Stat EKG-12 Lead Stat 03/05/21 16:25 Complete Blood Count AUTO DIFF Stat Comprehensive Metabolic Panel Stat Lipase Stat Troponin & CK Cardiac Panel Stat 03/05/21 17:12 COVID19 -Nasal swab/Pre-Proc Stat Vital Signs Vital signs: Vital Signs - 8 hr 03/05/21 16:10 03/05/21 16:14 03/05/21 16:16 Temperature 99.1 F Pulse Rate 80 80 80 Respiratory Rate 18 24 22 Blood Pressure 139/66 139/66 Pulse Oximetry 94 97 97 03/05/21 16:30 03/05/21 17:00 03/05/21 17:30 Temperature Pulse Rate 68 66 66 Respiratory Rate 22 28 H 20 Blood Pressure 128/65 126/73 115/67 Pulse Oximetry 97 98 98 <DO Farnaz Maldonado Last Filed: 03/06/21 08:02> Orders Ordered: ED Orders 03/05/21 16:11 XR chest 1V Stat EKG-12 Lead Stat 03/05/21 16:25 Complete Blood Count AUTO DIFF Stat Comprehensive Metabolic Panel Stat Lipase Stat Troponin & CK Cardiac Panel Stat 03/05/21 17:12 COVID19 -Nasal swab/Pre-Proc Stat Vital Signs Vital signs: Vital Signs - 8 hr 03/05/21 16:10 03/05/21 16:14 03/05/21 16:16 Temperature 99.1 F Pulse Rate 80 80 80 Respiratory Rate 18 24 22 Blood Pressure 139/66 139/66 Pulse Oximetry 94 97 97 03/05/21 16:30 03/05/21 17:00 03/05/21 17:30 Temperature Pulse Rate 68 66 66 Respiratory Rate 22 28 H 20 Blood Pressure 128/65 126/73 115/67 Pulse Oximetry 97 98 98 MDM - Weakness <Haritha Boswell [facility] - Last Filed: 03/05/21 18:53> Lab Data Result diagrams: 03/05/21 16:25 03/05/21 16:25 Labs: Lab Results 03/05/21 03/05/21 03/05/21 Range/Units 16:25 16:25 17:12 WBC 6.6 (4.5-11.0) X10^3/uL RBC 4.81 (4.0-5.2) X10^6/uL Hgb 13.5 (12.0-16.0) g/dL Hct 41.5 (36-46) % MCV 86.2 (80-100) fL MCH 28.1 (26-34) PG MCHC 32.6 (30-36) % RDW 14.7 (11.6-14.8) % Plt Count 304 (150-400) X10^3/uL Neut % (Auto) 64.4 (50-75) % Lymph % (Auto) 22.3 L (25-40) % Winkler % (Auto) 10.1 (3-14) % Eos % (Auto) 2.2 (2-4) % Baso % (Auto) 1.0 (0-2) % Neut # (Auto) 4300 (3899-0820) /uL Lymph # (Auto) 1500 (2059-4317) /uL Winkler # (Auto) 700 (0-900) /uL Eos # (Auto) 100 (0-450) /uL Baso # (Auto) 100 (0-100) /uL Sodium 139 (137-145) mmol/L Potassium 4.7 (3.4-5.1) mmol/L Chloride 106 (98-107) mmol/L Carbon Dioxide 24 (22-32) mmol/L BUN 34 H (7-17) mg/dL Creatinine 1.77 H (0.52-1.04) mg/dL Estimated GFR 28.4 L (>60) mL/min BUN/Creatinine Ratio 19.2 (6-22) Glucose 100 (80-110) mg/dL Calcium 9.2 (8.4-10.2) mg/dL Total Bilirubin 0.6 (0.2-1.3) mg/dL AST 36 (14-36) IU/L ALT 29 (<35) IU/L Alkaline Phosphatase 124 (38-126) U/L Total Creatine Kinase 71 (30-135) U/L CK-MB (CK-2) TNP CK-MB (CK-2) Rel Index TNP Troponin I < 0.012 (0.01-0.034) ng/mL Total Protein 8.3 H (6.3-8.2) g/dL Albumin 4.5 (3.5-5.0) g/dL Globulin 3.8 (1.7-4.1) g/dL Albumin/Globulin Ratio 1.2 (1.0-2.8) Lipase 184 (23-300) U/L SARS-CoV-2 (PCR) Negative (Negative) Imaging Data Chest x-ray: Radiologist Impression: PROCEDURE:? XR CHEST 1V ? INDICATIONS:? chest pain ? TECHNIQUE:? One view of the chest was acquired.? ? COMPARISON:? [facility], , XR CHEST 2V, 11/20/2018, 23:26.? [facility], , XR CHEST 1V, 01/30/2018, 22:29. ? FINDINGS:? ? Surgical changes and devices:? Sternotomy and a prosthetic aortic valve.? ? Lungs and pleura:? Bilateral interstitial prominence likely secondary to mild pulmonary edema secondary to CHF.? Pleural thickening or small loculated pleural fluid in the right minor fissure.? No pneumothorax.? ? Mediastinum:? Mediastinal contours appear normal.? Heart size is moderately increased.? ? Bones and chest wall:? No suspicious bony lesions.? Overlying soft tissues appear unremarkable.? ? IMPRESSION:? Mild CHF. ? ? Dictated by: Sammi Gill M.D. on 03/05/2021 at 16:54 ? ? Approved by: Sammi Gill M.D. on 03/05/2021 at 16:57 ? [facility] Narrative Medical decision making narrative: 70-year-old female with a history of CABG, mitral and aortic valve replacements, pulmonary hypertension, CKD stage 4, and hemolytic anemia in 2017, presents to the ED today for 1 week of fatigue and feeling more tired than usual. ED workup included EKG which showed normal sinus rhythm without any ST changes, chest x-ray which showed mild CHF, a negative COVID test, and lab work with an H&H of 13.5 and 41.5, WBCs of 6.6, creatinine of 1.7, LFTs within normal limits, lipase of 184 and a negative troponin. This is most likely fatigue without an acute source, possibly related to the recent increase to her metoprolol dosing from 75 mg to 100 mg b.i.d.. This does not appear to be an infectious cause, and differential includes worsening of her CHF, chronic fatigue syndrome, possible sleep apnea. Vital signs were within normal limits today. Patient understands to follow up with her PCP in the next week if symptoms persist, and to return for any new or worsening symptoms. Patient is appropriate and amenable to discharge home. Vital signs are stable on repeat examination is unremarkable. Patient has been informed of results. Patient has been given strict return to ER precautions for any new or worsening symptoms. Patient understands to follow up closely with outpatient providers as instructed. Patient understands plan and agrees to discharge home. All questions and concerns answered at this time. <Pancho Amaya, DO - Last Filed: 03/06/21 08:02> Lab Data Labs: Lab Results 03/05/21 03/05/21 03/05/21 Range/Units 16:25 16:25 17:12 WBC 6.6 (4.5-11.0) X10^3/uL RBC 4.81 (4.0-5.2) X10^6/uL Hgb 13.5 (12.0-16.0) g/dL Hct 41.5 (36-46) % MCV 86.2 (80-100) fL MCH 28.1 (26-34) PG MCHC 32.6 (30-36) % RDW 14.7 (11.6-14.8) % Plt Count 304 (150-400) X10^3/uL Neut % (Auto) 64.4 (50-75) % Lymph % (Auto) 22.3 L (25-40) % Winkler % (Auto) 10.1 (3-14) % Eos % (Auto) 2.2 (2-4) % Baso % (Auto) 1.0 (0-2) % Neut # (Auto) 4300 (6129-7711) /uL Lymph # (Auto) 1500 (2632-0995) /uL Winkler # (Auto) 700 (0-900) /uL Eos # (Auto) 100 (0-450) /uL Baso # (Auto) 100 (0-100) /uL Sodium 139 (137-145) mmol/L Potassium 4.7 (3.4-5.1) mmol/L Chloride 106 (98-107) mmol/L Carbon Dioxide 24 (22-32) mmol/L BUN 34 H (7-17) mg/dL Creatinine 1.77 H (0.52-1.04) mg/dL Estimated GFR 28.4 L (>60) mL/min BUN/Creatinine Ratio 19.2 (6-22) Glucose 100 (80-110) mg/dL Calcium 9.2 (8.4-10.2) mg/dL Total Bilirubin 0.6 (0.2-1.3) mg/dL AST 36 (14-36) IU/L ALT 29 (<35) IU/L Alkaline Phosphatase 124 (38-126) U/L Total Creatine Kinase 71 (30-135) U/L CK-MB (CK-2) TNP CK-MB (CK-2) Rel Index TNP Troponin I < 0.012 (0.01-0.034) ng/mL Total Protein 8.3 H (6.3-8.2) g/dL Albumin 4.5 (3.5-5.0) g/dL Globulin 3.8 (1.7-4.1) g/dL Albumin/Globulin Ratio 1.2 (1.0-2.8) Lipase 184 (23-300) U/L SARS-CoV-2 (PCR) Negative (Negative) Discharge Plan Departure Patient Disposition: Home Clinical Impression: Fatigue Qualifiers: Fatigue type: unspecified Qualified Code(s): R53.83 - Other fatigue Instructions: DI for Fatigue Activity Restrictions/Additional Instructions: It was nice to meet you today. You have been diagnosed with fatigue. We did not find any concerning reasons for your fatigue at this time. Your H&H was 13.5 and 41.5, your creatinine was 1.77, your white blood cell count was normal. Please follow-up with your primary care physician if this continues. It may be due to your metoprolol dosing. *What to do: *Please continue to take your regular medications as directed. [ ] New medication prescriptions sent to your pharmacy: [ ] [ ] New medication written as a paper prescription [x ] No new medications given *Please follow up with your primary care provider in 2-3 days, call for an appointment. Let them know you were seen in the Emergency Department and that we ask that you be seen in follow up. We will electronically transmit a record of today's note if your PCP is in our system *If you do not have a primary care provider please contact the [facility] Resource line at [phone]. They will ask some questions about your medical history and help get you set up with a doctor in the community. *Return to Emergency Department if you should have any new, worsening or concerning symptoms, such as [fever greater than 101F, chills, worsening pain, persistent vomiting or other bothersome symptoms] Prescriptions: No Action pantoprazole [Protonix] 40 MG tablet,delayed release (DR/EC) 40 mg PO BID Qty: 0 RF: 0 amiodarone 200 MG tablet 200 mg PO QDAY Qty: 0 RF: 0 atorvastatin 40 MG tablet 40 mg PO BEDTIME Qty: 0 RF: 0 aspirin 81 MG tablet,delayed release (DR/EC) 81 mg PO QDAY Qty: 0 RF: 0 warfarin [Coumadin] 5 MG tablet 2.5 mg PO QDAY Qty: 0 RF: 0 buspirone 15 MG tablet 15 mg PO BID Qty: 0 RF: 0 cyanocobalamin (vitamin B-12) [Vitamin B-12] 1,000 mcg Tablet 1,000 mcg PO DAILY RF: 0 folic acid 400 mcg Tablet 400 mcg PO DAILY RF: 0 acetaminophen [Acetaminophen Extra Strength] 500 mg Tablet 1,000 mg PO Q6H PRN (Reason: Pain (Scale Score 1-3)) RF: 0 alprazolam 0.5 mg Tablet 0.5 mg PO DAILY PRN (Reason: Anxiety) RF: 0 losartan 25 mg Tablet 12.5 mg PO DAILY RF: 0 furosemide [Lasix] 20 mg Tablet 40 mg PO BID RF: 0 fluticasone propionate 50 mcg/actuation [place],Suspension 1 spray INTRANASAL BID PRN (Reason: Nasal Congestion) RF: 0 albuterol sulfate [Ventolin HFA] 90 mcg/actuation Hfa Aerosol Inhaler 2 puff INH RTQ4HR PRN (Reason: Shortness Of Breath) Qty: 1 RF: 0 fluoxetine 40 mg capsule 60 mg PO DAILY RF: 0 allopurinol 300 mg tablet 150 mg PO DAILY RF: 0 metoprolol succinate 50 mg tablet extended release 24 hr 75 mg PO BID RF: 0 warfarin 5 mg tablet 5 mg PO WEEKLY RF: 0 ferrous sulfate 325 mg (65 mg iron) tablet 325 mg PO DAILY Qty: 60 RF: 0 Referrals: Mitchel Quiroz DO [Primary Care Provider] - <Pancho Amaya DO - Last Filed: 03/06/21 08:02> Cosign ED Attending Cosignature Attestation: Dr Amaya Co-Sign Statement: I was available for consultation during this patient's emergency department visit. This chart is signed by myself for administrative purposes only. I did not have direct contact with this patient during this visit. They were seen independently by the APC.
== END 2021-03-05 18:00 | disposition home or self-care (01) ==
PROVIDERS: Emergency Medicine; Emergency Provider Nurse Practitioner Critical Care Medicine; Family Provider Family Medicine; PCP Family Medicine
DX: R53.83 Other fatigue (principal); R07.9 Chest pain, unspecified; Z20.822 Contact with and (suspected) exposure to COVID-19
CPT/HCPCS: 36415; 71045; 80053; 82550; 83690; 84484; 85025; 87635; 93005; 99283; 99284; C9803

== ENCOUNTER 2021-09-14 09:25 | Emergency (ER) | payer MEDICARE, OTHER, SELFPAY ==
[2020-02-15 18:02] VITALS: BMI 34.0
[2021-09-14] VITALS (7 sets, daily range): BP systolic 122–146; BP diastolic 60–86; PULSE 70–85; RESP 18–22; TEMP 37.3; O2SAT 95–97; BMI 31.4
--- NOTE | 2021-09-14 09:51 | DI.RAD.S_ITS ---
PROCEDURE: XR CHEST 2V INDICATIONS: shortness of breath TECHNIQUE: 2 views of the chest were acquired. COMPARISON: [facility], CR, XR CHEST 1V, 03/05/2021, 16:17. FINDINGS: Surgical changes and devices: Sternotomy wires and prosthetic heart valves are noted. Lungs and pleura: Mild prominence of the bilateral interstitial markings and central vasculature is seen. No acute consolidation. No pleural effusion or pneumothorax. Mediastinum: Mediastinal contours are normal. Heart size is normal. Bones and chest wall: No suspicious bony abnormalities. Soft tissues appear unremarkable. IMPRESSION: Bilateral interstitial prominence is most likely secondary to mild pulmonary edema/heart failure. Dictated by: Umair Luna M.D. on 09/14/2021 at 9:07 Approved by: Umair Luna M.D. on 09/14/2021 at 9:10
[2021-09-14 10:11] LABS: COVID19 -Nasal RAPID Negative (Negative)
[2021-09-14 11:21] LABS: Add Manual Diff / Slide Review NO; Basophils Absolute Auto 100 /uL (0-100); Basophils Percent Auto 0.7 % (0-2); Eosinophils Absolute Auto 200 /uL (0-450); Eosinophils Percent Auto 2.4 % (2-4); Hematocrit 40.2 % (36-46); Hemoglobin 13.1 g/dL (12.0-16.0); Lymphocytes Absolute Auto 800 /uL (1100-4500); Lymphocytes Percent Auto 10.3 % (25-40); Mean Corpuscular HGB Conc 32.6 % (30-36); Mean Corpuscular Hemoglobin 28.1 PG (26-34); Mean Corpuscular Volume 86.2 fL (80-100); Monocytes Absolute Auto 600 /uL (0-900); Monocytes Percent Auto 7.5 % (3-14); Neutrophils Absolute Auto 6200 /uL (1500-7000); Neutrophils Percent Auto 79.1 % (50-75); Platelet Count 307 X10^3/uL (150-400); Red Blood Cell Count 4.66 X10^6/uL (4.0-5.2); White Blood Cell Count 7.8 X10^3/uL (4.5-11.0)
[2021-09-14 11:34] LABS: Alanine Aminotransferase 28 IU/L (<35); Albumin 4.7 g/dL (3.5-5.0); Albumin Globulin Ratio 1.2 (1.0-2.8); Alkaline Phosphatase 108 U/L (38-126); Aspartate Aminotransferase 35 IU/L (14-36); BUN Creatinine Ratio 15.1 (6-22); Bilirubin Total 0.5 mg/dL (0.2-1.3); Blood Urea Nitrogen 28 mg/dL (7-17); Calcium 9.3 mg/dL (8.4-10.2); Carbon Dioxide 25 mmol/L (22-32); Chloride 104 mmol/L (98-107); Globulin 3.8 g/dL (1.7-4.1); Glucose 96 mg/dL (80-110); HEMOLYSIS < 15 (0-50); Lactate (Lactic Acid) 1.3 mmol/L (0.7-2.1); Potassium 4.7 mmol/L (3.4-5.1); Sodium 139 mmol/L (137-145); Total Protein 8.5 g/dL (6.3-8.2)
--- NOTE | 2021-09-14 11:49 | ED_ITS ---
HPI - General Adult General Chief complaint: Shortness of Breath/Dyspnea Stated complaint: congested, coughing a lot, feeling weak, SOB Time Seen by Provider: 09/14/21 11:20 Source: patient Mode of arrival: Wheelchair History of Present Illness HPI narrative: Patient is a 71-year-old female. Was seen in the walk-in clinic yesterday an [facility] facility. Was diagnosis sinusitis. Was given Bactrim and Tessalon Perles. States that his symptoms have continued. She has been feeling ill for approximately 1 week now. She states that the cough is causing her to not be able to sleep at night. Related Data Home Medications Medication Instructions Recorded Confirmed amiodarone 200 mg tablet 200 mg PO QDAY #0 11/26/16 02/15/20 aspirin 81 mg tablet,delayed 81 mg PO QDAY #0 11/26/16 02/15/20 release atorvastatin 40 mg tablet 40 mg PO BEDTIME #0 11/26/16 02/15/20 buspirone 15 mg tablet 15 mg PO BID #0 11/26/16 02/15/20 pantoprazole 40 mg tablet,delayed 40 mg PO BID #0 11/26/16 02/15/20 release (Protonix) warfarin 5 mg tablet (Coumadin) 2.5 mg PO QDAY #0 11/26/16 02/15/20 acetaminophen 500 mg tablet 1,000 mg PO Q6H PRN 10/28/17 02/15/20 (Acetaminophen Extra Strength) alprazolam 0.5 mg tablet 0.5 mg PO DAILY PRN 10/28/17 02/15/20 cyanocobalamin (vitamin B-12) 1,000 mcg PO DAILY 10/28/17 02/15/20 1,000 mcg tablet (Vitamin B-12) fluticasone propionate 50 1 spray INTRANASAL BID PRN 10/28/17 02/15/20 mcg/actuation nasal spray,suspension folic acid 400 mcg tablet 400 mcg PO DAILY 10/28/17 02/15/20 furosemide 20 mg tablet (Lasix) 40 mg PO BID 10/28/17 02/15/20 losartan 25 mg tablet 12.5 mg PO DAILY 10/28/17 02/15/20 fluoxetine 40 mg capsule 60 mg PO DAILY 07/24/18 02/15/20 allopurinol 300 mg tablet 150 mg PO DAILY 03/28/19 02/15/20 metoprolol succinate 50 mg 75 mg PO BID 03/28/19 02/15/20 tablet,extended release 24 hr warfarin 5 mg tablet 5 mg PO WEEKLY 03/28/19 02/15/20 Previous Rx's Medication Instructions Recorded albuterol sulfate 90 mcg/actuation 2 puff INH RTQ4HR PRN #1 g 10/31/17 aerosol inhaler (Ventolin HFA) ferrous sulfate 325 mg (65 mg 325 mg PO DAILY #60 tab 02/17/20 iron) tablet Allergies Allergy/AdvReac Type Severity Reaction Status Date / Time shellfish derived Allergy Mild HIVES Verified 03/05/21 16:25 [SHELLFISH DERIVED] azithromycin [AZITHROMYCIN] Allergy Unknown SWOLLEN Verified 03/05/21 16:25 LIPS diltiazem [From CARDIZEM] Allergy Unknown HEART BLOCK Verified 03/05/21 16:25 trazodone [TRAZODONE] Allergy Unknown STOP Verified 03/05/21 16:25 BREATHING doxycycline [DOXYCYCLINE] AdvReac Mild STOMACH Verified 03/05/21 16:25 UPSET Review of Systems Constitutional Constitutional: Reports body ache(s), Reports fatigue, Denies fever(s) and Reports lethargy ENT Comments: Sinus congestion Respiratory Respiratory: Reports cough Gastrointestinal Gastrointestinal: Reports as per HPI and Reports system reviewed and no additional complaints, except as documented Integumentary/Breasts Skin/Breast: Reports system reviewed and no additional complaints, except as documented and Reports as per HPI Neurologic Neurologic: Reports system reviewed and no additional complaints, except as documented Endocrine Endocrine: Reports fatigue Hematologic/Lymphatic On Anticoagulants: No Patient History Medical History Afib Anemia aplastic aregenerative CAD (coronary atherosclerotic disease) Chronic renal failure Depression Endocarditis Hemolytic anemia Hyperlipemia Migraine SUPERFICIAL LACERATION OF TONGUE Surgical History H/O prosthetic aortic valve replacement Hx of CABG Mitral valve replaced Social History household members: family and children Smoking Status: Never smoker alcohol intake: never additional social history: Past Medical History 1. Rheumatic heart disease. 2. CAD. 3. Hypertension. 4. Depression. 5. Panic disorder. 6. Hiatal hernia. 7. Migraines. 8. Carotid stenosis. 9. Osteopenia. 10. Osteoarthritis. 11. Hyperlipidemia. 12. PAF. 13. Hemolytic anemia 14. Chronic kidney disease. Past Surgical History 1. Aortic and mitral valve replacement. 2. CABG x1. 3. Tubal ligation. 4. Hemorrhagic 2. 5. Transfemoral cath with mitral valve implantation. October 2016. 6. Transvenous pacemaker placement. October 2016. 7. Right femoral vein closure October 2016. Smoking Status: Never smoker alcohol intake frequency: holidays/special occasions only Substance Use Type: marijuana and other Exam Initial Vital Signs Initial Vital Signs: Vital Signs Temperature 99.1 F 09/14/21 09:43 Pulse Rate 84 09/14/21 09:43 Respiratory Rate 18 09/14/21 09:43 Blood Pressure 128/86 09/14/21 09:43 Pulse Oximetry 96 09/14/21 09:43 HENMT Head: normal to inspection and normocephalic Resp Effort & Inspection: normal respiratory effort Auscultation: clear to auscultation bilaterally Cardio Rate: regular rate Rhythm: regular rhythm GI Inspection: normal to inspection Skin General: no rashes or lesions noted Neuro General: patient alert, patient awake, patient oriented x3 and moves all ext remities Extrem General: normal to inspection and capillary refill normal Psych Appearance: grossly normal and well kempt Course Orders Ordered: ED Orders 09/14/21 09:47 COVID19 -Nasal swab/Pre-Proc Stat 09/14/21 09:51 XR chest 2V Stat Measure peak expiratory flow ONCE RT Consult Eval and Treat Now 09/14/21 10:57 EKG-12 Lead Stat 09/14/21 11:10 Complete Blood Count AUTO DIFF Stat Comprehensive Metabolic Panel Stat Lactate (Lactic Acid) Stat Vital Signs Vital signs: Vital Signs - 8 hr 09/14/21 10:52 09/14/21 10:53 09/14/21 11:00 Pulse Rate 82 70 83 Respiratory Rate 22 Blood Pressure 135/73 122/60 Pulse Oximetry 95 96 96 09/14/21 11:21 09/14/21 11:30 09/14/21 12:00 Pulse Rate 85 83 83 Respiratory Rate 18 18 20 Blood Pressure 146/68 H Pulse Oximetry 97 96 95 Medical Decision Making Lab Data Lab results reviewed: Yes I reviewed the patient's lab results. Result diagrams: 09/14/21 11:10 09/14/21 11:10 Labs: Lab Results 09/14/21 09/14/21 09/14/21 Range/Units 09:47 11:10 11:10 WBC 7.8 (4.5-11.0) X10^3/uL RBC 4.66 (4.0-5.2) X10^6/uL Hgb 13.1 (12.0-16.0) g/dL Hct 40.2 (36-46) % MCV 86.2 (80-100) fL MCH 28.1 (26-34) PG MCHC 32.6 (30-36) % RDW 14.0 (11.6-14.8) % Plt Count 307 (150-400) X10^3/uL Neut % (Auto) 79.1 H (50-75) % Lymph % (Auto) 10.3 L (25-40) % [place] % (Auto) 7.5 (3-14) % Eos % (Auto) 2.4 (2-4) % Baso % (Auto) 0.7 (0-2) % Neut # (Auto) 6200 (0149-6267) /uL Lymph # (Auto) 800 L (0957-1461) /uL [place] # (Auto) 600 (0-900) /uL Eos # (Auto) 200 (0-450) /uL Baso # (Auto) 100 (0-100) /uL Sodium 139 (137-145) mmol/L Potassium 4.7 (3.4-5.1) mmol/L Chloride 104 (98-107) mmol/L Carbon Dioxide 25 (22-32) mmol/L BUN 28 H (7-17) mg/dL Creatinine 1.85 H (0.52-1.04) mg/dL Estimated GFR 27.0 L (>60) mL/min BUN/Creatinine Ratio 15.1 (6-22) Glucose 96 (80-110) mg/dL Lactate (0.7-2.1) mmol/L Calcium 9.3 (8.4-10.2) mg/dL Total Bilirubin 0.5 (0.2-1.3) mg/dL AST 35 (14-36) IU/L ALT 28 (<35) IU/L Alkaline Phosphatase 108 (38-126) U/L Total Protein 8.5 H (6.3-8.2) g/dL Albumin 4.7 (3.5-5.0) g/dL Globulin 3.8 (1.7-4.1) g/dL Albumin/Globulin Ratio 1.2 (1.0-2.8) SARS-CoV-2 (PCR) Negative (Negative) 09/14/21 Range/Units 11:10 WBC (4.5-11.0) X10^3/uL RBC (4.0-5.2) X10^6/uL Hgb (12.0-16.0) g/dL Hct (36-46) % MCV (80-100) fL MCH (26-34) PG MCHC (30-36) % RDW (11.6-14.8) % Plt Count (150-400) X10^3/uL Neut % (Auto) (50-75) % Lymph % (Auto) (25-40) % [place] % (Auto) (3-14) % Eos % (Auto) (2-4) % Baso % (Auto) (0-2) % Neut # (Auto) (8266-6237) /uL Lymph # (Auto) (2662-5595) /uL Bates # (Auto) (0-900) /uL Eos # (Auto) (0-450) /uL Baso # (Auto) (0-100) /uL Sodium (137-145) mmol/L Potassium (3.4-5.1) mmol/L Chloride (98-107) mmol/L Carbon Dioxide (22-32) mmol/L BUN (7-17) mg/dL Creatinine (0.52-1.04) mg/dL Estimated GFR (>60) mL/min BUN/Creatinine Ratio (6-22) Glucose (80-110) mg/dL Lactate 1.3 (0.7-2.1) mmol/L Calcium (8.4-10.2) mg/dL Total Bilirubin (0.2-1.3) mg/dL AST (14-36) IU/L ALT (<35) IU/L Alkaline Phosphatase (38-126) U/L Total Protein (6.3-8.2) g/dL Albumin (3.5-5.0) g/dL Globulin (1.7-4.1) g/dL Albumin/Globulin Ratio (1.0-2.8) SARS-CoV-2 (PCR) (Negative) Urine Dip Bedside Urine Glucose Negative Bedside Urine Bilirubin - Negative Bedside Urine Ketone - Negative Urine Specific [place] 1.010 Bedside Urine Occult Blood - Negative Bedside Urine pH 6.0 Bedside Urine Protein - Negative Bedside Urine Urobilinogen - Negative Bedside Urine Nitrite - Negative Bedside Urine Leukocytes - Negative Esterase Point of care testing: Urine Dip Bedside Urine Glucose Negative Bedside Urine Bilirubin - Negative Bedside Urine Ketone - Negative Urine Specific [place] 1.010 Bedside Urine Occult Blood - Negative Bedside Urine pH 6.0 Bedside Urine Protein - Negative Bedside Urine Urobilinogen - Negative Bedside Urine Nitrite - Negative Bedside Urine Leukocytes - Negative Esterase Imaging Data Chest x-ray: Radiologist's Impression: [address] [address] XRay Report Signed Patient: Joselyn Prado MR#: [id number] : 1950 Acct:[id number] Age/Sex: 71 / F Date of Service: 09/14/21 Loc: ED Accession Number: [id number] ?? Procedure: XR chest 2V Ordering Provider: Pancho Amaya D.O. PROCEDURE:? XR CHEST 2V ? INDICATIONS:? shortness of breath ? TECHNIQUE:? 2 views of the chest were acquired.? ? COMPARISON:? [facility], , XR CHEST 1V, 03/05/2021, 16:17. ? FINDINGS:? ? Surgical changes and devices:? Sternotomy wires and prosthetic heart valves are noted. ? Lungs and pleura:? Mild prominence of the bilateral interstitial markings and central vasculature is seen.? No acute consolidation.? No pleural effusion or pneumothorax. ? Mediastinum:? Mediastinal contours are normal.? Heart size is normal.? ? Bones and chest wall:? No suspicious bony abnormalities.? Soft tissues appear unremarkable.? ? IMPRESSION:? Bilateral interstitial prominence is most likely secondary to mild pulmonary edema/heart failure. ? ? Dictated by: Umair Luna M.D. on 09/14/2021 at 9:07 ? ? Approved by: Umair Luna M.D. on 09/14/2021 at 9:10 ECG Data Attestation: I personally reviewed and interpreted this ECG as follows: Interpretation: Sinus rhythm Ventricular rate 85 Normal axis Normal QRS Normal QTC No ST T wave changes MDM Narrative Medical decision making narrative: Patient appears well. Is currently on antibiotics and other anti tussive medications. Chest x-ray today shows no signs of pneumonia. She is not tachypneic. Not hypoxic. No respiratory distress. No indication to change antibiotics. No indication for admission to hospital despite patient's request. Informed her that she needs to continue to take the antibiotics as directed. She was given return precautions. She expressed understanding and agreement. Discharge Plan Departure Patient Disposition: Home Clinical Impression: Cough, Chest congestion Instructions: DI for Cough -- Adult Activity Restrictions/Additional Instructions: I recommend that you continue to take all of your medications as directed to include the medications that was prescribed to you yesterday at the walk-in clinic. Be sure to increase your fluid intake. You can continue to take Tylenol for any fevers or body aches. Contact your primary doctor for a follow- up. Return to the emergency department for any new or worsening symptoms. Prescriptions: No Action pantoprazole [Protonix] 40 MG tablet,delayed release (DR/EC) 40 mg PO BID Qty: 0 0RF amiodarone 200 MG tablet 200 mg PO QDAY Qty: 0 0RF Label Comments: No longer taking atorvastatin 40 MG tablet 40 mg PO BEDTIME Qty: 0 0RF aspirin 81 MG tablet,delayed release (DR/EC) 81 mg PO QDAY Qty: 0 0RF warfarin [Coumadin] 5 MG tablet 2.5 mg PO QDAY Qty: 0 0RF Label Comments: Takes every day except Monday, On Monday she takes 5mg buspirone 15 MG tablet 15 mg PO BID Qty: 0 0RF cyanocobalamin (vitamin B-12) [Vitamin B-12] 1,000 mcg Tablet 1,000 mcg PO DAILY 0RF folic acid 400 mcg Tablet 400 mcg PO DAILY 0RF acetaminophen [Acetaminophen Extra Strength] 500 mg Tablet 1,000 mg PO Q6H PRN (Reason: Pain (Scale Score 1-3)) 0RF alprazolam 0.5 mg Tablet 0.5 mg PO DAILY PRN (Reason: Anxiety) 0RF losartan 25 mg Tablet 12.5 mg PO DAILY 0RF furosemide [Lasix] 20 mg Tablet 40 mg PO BID 0RF fluticasone propionate 50 mcg/actuation [place],Suspension 1 spray INTRANASAL BID PRN (Reason: Nasal Congestion) 0RF albuterol sulfate [Ventolin HFA] 90 mcg/actuation Hfa Aerosol Inhaler 2 puff INH RTQ4HR PRN (Reason: Shortness Of Breath) Qty: 1 0RF fluoxetine 40 mg capsule 60 mg PO DAILY 0RF allopurinol 300 mg tablet 150 mg PO DAILY 0RF metoprolol succinate 50 mg tablet extended release 24 hr 75 mg PO BID 0RF Label Comments: take 1 tablet by mouth twice a day DO NOT CRUSH OR CHEW warfarin 5 mg tablet 5 mg PO WEEKLY 0RF Label Comments: Takes 5 MG on Tuesdays only ferrous sulfate 325 mg (65 mg iron) tablet 325 mg PO DAILY Qty: 60 0RF Referrals: Mitchel Quiroz DO [Primary Care Provider] -
== END 2021-09-14 12:13 | disposition home or self-care (01) ==
PROVIDERS: Emergency Provider Emergency Medicine; Family Provider Family Medicine; PCP Family Medicine
DX: R05.9 Cough, unspecified (principal); R09.89 Other specified symptoms and signs involving the circulatory and respiratory systems; Z20.822 Contact with and (suspected) exposure to COVID-19
CPT/HCPCS: 36415; 71046; 80053; 81003; 83605; 85025; 87635; 93005; 94150; 99283; 99284; C9803

== ENCOUNTER 2021-10-19 09:30 | Emergency (ER) | payer MEDICARE, OTHER, SELFPAY ==
[2020-02-15 18:02] VITALS: BMI 34.0
[2021-10-19] VITALS (16 sets, daily range): BP systolic 90–122; BP diastolic 56–66; PULSE 65–88; RESP 16–18; TEMP 36.9; O2SAT 93–100
--- NOTE | 2021-10-19 09:48 | DI.RAD.S_ITS ---
PROCEDURE: XR CHEST 2V INDICATIONS: cough TECHNIQUE: 2 views of the chest were acquired. COMPARISON: [facility], CR, XR CHEST 2V, 11/20/2018, 23:26. [facility], CR, XR CHEST 1V, 01/30/2018, 22:29. [facility], CR, XR CHEST 2V, 09/14/2021, 9:45. FINDINGS: Surgical changes and devices: Patient is status post median sternotomy and valvular replacement. Lungs and pleura: Lungs are clear. No pleural effusions or pneumothorax. Mediastinum: Mediastinal contours are normal. Heart size is normal. Bones and chest wall: No suspicious bony abnormalities. Soft tissues appear unremarkable. IMPRESSION: No acute cardiopulmonary findings. Dictated by: Karo Mercado M.D. on 10/19/2021 at 10:51 Approved by: Karo Mercado M.D. on 10/19/2021 at 10:52
--- NOTE | 2021-10-19 09:58 | ED.SOB ---
HPI - SOB/Dyspnea General Chief Complaint: Upper Respiratory Symptoms Stated Complaint: Cough, SOB, chills, weakness Time Seen by Provider: 10/19/21 09:41 Source: patient Mode of arrival: Wheelchair Limitations: no limitations History of Present Illness HPI Narrative: 71F nonsmoker with history of anemia, GI blood, prosthetic mitral valve, renal failure presents with a chief complaint of cough and postnasal drip. She denies fever or chills. She denies any shortness of breath or weakness. She denies any change in medications or diet. Seen here and evaluated under relatively similar circumstances in August, though she admittedly felt significantly worse at that time. She had appropriate evaluation including labs and imaging and was thought to have pulmonary congestion. Headache or blurred vision. She has a mild sore throat but denies difficulty in swallowing. Related Data Home Medications Medication Instructions Recorded Confirmed amiodarone 200 mg tablet 200 mg PO QDAY #0 11/26/16 02/15/20 aspirin 81 mg tablet,delayed 81 mg PO QDAY #0 11/26/16 02/15/20 release atorvastatin 40 mg tablet 40 mg PO BEDTIME #0 11/26/16 02/15/20 buspirone 15 mg tablet 15 mg PO BID #0 11/26/16 02/15/20 pantoprazole 40 mg tablet,delayed 40 mg PO BID #0 11/26/16 02/15/20 release (Protonix) warfarin 5 mg tablet (Coumadin) 2.5 mg PO QDAY #0 11/26/16 02/15/20 acetaminophen 500 mg tablet 1,000 mg PO Q6H PRN 10/28/17 02/15/20 (Acetaminophen Extra Strength) alprazolam 0.5 mg tablet 0.5 mg PO DAILY PRN 10/28/17 02/15/20 cyanocobalamin (vitamin B-12) 1,000 mcg PO DAILY 10/28/17 02/15/20 1,000 mcg tablet (Vitamin B-12) fluticasone propionate 50 1 spray INTRANASAL BID PRN 10/28/17 02/15/20 mcg/actuation nasal spray,suspension folic acid 400 mcg tablet 400 mcg PO DAILY 10/28/17 02/15/20 furosemide 20 mg tablet (Lasix) 40 mg PO BID 10/28/17 02/15/20 losartan 25 mg tablet 12.5 mg PO DAILY 10/28/17 02/15/20 fluoxetine 40 mg capsule 60 mg PO DAILY 07/24/18 02/15/20 allopurinol 300 mg tablet 150 mg PO DAILY 03/28/19 02/15/20 metoprolol succinate 50 mg 75 mg PO BID 03/28/19 02/15/20 tablet,extended release 24 hr warfarin 5 mg tablet 5 mg PO WEEKLY 03/28/19 02/15/20 Previous Rx's Medication Instructions Recorded albuterol sulfate 90 mcg/actuation 2 puff INH RTQ4HR PRN #1 g 10/31/17 aerosol inhaler (Ventolin HFA) ferrous sulfate 325 mg (65 mg 325 mg PO DAILY #60 tab 02/17/20 iron) tablet furosemide 20 mg tablet (Lasix) 20 mg PO DAILY #5 tab 10/19/21 Allergies Allergy/AdvReac Type Severity Reaction Status Date / Time shellfish derived Allergy Mild HIVES Verified 10/19/21 09:44 [SHELLFISH DERIVED] azithromycin [AZITHROMYCIN] Allergy Unknown SWOLLEN Verified 10/19/21 09:44 LIPS diltiazem [From CARDIZEM] Allergy Unknown HEART BLOCK Verified 10/19/21 09:44 trazodone [TRAZODONE] Allergy Unknown STOP Verified 10/19/21 09:44 BREATHING doxycycline [DOXYCYCLINE] AdvReac Mild STOMACH Verified 10/19/21 09:44 UPSET Review of Systems Review of Systems Narrative: GENERAL: Denies chills, fatigue, malaise, fever, sweats. HEENT: See HPI RESPIRATORY: See HPI CARDIOVASCULAR: Denies chest pain, palpitations, orthopnea, edema, GASTROINTESTINAL: Denies nausea, vomiting, abdominal pain, diarrhea, constipation, melena. : Denies dysuria, frequency, incontinence, hematuria, urinary retention. MUSCULOSKELETAL: denies weakness, joint pain, or bony pain SKIN: Denies rash, skin lesions, or other NEUROLOGIC: Denies weakness, headache, numbness, change in speech, confusion, seizures, incoordination. PSYCHIATRIC: No concerning psychosocial issues. 12 point review of systems is negative except for those stated above Patient History Medical History (Updated 10/19/21 @ 13:06 by J Carlos Enriquez DO) Afib Anemia aplastic aregenerative CAD (coronary atherosclerotic disease) Chronic renal failure Depression Endocarditis Hemolytic anemia Hyperlipemia Migraine SUPERFICIAL LACERATION OF TONGUE Surgical History H/O prosthetic aortic valve replacement Hx of CABG Mitral valve replaced Social History household members: family and children Smoking Status: Never smoker alcohol intake: never additional social history: Past Medical History 1. Rheumatic heart disease. 2. CAD. 3. Hypertension. 4. Depression. 5. Panic disorder. 6. Hiatal hernia. 7. Migraines. 8. Carotid stenosis. 9. Osteopenia. 10. Osteoarthritis. 11. Hyperlipidemia. 12. PAF. 13. Hemolytic anemia 14. Chronic kidney disease. Past Surgical History 1. Aortic and mitral valve replacement. 2. CABG x1. 3. Tubal ligation. 4. Hemorrhagic 2. 5. Transfemoral cath with mitral valve implantation. October 2016. 6. Transvenous pacemaker placement. October 2016. 7. Right femoral vein closure October 2016. Smoking Status: Never smoker alcohol intake frequency: holidays/special occasions only Substance Use Type: marijuana and other Exam Narrative Exam Narrative: GENERAL: [71 year old patient appears stated age. Well-developed patient, in mild distress. HEAD: Atraumatic. Normocephalic. EYES: Pupils equal round and reactive. Extraocular motions intact. No scleral icterus. No injection or drainage. ENT: Nose without bleeding, purulent drainage. Throat without erythema, tonsillar hypertrophy or exudate, though there is notable postnasal drip which is clear Airway patent. NECK: Trachea midline. Non tender CARDIOVASCULAR: Regular rate and rhythm without murmurs, gallops, or rubs. RESPIRATORY: Clear to auscultation. Breath sounds equal bilaterally. No wheezes, rales, or rhonchi. No evidence of increased work of breathing, use of accessory muscles, hypoxemia or need for supplemental oxygen GASTROINTESTINAL: Abdomen soft, non-tender, nondistended. EXTREMITIES: No edema or joint tenderness. BACK: Nontender without deformity or crepitance. No flank tenderness. NEURO: AOx3. SKIN: No rash or erythema of visible areas Initial Vital Signs Initial Vital Signs: Vital Signs Pulse Rate 88 10/19/21 09:39 Pulse Oximetry 94 10/19/21 09:39 Course Orders Ordered: ED Orders 10/19/21 11:20 EKG-12 Lead Stat 10/19/21 11:40 Complete Blood Count AUTO DIFF Stat Comprehensive Metabolic Panel Stat Lactate (Lactic Acid) Stat Magnesium Stat NT-proBNP (BNP-Adult 18+) Stat Troponin & CK Cardiac Panel Stat 10/19/21 11:55 Blood Culture Stat 10/19/21 12:15 COVID19 -Nasal RAPID/Pre-Proc Stat Discontinued Medications Sodium Chloride (Normal Saline 0.9%) 500 mls @ 1,000 mls/hr IV BOLUS ONE Stop: 10/19/21 11:47 Last Infusion: 10/19/21 12:47 Dose: 0 mls/hr Documented by: Admin: 10/19/21 11:59 Dose: 1,000 mls/hr Documented by: SHILA Vital Signs Vital signs: Vital Signs - 8 hr 10/19/21 11:45 10/19/21 12:00 10/19/21 12:15 Pulse Rate 68 65 74 Respiratory Rate Blood Pressure Pulse Oximetry 97 96 96 10/19/21 12:19 10/19/21 12:30 Pulse Rate 76 87 Respiratory Rate 17 Blood Pressure 106/56 L 107/56 L Pulse Oximetry 96 100 MDM - SOB/Dyspnea Lab Data Result diagrams: 10/19/21 11:40 10/19/21 11:40 Labs: Lab Results 10/19/21 10/19/21 10/19/21 Range/Units 11:40 11:40 11:40 WBC 11.4 H (4.5-11.0) X10^3/uL RBC 4.56 (4.0-5.2) X10^6/uL Hgb 12.9 (12.0-16.0) g/dL Hct 39.3 (36-46) % MCV 86.3 (80-100) fL MCH 28.4 (26-34) PG MCHC 32.9 (30-36) % RDW 15.1 H (11.6-14.8) % Plt Count 212 (150-400) X10^3/uL Neut % (Auto) 75.6 H (50-75) % Lymph % (Auto) 12.1 L (25-40) % [place] % (Auto) 10.1 (3-14) % Eos % (Auto) 1.5 L (2-4) % Baso % (Auto) 0.7 (0-2) % Neut # (Auto) 8600 H (6932-9169) /uL Lymph # (Auto) 1400 (4233-0966) /uL [place] # (Auto) 1200 H (0-900) /uL Eos # (Auto) 200 (0-450) /uL Baso # (Auto) 100 (0-100) /uL Sodium 143 (137-145) mmol/L Potassium 4.3 (3.4-5.1) mmol/L Chloride 106 (98-107) mmol/L Carbon Dioxide 29 (22-32) mmol/L BUN 27 H (7-17) mg/dL Creatinine 1.88 H (0.52-1.04) mg/dL Estimated GFR 28 L (>60) mL/min BUN/Creatinine Ratio 14.4 (6-22) Glucose 97 (80-110) mg/dL Lactate (0.7-2.1) mmol/L Calcium 8.9 (8.4-10.2) mg/dL Magnesium 2.2 (1.6-2.3) mg/dL Total Bilirubin 0.6 (0.2-1.3) mg/dL AST 33 (14-36) IU/L ALT 36 H (<35) IU/L Alkaline Phosphatase 116 (38-126) U/L Total Creatine Kinase 63 (30-135) U/L CK-MB (CK-2) TNP CK-MB (CK-2) Rel Index TNP Troponin I < 0.012 (0.01-0.034) ng/mL NT-Pro-B Natriuret Pep 3410 H (<125) pg/mL Total Protein 8.3 H (6.3-8.2) g/dL Albumin 4.4 (3.5-5.0) g/dL Globulin 3.9 (1.7-4.1) g/dL Albumin/Globulin Ratio 1.1 (1.0-2.8) SARS-CoV-2 (PCR) (Negative) 10/19/21 10/19/21 Range/Units 11:40 12:15 WBC (4.5-11.0) X10^3/uL RBC (4.0-5.2) X10^6/uL Hgb (12.0-16.0) g/dL Hct (36-46) % MCV (80-100) fL MCH (26-34) PG MCHC (30-36) % RDW (11.6-14.8) % Plt Count (150-400) X10^3/uL Neut % (Auto) (50-75) % Lymph % (Auto) (25-40) % [place] % (Auto) (3-14) % Eos % (Auto) (2-4) % Baso % (Auto) (0-2) % Neut # (Auto) (7819-1477) /uL Lymph # (Auto) (6017-5974) /uL [place] # (Auto) (0-900) /uL Eos # (Auto) (0-450) /uL Baso # (Auto) (0-100) /uL Sodium (137-145) mmol/L Potassium (3.4-5.1) mmol/L Chloride (98-107) mmol/L Carbon Dioxide (22-32) mmol/L BUN (7-17) mg/dL Creatinine (0.52-1.04) mg/dL Estimated GFR (>60) mL/min BUN/Creatinine Ratio (6-22) Glucose (80-110) mg/dL Lactate 0.8 (0.7-2.1) mmol/L Calcium (8.4-10.2) mg/dL Magnesium (1.6-2.3) mg/dL Total Bilirubin (0.2-1.3) mg/dL AST (14-36) IU/L ALT (<35) IU/L Alkaline Phosphatase (38-126) U/L Total Creatine Kinase (30-135) U/L CK-MB (CK-2) CK-MB (CK-2) Rel Index Troponin I (0.01-0.034) ng/mL NT-Pro-B Natriuret Pep (<125) pg/mL Total Protein (6.3-8.2) g/dL Albumin (3.5-5.0) g/dL Globulin (1.7-4.1) g/dL Albumin/Globulin Ratio (1.0-2.8) SARS-CoV-2 (PCR) Negative (Negative) Urine Dip Bedside Urine Glucose Negative Bedside Urine Bilirubin - Negative Bedside Urine Ketone - Negative Urine Specific [place] 1.015 Bedside Urine Occult Blood +/- Bedside Urine pH 6.0 Bedside Urine Protein - Negative Bedside Urine Urobilinogen - Negative Bedside Urine Nitrite - Negative Bedside Urine Leukocytes - Negative Esterase Imaging Data Chest x-ray: Radiologist's Impression: [address] [address] XRay Report Signed Patient: Joselyn Prado MR#: [id number] : 1950 Acct:[id number] Age/Sex: 71 / F Date of Service: 10/19/21 Loc: ED Accession Number: [id number] ?? Procedure: XR chest 2V Ordering Provider: J Carlos Enriquez D.O. PROCEDURE:? XR CHEST 2V ? INDICATIONS:? cough ? TECHNIQUE:? 2 views of the chest were acquired.? ? COMPARISON:? [facility], CR, XR CHEST 2V, 11/20/2018, 23:26.? [facility], CR, XR CHEST 1V, 01/30/2018, 22:29.? [facility], CR, XR CHEST 2V, 09/14/2021, 9:45. ? FINDINGS:? ? Surgical changes and devices:? Patient is status post median sternotomy and valvular replacement. ? Lungs and pleura:? Lungs are clear.? No pleural effusions or pneumothorax.? ? Mediastinum:? Mediastinal contours are normal.? Heart size is normal.? ? Bones and chest wall:? No suspicious bony abnormalities.? Soft tissues appear unremarkable.? ? IMPRESSION:? No acute cardiopulmonary findings. ? ? Dictated by: Karo Mercado M.D. on 10/19/2021 at 10:51 ? ? Approved by: Karo Mercado M.D. on 10/19/2021 at 10:52 ? Discharge Plan Departure Patient Disposition: Home Clinical Impression: Pulmonary edema, Acute CHF Instructions: DI for Heart Failure Activity Restrictions/Additional Instructions: *You have been diagnosed with [shortness of breath and fatigue. Of pneumonia and her COVID swab is negative. Labs do suggest that you are slightly fluid overloaded and we will give you a short course of a diuretic (water pill) *What to do: *Please continue to take your regular medications as directed. [ x] New medication prescriptions sent to your pharmacy: [[facility] ] [ ] New medication written as a paper prescription [ ] No new medications given *Please follow up with your primary care provider in 2-3 days, call for an appointment. Let them know you were seen in the Emergency Department and that we ask that you be seen in follow up. We will electronically transmit a record of today's note if your PCP is in our system *If you do not have a primary care provider please contact the [facility] Resource line at [phone]. They will ask some questions about your medical history and help get you set up with a doctor in the community. *Return to Emergency Department if you should have any new, worsening or concerning symptoms, such as [fever greater than 101 F, shaking chills, worsening pain, persistent vomiting or other bothersome symptoms] Prescriptions: New furosemide [Lasix] 20 mg tablet 20 mg PO DAILY Qty: 5 0RF No Action pantoprazole [Protonix] 40 MG tablet,delayed release (DR/EC) 40 mg PO BID Qty: 0 0RF amiodarone 200 MG tablet 200 mg PO QDAY Qty: 0 0RF Label Comments: No longer taking atorvastatin 40 MG tablet 40 mg PO BEDTIME Qty: 0 0RF aspirin 81 MG tablet,delayed release (DR/EC) 81 mg PO QDAY Qty: 0 0RF warfarin [Coumadin] 5 MG tablet 2.5 mg PO QDAY Qty: 0 0RF Label Comments: Takes every day except Monday, On Monday she takes 5mg buspirone 15 MG tablet 15 mg PO BID Qty: 0 0RF cyanocobalamin (vitamin B-12) [Vitamin B-12] 1,000 mcg Tablet 1,000 mcg PO DAILY 0RF folic acid 400 mcg Tablet 400 mcg PO DAILY 0RF acetaminophen [Acetaminophen Extra Strength] 500 mg Tablet 1,000 mg PO Q6H PRN (Reason: Pain (Scale Score 1-3)) 0RF alprazolam 0.5 mg Tablet 0.5 mg PO DAILY PRN (Reason: Anxiety) 0RF losartan 25 mg Tablet 12.5 mg PO DAILY 0RF furosemide [Lasix] 20 mg Tablet 40 mg PO BID 0RF fluticasone propionate 50 mcg/actuation [place],Suspension 1 spray INTRANASAL BID PRN (Reason: Nasal Congestion) 0RF albuterol sulfate [Ventolin HFA] 90 mcg/actuation Hfa Aerosol Inhaler 2 puff INH RTQ4HR PRN (Reason: Shortness Of Breath) Qty: 1 0RF fluoxetine 40 mg capsule 60 mg PO DAILY 0RF allopurinol 300 mg tablet 150 mg PO DAILY 0RF metoprolol succinate 50 mg tablet extended release 24 hr 75 mg PO BID 0RF Label Comments: take 1 tablet by mouth twice a day DO NOT CRUSH OR CHEW warfarin 5 mg tablet 5 mg PO WEEKLY 0RF Label Comments: Takes 5 MG on Tuesdays only ferrous sulfate 325 mg (65 mg iron) tablet 325 mg PO DAILY Qty: 60 0RF Referrals: Mitchel Quiroz DO [Primary Care Provider] -
[2021-10-19 11:55] LABS: Add Manual Diff / Slide Review NO; Basophils Absolute Auto 100 /uL (0-100); Basophils Percent Auto 0.7 % (0-2); Eosinophils Absolute Auto 200 /uL (0-450); Eosinophils Percent Auto 1.5 % (2-4); Hematocrit 39.3 % (36-46); Hemoglobin 12.9 g/dL (12.0-16.0); Lymphocytes Absolute Auto 1400 /uL (1100-4500); Lymphocytes Percent Auto 12.1 % (25-40); Mean Corpuscular HGB Conc 32.9 % (30-36); Mean Corpuscular Hemoglobin 28.4 PG (26-34); Mean Corpuscular Volume 86.3 fL (80-100); Monocytes Absolute Auto 1200 /uL (0-900); Monocytes Percent Auto 10.1 % (3-14); Neutrophils Absolute Auto 8600 /uL (1500-7000); Neutrophils Percent Auto 75.6 % (50-75); Platelet Count 212 X10^3/uL (150-400); Red Blood Cell Count 4.56 X10^6/uL (4.0-5.2); Red Cell Distribution Width 15.1 % (11.6-14.8); White Blood Cell Count 11.4 X10^3/uL (4.5-11.0)
[2021-10-19] MEDS: SODIUM CHLORIDE 0.9% 500 ML 1000 ML IV (11:59)
[2021-10-19 12:10] LABS: Creatine Kinase 63 U/L (30-135); Lactate (Lactic Acid) 0.8 mmol/L (0.7-2.1); Magnesium 2.2 mg/dL (1.6-2.3)
[2021-10-19 12:11] LABS: Alanine Aminotransferase 36 IU/L (<35); Albumin 4.4 g/dL (3.5-5.0); Albumin Globulin Ratio 1.1 (1.0-2.8); Alkaline Phosphatase 116 U/L (38-126); Aspartate Aminotransferase 33 IU/L (14-36); BUN Creatinine Ratio 14.4 (6-22); Bilirubin Total 0.6 mg/dL (0.2-1.3); Blood Urea Nitrogen 27 mg/dL (7-17); Calcium 8.9 mg/dL (8.4-10.2); Carbon Dioxide 29 mmol/L (22-32); Chloride 106 mmol/L (98-107); Estimated Glomerular Filt Rate 28 mL/min (>60); Globulin 3.9 g/dL (1.7-4.1); Glucose 97 mg/dL (80-110); HEMOLYSIS < 15 (0-50); Potassium 4.3 mmol/L (3.4-5.1); Sodium 143 mmol/L (137-145); Total Protein 8.3 g/dL (6.3-8.2)
[2021-10-19 12:21] LABS: NT-proBNP (BNP-Adult 18+) 3410 pg/mL (<125); Troponin I < 0.012 ng/mL (0.01-0.034)
[2021-10-19 12:36] LABS: COVID19 -Nasal RAPID Negative (Negative)
== END 2021-10-19 13:19 | disposition home or self-care (01) ==
PROVIDERS: Emergency Provider Emergency Medicine; Family Provider Family Medicine; PCP Family Medicine
DX: I13.0 Hypertensive heart and chronic kidney disease with heart failure and stage 1 through stage 4 chronic kidney disease, or unspecified chronic kidney disease (principal); I50.1 Left ventricular failure, unspecified; N18.9 Chronic kidney disease, unspecified; Z20.822 Contact with and (suspected) exposure to COVID-19
CPT/HCPCS: 36415; 71046; 80053; 81003; 82550; 83605; 83735; 83880; 84484; 85025; 87040; 87635; 96360; 99284; C9803

== ENCOUNTER 2021-10-26 14:23 | Emergency (ER) | payer MEDICARE, OTHER, SELFPAY ==
[2020-02-15 18:02] VITALS: BMI 34.0
[2021-10-26 14:25] VITALS: BP 120/58; PULSE 85; RESP 18; TEMP 36.6; O2SAT 96; BMI 34.2
--- NOTE | 2021-10-26 18:49 | DI.RAD.S_ITS ---
PROCEDURE: XR RIBS LT MIN 3V W CXR1V INDICATIONS: fall - chest pain TECHNIQUE: Two views of the left ribs were acquired, along with a single view chest. COMPARISON: [facility], , XR CHEST 1 VIEW, 10/20/2021, 11:56. FINDINGS: Surgical changes and devices: Median sternotomy wires are present and appear intact. Prior valvular replacement procedures, unchanged. Bones and chest wall: Suspected nondisplaced lateral left 10th rib fracture.. No suspicious bony lesions. Overlying soft tissues appear unremarkable. Lungs and pleura: No pleural effusions or pneumothorax. Lungs appear clear. Mediastinum: Mediastinal contours appear normal. Heart size is normal. IMPRESSION: Possible nondisplaced lateral left 10th rib fracture. No pneumothorax. No acute cardiopulmonary abnormalities. Dictated by: Hunter Schulz M.D. on 10/26/2021 at 20:02 Approved by: Hunter Schulz M.D. on 10/26/2021 at 20:06
--- NOTE | 2021-10-26 18:50 | ED.BACK ---
HPI - Back Pain/Injury <James Ziegler PA-C - Last Filed: 10/26/21 19:58> General Chief Complaint: Back Pain/Injury Stated Complaint: chest pain- fall yesterday Time Seen by Provider: 10/26/21 18:44 Source: patient History of Present Illness HPI Narrative: Patient is a 71-year-old female who presents to the ED complaining of left-sided chest pain. She states that she fell yesterday evening while trying to walk through a baby gate tripped over the threshold and fell forward. She landed on her left side on the floor. She noticed today that she has some bruising and it has a lot of pain with breathing deeply. She states that when she coughs she has severe pain over her left chest. She also states she has a history of congestive heart failure she has been on diuretics and has noticed some increased weight gain over the last couple of days. She is concerned about her fluid levels. And is requesting to have this checked. Patient denies any nausea vomiting or diarrhea. No reported fever body aches or chills. No reported exposure. No loss of consciousness reported. Related Data Home Medications Medication Instructions Recorded Confirmed amiodarone 200 mg tablet 200 mg PO QDAY #0 11/26/16 02/15/20 aspirin 81 mg tablet,delayed 81 mg PO QDAY #0 11/26/16 02/15/20 release atorvastatin 40 mg tablet 40 mg PO BEDTIME #0 11/26/16 02/15/20 buspirone 15 mg tablet 15 mg PO BID #0 11/26/16 02/15/20 pantoprazole 40 mg tablet,delayed 40 mg PO BID #0 11/26/16 02/15/20 release (Protonix) warfarin 5 mg tablet (Coumadin) 2.5 mg PO QDAY #0 11/26/16 02/15/20 acetaminophen 500 mg tablet 1,000 mg PO Q6H PRN 10/28/17 02/15/20 (Acetaminophen Extra Strength) alprazolam 0.5 mg tablet 0.5 mg PO DAILY PRN 10/28/17 02/15/20 cyanocobalamin (vitamin B-12) 1,000 mcg PO DAILY 10/28/17 02/15/20 1,000 mcg tablet (Vitamin B-12) fluticasone propionate 50 1 spray INTRANASAL BID PRN 10/28/17 02/15/20 mcg/actuation nasal spray,suspension folic acid 400 mcg tablet 400 mcg PO DAILY 10/28/17 02/15/20 furosemide 20 mg tablet (Lasix) 40 mg PO BID 10/28/17 02/15/20 losartan 25 mg tablet 12.5 mg PO DAILY 10/28/17 02/15/20 fluoxetine 40 mg capsule 60 mg PO DAILY 07/24/18 02/15/20 allopurinol 300 mg tablet 150 mg PO DAILY 03/28/19 02/15/20 metoprolol succinate 50 mg 75 mg PO BID 03/28/19 02/15/20 tablet,extended release 24 hr warfarin 5 mg tablet 5 mg PO WEEKLY 03/28/19 02/15/20 Previous Rx's Medication Instructions Recorded albuterol sulfate 90 mcg/actuation 2 puff INH RTQ4HR PRN #1 g 10/31/17 aerosol inhaler (Ventolin HFA) ferrous sulfate 325 mg (65 mg 325 mg PO DAILY #60 tab 02/17/20 iron) tablet furosemide 20 mg tablet (Lasix) 20 mg PO DAILY #5 tab 10/19/21 hydrocodone 5 mg-acetaminophen 325 1 tab PO QID PRN #10 tab 10/26/21 mg tablet ondansetron 4 mg disintegrating 4 mg PO Q6H PRN #10 tab 10/26/21 tablet Allergies Allergy/AdvReac Type Severity Reaction Status Date / Time shellfish derived Allergy Mild HIVES Verified 10/19/21 09:44 [SHELLFISH DERIVED] azithromycin [AZITHROMYCIN] Allergy Unknown SWOLLEN Verified 10/19/21 09:44 LIPS diltiazem [From CARDIZEM] Allergy Unknown HEART BLOCK Verified 10/19/21 09:44 trazodone [TRAZODONE] Allergy Unknown STOP Verified 10/19/21 09:44 BREATHING doxycycline [DOXYCYCLINE] AdvReac Mild STOMACH Verified 10/19/21 09:44 UPSET Review of Systems <James Ziegler PA-C - Last Filed: 10/26/21 19:58> Review of Systems ROS Unobtainable: All systems reviewed & are unremarkable except as noted in HPI and below Constitutional Constitutional: Denies chills, Denies fatigue, Denies fever(s), Denies frequent falls, Denies lethargy and Denies weakness Eyes Eyes: Denies change in vision, Denies eye discharge, Denies irritation and Denies loss of vision ENT Ears, Nose, Mouth, and Throat: Denies change in voice, Denies dizziness, Denies neck pain, Denies sore throat and Denies throat swelling Cardiovascular Cardiovascular: Reports chest pain, Denies irregular heart rhythm, Denies lightheadedness, Denies palpitations, Denies dyspnea, Denies dyspnea on exertion and Denies orthopnea Respiratory Respiratory: Denies cough, Denies dyspnea, Denies dyspnea on exertion and Denies wheezing Gastrointestinal Gastrointestinal: Denies abdominal pain, Denies change in bowel habits, Denies diarrhea, Denies nausea and Denies vomiting Genitourinary Genitourinary: Denies hematuria, Denies flank pain, Denies urinary incontinence and Denies urinary urgency Musculoskeletal Musculoskeletal: Denies back pain, Denies muscle weakness, Denies neck pain, Denies numbness and Denies tingling Integumentary/Breasts Skin/Breast: Denies pruritus, Denies erythema, Denies rash and Denies wounds Neurologic Neurologic: Denies behavioral changes, Denies confusion, Denies dizziness, Denies frequent falls, Denies loss of vision, Denies numbness, Denies tingling and Denies weakness Psychiatric Psychiatric: Denies anxiety, Denies behavioral changes, Denies confusion, Denies depression, Denies homicidal ideation and Denies suicidal ideation Endocrine Endocrine: Denies fatigue, Denies flushing and Denies palpitations Hematologic/Lymphatic Hematologic/Lymphatic: Denies easy bruising Allergic/Immunologic Allergic/Immunologic: Denies urticaria, Denies throat swelling and Denies wheezing Patient History <James Ziegler PA-C - Last Filed: 10/26/21 19:58> Medical History (Updated 10/26/21 @ 21:00 by Sybil Christianson DO) Afib Anemia aplastic aregenerative CAD (coronary atherosclerotic disease) Chronic renal failure Depression Endocarditis Hemolytic anemia Hyperlipemia Migraine SUPERFICIAL LACERATION OF TONGUE Surgical History H/O prosthetic aortic valve replacement Hx of CABG Mitral valve replaced Social History household members: family and children Smoking Status: Never smoker alcohol intake: never additional social history: Past Medical History 1. Rheumatic heart disease. 2. CAD. 3. Hypertension. 4. Depression. 5. Panic disorder. 6. Hiatal hernia. 7. Migraines. 8. Carotid stenosis. 9. Osteopenia. 10. Osteoarthritis. 11. Hyperlipidemia. 12. PAF. 13. Hemolytic anemia 14. Chronic kidney disease. Past Surgical History 1. Aortic and mitral valve replacement. 2. CABG x1. 3. Tubal ligation. 4. Hemorrhagic 2. 5. Transfemoral cath with mitral valve implantation. October 2016. 6. Transvenous pacemaker placement. October 2016. 7. Right femoral vein closure October 2016. Smoking Status: Never smoker alcohol intake frequency: holidays/special occasions only Substance Use Type: marijuana and other Exam <MAYELIN Pruitt Last Filed: 10/26/21 19:58> Initial Vital Signs Initial Vital Signs: Vital Signs Temperature 97.8 F 10/26/21 14:25 Pulse Rate 85 10/26/21 14:25 Respiratory Rate 18 10/26/21 14:25 Blood Pressure 120/58 L 10/26/21 14:25 Pulse Oximetry 96 10/26/21 14:25 Const General: cooperative, healthy appearing, comfortable and well developed Nutritional Appearance: average body habitus Orientation: Orientation [facility] Head: normal to inspection, normocephalic and atraumatic Ears: hearing grossly normal bilaterally and external ears normal Nose: external nose normal Face and sinus: normal facial exam Chest Chest: localized rib tenderness with anteroposterior compression Resp Effort & Inspection: normal respiratory effort and able to speak in complete sentences Auscultation: clear to auscultation bilaterally Percussion: percussion normal Cardio Palpation: normal PMI Rate: regular rate Rhythm: regular rhythm Skin General: no rashes or lesions noted Neuro General: patient alert, patient awake, patient oriented x3, moves all extremities and CN's II-XI intact bilaterally <Sybil Christianson DO - Last Filed: 10/27/21 03:24> Initial Vital Signs Initial Vital Signs: Vital Signs Temperature 97.8 F 10/26/21 14:25 Pulse Rate 85 10/26/21 14:25 Respiratory Rate 18 10/26/21 14:25 Blood Pressure 120/58 L 10/26/21 14:25 Pulse Oximetry 96 10/26/21 14:25 Course <MAYELIN Pruitt Last Filed: 10/26/21 19:58> Orders Ordered: ED Orders 10/26/21 18:49 XR ribs LT min 3V w CXR1V Stat 10/26/21 19:45 BNP [NT-proBNP (BNP-Adult 18+)] Stat CBC Auto Diff [Complete Blood Count AUTO DIFF] Stat CMP [Comprehensive Metabolic Panel] Stat Prothrombin Time INR Stat cardiac panel [Troponin & CK Cardiac Panel] Stat Discontinued Medications Hydrocodone Bitart/Acetaminophen (Hydrocodone/Acet 5/325 Prepack) 1 bottle MISC SEEINSTR ONE Stop: 10/26/21 21:49 Last Admin: 10/26/21 21:56 Dose: 1 bottle Documented by: CAMILLE Ketorolac Tromethamine (Ketorolac 30 Mg/Ml Vial) 30 mg IV NOW ONE Stop: 10/26/21 18:50 Last Admin: 10/26/21 19:43 Dose: 30 mg Documented by: BRENNA Vital Signs Vital signs: Vital Signs - 8 hr 10/26/21 21:42 Pulse Rate 88 Respiratory Rate 18 Blood Pressure 136/79 Pulse Oximetry 97 <Sybil Christianson DO - Last Filed: 10/27/21 03:24> Orders Ordered: ED Orders 10/26/21 18:49 XR ribs LT min 3V w CXR1V Stat 10/26/21 19:45 BNP [NT-proBNP (BNP-Adult 18+)] Stat CBC Auto Diff [Complete Blood Count AUTO DIFF] Stat CMP [Comprehensive Metabolic Panel] Stat Prothrombin Time INR Stat cardiac panel [Troponin & CK Cardiac Panel] Stat Discontinued Medications Hydrocodone Bitart/Acetaminophen (Hydrocodone/Acet 5/325 Prepack) 1 bottle MISC SEEINSTR ONE Stop: 10/26/21 21:49 Last Admin: 10/26/21 21:56 Dose: 1 bottle Documented by: CAMILLE Ketorolac Tromethamine (Ketorolac 30 Mg/Ml Vial) 30 mg IV NOW ONE Stop: 10/26/21 18:50 Last Admin: 10/26/21 19:43 Dose: 30 mg Documented by: BRENNA Vital Signs Vital signs: Vital Signs - 8 hr 10/26/21 21:42 Pulse Rate 88 Respiratory Rate 18 Blood Pressure 136/79 Pulse Oximetry 97 MDM - Back Pain/Injury <James Ziegler PA-C - Last Filed: 10/26/21 19:58> Lab Data Result diagrams: 10/26/21 19:45 10/26/21 19:45 Labs: Lab Results 10/26/21 10/26/21 10/26/21 Range/Units 19:45 19:45 19:45 WBC 9.0 (4.5-11.0) X10^3/uL RBC 4.44 (4.0-5.2) X10^6/uL Hgb 12.4 (12.0-16.0) g/dL Hct 38.4 (36-46) % MCV 86.3 (80-100) fL MCH 27.9 (26-34) PG MCHC 32.3 (30-36) % RDW 14.4 (11.6-14.8) % Plt Count 335 (150-400) X10^3/uL Neut % (Auto) 74.1 (50-75) % Lymph % (Auto) 14.1 L (25-40) % [place] % (Auto) 9.6 (3-14) % Eos % (Auto) 1.7 L (2-4) % Baso % (Auto) 0.5 (0-2) % Neut # (Auto) 6700 (1643-9991) /uL Lymph # (Auto) 1300 (5556-4002) /uL [place] # (Auto) 900 (0-900) /uL Eos # (Auto) 200 (0-450) /uL Baso # (Auto) 0 (0-100) /uL PT 31.1 H (10.1-12.7) SECONDS INR 2.7 H (0.9-1.3) Sodium 143 (137-145) mmol/L Potassium 3.8 (3.4-5.1) mmol/L Chloride 106 (98-107) mmol/L Carbon Dioxide 25 (22-32) mmol/L BUN 34 H (7-17) mg/dL Creatinine 1.76 H (0.52-1.04) mg/dL Estimated GFR 31 L (>60) mL/min BUN/Creatinine Ratio 19.3 (6-22) Glucose 115 H (80-110) mg/dL Calcium 8.9 (8.4-10.2) mg/dL Total Bilirubin 0.6 (0.2-1.3) mg/dL AST 34 (14-36) IU/L ALT 30 (<35) IU/L Alkaline Phosphatase 123 (38-126) U/L Total Creatine Kinase 225 H (30-135) U/L CK-MB (CK-2) 1.22 (<2.37) ng/mL CK-MB (CK-2) Rel Index 0.5 L (1.5-5.0) % Troponin I < 0.012 (0.01-0.034) ng/mL NT-Pro-B Natriuret Pep 2750 H (<125) pg/mL Total Protein 8.5 H (6.3-8.2) g/dL Albumin 4.3 (3.5-5.0) g/dL Globulin 4.2 H (1.7-4.1) g/dL Albumin/Globulin Ratio 1.0 (1.0-2.8) <Sybil Christianson, DO - Last Filed: 10/27/21 03:24> Lab Data Labs: Lab Results 10/26/21 10/26/21 10/26/21 Range/Units 19:45 19:45 19:45 WBC 9.0 (4.5-11.0) X10^3/uL RBC 4.44 (4.0-5.2) X10^6/uL Hgb 12.4 (12.0-16.0) g/dL Hct 38.4 (36-46) % MCV 86.3 (80-100) fL MCH 27.9 (26-34) PG MCHC 32.3 (30-36) % RDW 14.4 (11.6-14.8) % Plt Count 335 (150-400) X10^3/uL Neut % (Auto) 74.1 (50-75) % Lymph % (Auto) 14.1 L (25-40) % [place] % (Auto) 9.6 (3-14) % Eos % (Auto) 1.7 L (2-4) % Baso % (Auto) 0.5 (0-2) % Neut # (Auto) 6700 (6817-9560) /uL Lymph # (Auto) 1300 (2464-2057) /uL [place] # (Auto) 900 (0-900) /uL Eos # (Auto) 200 (0-450) /uL Baso # (Auto) 0 (0-100) /uL PT 31.1 H (10.1-12.7) SECONDS INR 2.7 H (0.9-1.3) Sodium 143 (137-145) mmol/L Potassium 3.8 (3.4-5.1) mmol/L Chloride 106 (98-107) mmol/L Carbon Dioxide 25 (22-32) mmol/L BUN 34 H (7-17) mg/dL Creatinine 1.76 H (0.52-1.04) mg/dL Estimated GFR 31 L (>60) mL/min BUN/Creatinine Ratio 19.3 (6-22) Glucose 115 H (80-110) mg/dL Calcium 8.9 (8.4-10.2) mg/dL Total Bilirubin 0.6 (0.2-1.3) mg/dL AST 34 (14-36) IU/L ALT 30 (<35) IU/L Alkaline Phosphatase 123 (38-126) U/L Total Creatine Kinase 225 H (30-135) U/L CK-MB (CK-2) 1.22 (<2.37) ng/mL CK-MB (CK-2) Rel Index 0.5 L (1.5-5.0) % Troponin I < 0.012 (0.01-0.034) ng/mL NT-Pro-B Natriuret Pep 2750 H (<125) pg/mL Total Protein 8.5 H (6.3-8.2) g/dL Albumin 4.3 (3.5-5.0) g/dL Globulin 4.2 H (1.7-4.1) g/dL Albumin/Globulin Ratio 1.0 (1.0-2.8) Imaging Data rib xrays: Radiologist's Impression: [address] [address] XRay Report Signed Patient: Joselyn Prado MR#: [id number] : 1950 Acct:[id number] Age/Sex: 71 / F Date of Service: 10/26/21 Loc: ED Accession Number: [id number] ?? Procedure: XR ribs LT min 3V w CXR1V Ordering Provider: James Ziegler P.A-C PROCEDURE:? XR RIBS LT MIN 3V W CXR1V ? INDICATIONS:? fall - chest pain ? TECHNIQUE:? Two views of the left ribs were acquired, along with a single view chest.? ? COMPARISON:? [facility], CR, XR CHEST 1 VIEW, 10/20/2021, 11:56. ? FINDINGS:? ? Surgical changes and devices: ? Median sternotomy wires are present and appear intact.? Prior valvular replacement procedures, unchanged.? ? Bones and chest wall:? Suspected nondisplaced lateral left 10th rib fracture..? No suspicious bony lesions.? Overlying soft tissues appear unremarkable.? ? Lungs and pleura:? No pleural effusions or pneumothorax.? Lungs appear clear.? ? Mediastinum:? Mediastinal contours appear normal.? Heart size is normal.? ? IMPRESSION:? Possible nondisplaced lateral left 10th rib fracture.? No pneumothorax.? No acute cardiopulmonary abnormalities. ? ? Dictated by: Hunter Schulz M.D. on 10/26/2021 at 20:02 ? ? Approved by: Hunter Schulz M.D. on 10/26/2021 at 20:06?? MDM Narrative Medical decision making narrative: Mank: This is a 71-year-old female who is anticoagulated with warfarin who had a ground level fall yesterday. Patient has bruising and tenderness over her left ribs. She has what appears to be a single left 10th rib fracture. Patient did notice a little bit of waking she has not really had a whole lot of increasing shortness of breath but does have pain with deep inhalation. She was initially seen by our JOSSIE Ziegler. Patient was then seen and evaluated independently by myself, agree with the above exam findings. Patient's labs and imaging were reviewed. At this time plan for incentive spirometer, pain control patient continue her home medications. Hemoglobin is stable with no drops or changes. Electrolytes and renal function appear appropriate, troponin is negative and BNP is elevated but consistent with last visit. After discussion with patient I would not increase her Lasix at this time. Discussed with patient she feels comfortable with this plan. Plan for her to follow-up in the next week with her primary care for re-evaluation. She notes that she has tolerated Tylenol with codeine and hydrocodone in the past but has had nausea and vomiting with Percocet. Discharge Plan Departure Patient Disposition: Home Clinical Impression: Closed rib fracture Activity Restrictions/Additional Instructions: Follow-up with your physician in the next week for recheck. Do not find a wrap your ribs. Use incentive spirometer once hourly while awake. You may take antinausea medication 1 tablet 20 minutes prior to pain medication if it makes you feel nauseated. You may take pain medication as prescribed. This medication can make you sleepy do not drive, perform hazardous activities or make any major decisions while taking it. This medication will make you constipated please take a stool softener once to twice daily until stools are soft and regular. Prescription sent to [facility] in [place] Please return for rapidly worsening pain, passing out, coughing up blood, new chest pain or shortness of breath, increasing area of bruising or hematoma or other new or concerning symptoms. Prescriptions: New hydrocodone-acetaminophen 5-325 mg tablet 1 tab PO QID PRN (Reason: pain) Qty: 10 0RF ondansetron 4 mg tablet,disintegrating 4 mg PO Q6H PRN (Reason: nausea and vomiting) Qty: 10 0RF No Action pantoprazole [Protonix] 40 MG tablet,delayed release (DR/EC) 40 mg PO BID Qty: 0 0RF amiodarone 200 MG tablet 200 mg PO QDAY Qty: 0 0RF Label Comments: No longer taking atorvastatin 40 MG tablet 40 mg PO BEDTIME Qty: 0 0RF aspirin 81 MG tablet,delayed release (DR/EC) 81 mg PO QDAY Qty: 0 0RF warfarin [Coumadin] 5 MG tablet 2.5 mg PO QDAY Qty: 0 0RF Label Comments: Takes every day except Monday, On Monday she takes 5mg buspirone 15 MG tablet 15 mg PO BID Qty: 0 0RF cyanocobalamin (vitamin B-12) [Vitamin B-12] 1,000 mcg Tablet 1,000 mcg PO DAILY 0RF folic acid 400 mcg Tablet 400 mcg PO DAILY 0RF acetaminophen [Acetaminophen Extra Strength] 500 mg Tablet 1,000 mg PO Q6H PRN (Reason: Pain (Scale Score 1-3)) 0RF alprazolam 0.5 mg Tablet 0.5 mg PO DAILY PRN (Reason: Anxiety) 0RF losartan 25 mg Tablet 12.5 mg PO DAILY 0RF furosemide [Lasix] 20 mg Tablet 40 mg PO BID 0RF fluticasone propionate 50 mcg/actuation [place],Suspension 1 spray INTRANASAL BID PRN (Reason: Nasal Congestion) 0RF albuterol sulfate [Ventolin HFA] 90 mcg/actuation Hfa Aerosol Inhaler 2 puff INH RTQ4HR PRN (Reason: Shortness Of Breath) Qty: 1 0RF fluoxetine 40 mg capsule 60 mg PO DAILY 0RF furosemide [Lasix] 20 mg tablet 20 mg PO DAILY Qty: 5 0RF allopurinol 300 mg tablet 150 mg PO DAILY 0RF metoprolol succinate 50 mg tablet extended release 24 hr 75 mg PO BID 0RF Label Comments: take 1 tablet by mouth twice a day DO NOT CRUSH OR CHEW warfarin 5 mg tablet 5 mg PO WEEKLY 0RF Label Comments: Takes 5 MG on Tuesdays only ferrous sulfate 325 mg (65 mg iron) tablet 325 mg PO DAILY Qty: 60 0RF Referrals: Mitchel Quiroz DO [Primary Care Provider] - <Sybil Christianson DO - Last Filed: 10/27/21 03:24> Cosign ED Attending Cosignature Attestation: I was immediately available in the department for consultation. Patient was signed out to myself. Patient seen and independently evaluated.
[2021-10-26] MEDS: KETOROLAC 30 MG/ML VIAL IV (19:43)
[2021-10-26 20:10] LABS: Add Manual Diff / Slide Review NO; Basophils Absolute Auto 0 /uL (0-100); Basophils Percent Auto 0.5 % (0-2); Eosinophils Absolute Auto 200 /uL (0-450); Eosinophils Percent Auto 1.7 % (2-4); Hematocrit 38.4 % (36-46); Hemoglobin 12.4 g/dL (12.0-16.0); Lymphocytes Absolute Auto 1300 /uL (1100-4500); Lymphocytes Percent Auto 14.1 % (25-40); Mean Corpuscular HGB Conc 32.3 % (30-36); Mean Corpuscular Hemoglobin 27.9 PG (26-34); Mean Corpuscular Volume 86.3 fL (80-100); Monocytes Absolute Auto 900 /uL (0-900); Monocytes Percent Auto 9.6 % (3-14); Neutrophils Absolute Auto 6700 /uL (1500-7000); Neutrophils Percent Auto 74.1 % (50-75); Platelet Count 335 X10^3/uL (150-400); Red Blood Cell Count 4.44 X10^6/uL (4.0-5.2); Red Cell Distribution Width 14.4 % (11.6-14.8)
[2021-10-26 20:22] LABS: Alanine Aminotransferase 30 IU/L (<35); Albumin 4.3 g/dL (3.5-5.0); Alkaline Phosphatase 123 U/L (38-126); Aspartate Aminotransferase 34 IU/L (14-36); BUN Creatinine Ratio 19.3 (6-22); Bilirubin Total 0.6 mg/dL (0.2-1.3); Blood Urea Nitrogen 34 mg/dL (7-17); Calcium 8.9 mg/dL (8.4-10.2); Carbon Dioxide 25 mmol/L (22-32); Chloride 106 mmol/L (98-107); Creatine Kinase 225 U/L (30-135); Estimated Glomerular Filt Rate 31 mL/min (>60); Globulin 4.2 g/dL (1.7-4.1); Glucose 115 mg/dL (80-110); HEMOLYSIS < 15 (0-50); Potassium 3.8 mmol/L (3.4-5.1); Sodium 143 mmol/L (137-145); Total Protein 8.5 g/dL (6.3-8.2)
[2021-10-26 20:34] LABS: NT-proBNP (BNP-Adult 18+) 2750 pg/mL (<125); Troponin I < 0.012 ng/mL (0.01-0.034)
[2021-10-26 20:37] LABS: CKMB % Relative Index 0.5 % (1.5-5.0); Creatine Kinase MB 1.22 ng/mL (<2.37)
[2021-10-26 21:09] LABS: INR 2.7 (0.9-1.3); Prothrombin Time 31.1 SECONDS (10.1-12.7)
[2021-10-26 21:42] VITALS: BP 136/79; PULSE 88; RESP 18; O2SAT 97
[2021-10-26] MEDS: HYDROCODONE/ACET 5/325 PREPACK 1 BOTTLE MISC (21:56)
== END 2021-10-26 21:56 | disposition home or self-care (01) ==
PROVIDERS: Physician Assistant; Emergency Provider Emergency Medicine; Family Provider Family Medicine; PCP Family Medicine
DX: S22.32XA Fracture of one rib, left side, initial encounter for closed fracture (principal); W18.30XA Fall on same level, unspecified, initial encounter; I50.9 Heart failure, unspecified
CPT/HCPCS: 36415; 71101; 80053; 82550; 82553; 83880; 84484; 85025; 85610; 93005; 93010; 96374; 99284; J1885

== ENCOUNTER 2021-11-07 08:01 | Emergency (ER) | payer MEDICARE, OTHER, SELFPAY ==
[2020-02-15 18:02] VITALS: BMI 34.0
[2021-11-07] VITALS (16 sets, daily range): BP systolic 96–138; BP diastolic 56–75; PULSE 78–91; RESP 16–34; TEMP 37.2; O2SAT 92–98; BMI 33.0
--- NOTE | 2021-11-07 08:40 | DI.RAD.S_ITS ---
PROCEDURE: XR CHEST 1V INDICATIONS: chest pain TECHNIQUE: One view of the chest was acquired. COMPARISON: [facility], CR, XR CHEST 2V, 09/14/2021, 9:45. [facility], CR, XR CHEST 1V, 03/05/2021, 16:17. [facility], CR, XR CHEST 2V, 11/20/2018, 23:26. [facility], CR, XR CHEST 1 VIEW, 10/20/2021, 11:56. [facility], CR, XR CHEST 2V, 10/19/2021, 10:14. FINDINGS: Surgical changes and devices: Sternotomy wires, mediastinal clips, and cardiac valve prostheses can be seen. Lungs and pleura: On this semiupright portable chest examination, no large pneumothorax or large pleural effusions are seen. Mild generalized interstitial prominence can be seen. Mediastinum: Mediastinal contours appear normal. Heart size is mildly enlarged. Atherosclerotic calcification of the aortic arch is noted. Bones and chest wall: No suspicious bony lesions. Age-appropriate bony degenerative changes are seen. Overlying soft tissues appear unremarkable. IMPRESSION: Cardiomegaly and mild generalized interstitial prominence. Please consider early/mild CHF. Postoperative and degenerative changes are seen. Dictated by: David Charles M.D. on 11/07/2021 at 8:35 Approved by: David Charles M.D. on 11/07/2021 at 8:37
[2021-11-07 08:55] LABS: Add Manual Diff / Slide Review NO; Basophils Absolute Auto 0 /uL (0-100); Basophils Percent Auto 0.3 % (0-2); Eosinophils Absolute Auto 200 /uL (0-450); Hematocrit 37.2 % (36-46); Hemoglobin 11.9 g/dL (12.0-16.0); Lymphocytes Absolute Auto 800 /uL (1100-4500); Lymphocytes Percent Auto 7.4 % (25-40); Mean Corpuscular Hemoglobin 27.9 PG (26-34); Mean Corpuscular Volume 87.2 fL (80-100); Monocytes Absolute Auto 700 /uL (0-900); Monocytes Percent Auto 6.6 % (3-14); Neutrophils Absolute Auto 8700 /uL (1500-7000); Neutrophils Percent Auto 83.7 % (50-75); Platelet Count 362 X10^3/uL (150-400); Red Blood Cell Count 4.26 X10^6/uL (4.0-5.2); Red Cell Distribution Width 15.1 % (11.6-14.8); White Blood Cell Count 10.4 X10^3/uL (4.5-11.0)
[2021-11-07 09:01] LABS: Alanine Aminotransferase 30 IU/L (<35); Alkaline Phosphatase 112 U/L (38-126); Aspartate Aminotransferase 36 IU/L (14-36); BUN Creatinine Ratio 12.4 (6-22); Bilirubin Total 0.4 mg/dL (0.2-1.3); Blood Urea Nitrogen 23 mg/dL (7-17); Calcium 8.3 mg/dL (8.4-10.2); Carbon Dioxide 26 mmol/L (22-32); Chloride 108 mmol/L (98-107); Creatine Kinase 134 U/L (30-135); Estimated Glomerular Filt Rate 29 mL/min (>60); Globulin 4.1 g/dL (1.7-4.1); Glucose 98 mg/dL (80-110); HEMOLYSIS < 15 (0-50); Lipase 130 U/L (23-300); Potassium 4.1 mmol/L (3.4-5.1); Sodium 140 mmol/L (137-145); Total Protein 8.1 g/dL (6.3-8.2)
[2021-11-07] MEDS: SODIUM CHLORIDE 0.9% 1,000 ML 150 ML IV (09:11)
[2021-11-07] MEDS: ONDANSETRON 4 MG/2 ML INJ IV (09:11)
[2021-11-07 09:13] LABS: NT-proBNP (BNP-Adult 18+) 2560 pg/mL (<125); Troponin I 0.013 ng/mL (0.01-0.034)
[2021-11-07 09:16] LABS: CKMB % Relative Index 1.7 % (1.5-5.0); Creatine Kinase MB 2.22 ng/mL (<2.37)
--- NOTE | 2021-11-07 09:19 | ED.NAVMDI ---
HPI - Nausea/Vomiting/Diarrhea General Chief complaint: Nausea/Vomiting/Diarrhea Stated complaint: D/N x2 days Time Seen by Provider: 11/07/21 08:24 Source: patient and family Mode of arrival: Wheelchair History of Present Illness HPI Narrative: Patient is a 71-year-old female with history of anemia, mitral valve replacement, renal insufficiency, congestive heart failure presenting today with diarrhea. She says she has had about 24 hours of diarrhea and nausea. It is nonbloody. She has had at least 4 episodes of loose stool. She has got some incontinence. She denies any recent antibiotic use or recent hospitalization. She has some mild cramping in her stomach. She has some nausea but no actual vomiting. She also says that she has some shortness of breath with exertion she has congestive heart failure normally taking 80 mg of Lasix daily. However after discussing it with her physician decrease her Lasix to 40 mg she is supposed to start 40 mg today but has not yet taken any. She denies any chest pain. Related Data Home Medications Medication Instructions Recorded Confirmed amiodarone 200 mg tablet 200 mg PO QDAY #0 11/26/16 02/15/20 aspirin 81 mg tablet,delayed 81 mg PO QDAY #0 11/26/16 02/15/20 release atorvastatin 40 mg tablet 40 mg PO BEDTIME #0 11/26/16 02/15/20 buspirone 15 mg tablet 15 mg PO BID #0 11/26/16 02/15/20 pantoprazole 40 mg tablet,delayed 40 mg PO BID #0 11/26/16 02/15/20 release (Protonix) warfarin 5 mg tablet (Coumadin) 2.5 mg PO QDAY #0 11/26/16 02/15/20 acetaminophen 500 mg tablet 1,000 mg PO Q6H PRN 10/28/17 02/15/20 (Acetaminophen Extra Strength) alprazolam 0.5 mg tablet 0.5 mg PO DAILY PRN 10/28/17 02/15/20 cyanocobalamin (vitamin B-12) 1,000 mcg PO DAILY 10/28/17 02/15/20 1,000 mcg tablet (Vitamin B-12) fluticasone propionate 50 1 spray INTRANASAL BID PRN 10/28/17 02/15/20 mcg/actuation nasal spray,suspension folic acid 400 mcg tablet 400 mcg PO DAILY 10/28/17 02/15/20 furosemide 20 mg tablet (Lasix) 40 mg PO BID 10/28/17 02/15/20 losartan 25 mg tablet 12.5 mg PO DAILY 10/28/17 02/15/20 fluoxetine 40 mg capsule 60 mg PO DAILY 07/24/18 02/15/20 allopurinol 300 mg tablet 150 mg PO DAILY 03/28/19 02/15/20 metoprolol succinate 50 mg 75 mg PO BID 03/28/19 02/15/20 tablet,extended release 24 hr warfarin 5 mg tablet 5 mg PO WEEKLY 03/28/19 02/15/20 Previous Rx's Medication Instructions Recorded albuterol sulfate 90 mcg/actuation 2 puff INH RTQ4HR PRN #1 g 10/31/17 aerosol inhaler (Ventolin HFA) ferrous sulfate 325 mg (65 mg 325 mg PO DAILY #60 tab 02/17/20 iron) tablet furosemide 20 mg tablet (Lasix) 20 mg PO DAILY #5 tab 10/19/21 hydrocodone 5 mg-acetaminophen 325 1 tab PO QID PRN #10 tab 10/26/21 mg tablet ondansetron 4 mg disintegrating 4 mg PO Q6H PRN #10 tab 10/26/21 tablet Allergies Allergy/AdvReac Type Severity Reaction Status Date / Time shellfish derived Allergy Mild HIVES Verified 10/19/21 09:44 [SHELLFISH DERIVED] azithromycin [AZITHROMYCIN] Allergy Unknown SWOLLEN Verified 10/19/21 09:44 LIPS diltiazem [From CARDIZEM] Allergy Unknown HEART BLOCK Verified 10/19/21 09:44 trazodone [TRAZODONE] Allergy Unknown STOP Verified 10/19/21 09:44 BREATHING doxycycline [DOXYCYCLINE] AdvReac Mild STOMACH Verified 10/19/21 09:44 UPSET Review of Systems Review of Systems Narrative: GENERAL: Denies chills, fatigue, malaise, fever, sweats, travel HEENT: Denies sinus pain, ear pain, sore throat, difficulty swallowing, neck pain RESPIRATORY: Denies dyspnea, cough, wheezing, hemoptysis, sputum. CARDIOVASCULAR: See HPI GASTROINTESTINAL: See HPI : Denies dysuria, frequency, incontinence, hematuria, urinary retention, flank pain. MUSCULOSKELETAL: Denies weakness, joint pain, or bony pain SKIN: No rash, no erythema, no pruritus NEUROLOGIC: Denies weakness, dizziness, headache, numbness, change in speech, confusion PSYCHIATRIC: No concerning psychosocial issues. 12 point review of systems is negative except for those stated above and HPI Patient History Medical History (Updated 11/07/21 @ 12:19 by Nydia Mosher DO) Afib Anemia aplastic aregenerative CAD (coronary atherosclerotic disease) Chronic renal failure Depression Endocarditis Hemolytic anemia Hyperlipemia Migraine SUPERFICIAL LACERATION OF TONGUE Surgical History H/O prosthetic aortic valve replacement Hx of CABG Mitral valve replaced Social History household members: family and children Smoking Status: Never smoker alcohol intake: never additional social history: Past Medical History 1. Rheumatic heart disease. 2. CAD. 3. Hypertension. 4. Depression. 5. Panic disorder. 6. Hiatal hernia. 7. Migraines. 8. Carotid stenosis. 9. Osteopenia. 10. Osteoarthritis. 11. Hyperlipidemia. 12. PAF. 13. Hemolytic anemia 14. Chronic kidney disease. Past Surgical History 1. Aortic and mitral valve replacement. 2. CABG x1. 3. Tubal ligation. 4. Hemorrhagic 2. 5. Transfemoral cath with mitral valve implantation. October 2016. 6. Transvenous pacemaker placement. October 2016. 7. Right femoral vein closure October 2016. Smoking Status: Never smoker alcohol intake frequency: holidays/special occasions only Substance Use Type: marijuana and other Exam Initial Vital Signs Initial Vital Signs: Vital Signs Pulse Rate 91 H 11/07/21 08:25 Respiratory Rate 26 H 11/07/21 08:25 Pulse Oximetry 98 11/07/21 08:25 GENERAL: Alert pleasant is a female and in no acute distress. HEENT: Head atraumatic,EOMI, pupils reactive, face symmetric, moist mucous membranes CARDIOVASCULAR: Regular rate systolic murmur noted RESPIRATORY: Breath sounds equal bilaterally, no wheezes rales or rhonchi. No conversational dyspnea ABDOMEN: Soft, nontender. Normoactive bowel sounds all 4 quadrants. No guarding or rebound. EXTREMITIES: Normal range of motion, no clubbing or edema. Neurovascularly intact NEUROLOGICAL: Alert and oriented x4.Normal gait and speech. SKIN: Warm, dry, no laceration, no petechiae, no rashes or lesions. Course Orders Ordered: ED Orders 11/07/21 08:40 XR chest 1V Stat EKG-12 Lead Stat 11/07/21 08:41 Complete Blood Count AUTO DIFF Stat Comprehensive Metabolic Panel Stat Lipase Stat NT-proBNP (BNP-Adult 18+) Stat Troponin & CK Cardiac Panel Stat 11/07/21 09:01 Urinalysis and Microscopic Stat Urine Culture Stat 11/07/21 09:32 GI Panel (Film Array) Stat Discontinued Medications Sodium Chloride (Normal Saline 0.9%) 1,000 mls @ 150 mls/hr IV CONT JULIETTE Last Infusion: 11/07/21 12:43 Dose: 0 mls/hr Documented by: [email or web address] Admin: 11/07/21 09:11 Dose: 150 mls/hr Documented by: [email or web address] Ondansetron HCl (Ondansetron 4 Mg/2 Ml Inj) 4 mg IV NOW ONE Stop: 11/07/21 08:41 Last Admin: 11/07/21 09:11 Dose: 4 mg Documented by: LAURA Vital Signs Vital signs: Vital Signs - 8 hr 11/07/21 08:25 11/07/21 08:30 11/07/21 08:56 Temperature 99.0 F Pulse Rate 91 H 91 H 78 Respiratory Rate 26 H 34 H 18 Blood Pressure 122/75 Pulse Oximetry 98 97 95 11/07/21 09:00 11/07/21 09:33 11/07/21 10:00 Temperature Pulse Rate 89 85 85 Respiratory Rate 22 17 Blood Pressure Pulse Oximetry 96 96 96 11/07/21 10:20 11/07/21 10:30 11/07/21 10:40 Temperature Pulse Rate 89 86 85 Respiratory Rate 22 18 18 Blood Pressure 138/66 121/66 Pulse Oximetry 96 95 94 11/07/21 11:00 11/07/21 11:20 11/07/21 11:30 Temperature Pulse Rate 84 84 84 Respiratory Rate 21 17 18 Blood Pressure 127/69 109/58 L Pulse Oximetry 95 96 96 11/07/21 11:40 11/07/21 12:00 11/07/21 12:20 Temperature Pulse Rate 84 86 86 Respiratory Rate 18 16 17 Blood Pressure 96/56 L 98/60 108/57 L Pulse Oximetry 95 93 92 11/07/21 12:26 Temperature Pulse Rate 86 Respiratory Rate 28 H Blood Pressure 112/65 Pulse Oximetry 96 MDM - Nausea/Vomiting/Diarrhea Lab Data Result diagrams: 11/07/21 08:41 11/07/21 08:41 Labs: Lab Results 11/07/21 11/07/21 11/07/21 Range/Units 08:41 08:41 09:01 WBC 10.4 (4.5-11.0) X10^3/uL RBC 4.26 (4.0-5.2) X10^6/uL Hgb 11.9 L (12.0-16.0) g/dL Hct 37.2 (36-46) % MCV 87.2 (80-100) fL MCH 27.9 (26-34) PG MCHC 32.0 (30-36) % RDW 15.1 H (11.6-14.8) % Plt Count 362 (150-400) X10^3/uL Neut % (Auto) 83.7 H (50-75) % Lymph % (Auto) 7.4 L (25-40) % [place] % (Auto) 6.6 (3-14) % Eos % (Auto) 2.0 (2-4) % Baso % (Auto) 0.3 (0-2) % Neut # (Auto) 8700 H (4451-7274) /uL Lymph # (Auto) 800 L (2524-9645) /uL [place] # (Auto) 700 (0-900) /uL Eos # (Auto) 200 (0-450) /uL Baso # (Auto) 0 (0-100) /uL Sodium 140 (137-145) mmol/L Potassium 4.1 (3.4-5.1) mmol/L Chloride 108 H (98-107) mmol/L Carbon Dioxide 26 (22-32) mmol/L BUN 23 H (7-17) mg/dL Creatinine 1.85 H (0.52-1.04) mg/dL Estimated GFR 29 L (>60) mL/min BUN/Creatinine Ratio 12.4 (6-22) Glucose 98 (80-110) mg/dL Calcium 8.3 L (8.4-10.2) mg/dL Total Bilirubin 0.4 (0.2-1.3) mg/dL AST 36 (14-36) IU/L ALT 30 (<35) IU/L Alkaline Phosphatase 112 (38-126) U/L Total Creatine Kinase 134 (30-135) U/L CK-MB (CK-2) 2.22 (<2.37) ng/mL CK-MB (CK-2) Rel Index 1.7 (1.5-5.0) % Troponin I 0.013 (0.01-0.034) ng/mL NT-Pro-B Natriuret Pep 2560 H (<125) pg/mL Total Protein 8.1 (6.3-8.2) g/dL Albumin 4.0 (3.5-5.0) g/dL Globulin 4.1 (1.7-4.1) g/dL Albumin/Globulin Ratio 1.0 (1.0-2.8) Lipase 130 (23-300) U/L Urine Color Yellow Urine Appearance Clear Urine pH 5.5 (4.5-8.0) Ur Specific [place] 1.015 (1.000-1.035) Urine Protein 1+ H (Negative) Urine Glucose (UA) Negative (Negative) g/dL Urine Ketones Negative (NEGATIVE) Urine Occult Blood 1+ H (Negative) Urine Nitrate Negative (Negative) Urine Bilirubin Negative (NEGATIVE) Urine Urobilinogen 0.2 (0.2) E.U./dL Ur Leukocyte Esterase Trace H (NEGATIVE) Urine RBC 1-5/hpf (0-5/HPF) Urine WBC 5-10/hpf H (0-5/HPF) Ur Squamous Epith Cells 1-5 /hpf (0-5/HPF) Urine Bacteria Few (2-10) H (None) Ur Culture Indicated? Specimen cultured Stl C. cayetanensis PCR (Not Detect) Stool Rotavirus (PCR) (Not Detect) Stool Adenovirus (PCR) (Not Detect) Stool Astrovirus (PCR) (Not Detect) Stool Cryptosporidium PCR (Not Detect) Stl E.coli Shiga Tox PCR (Not Detect) St Sh/Enteroin Ecoli PCR (Not Detect) Stool E coli O157 PCR Stl Enterotoxigenic E PCR (Not Detect) Stool EPEC (PCR) (Not Detect) Stl E. histolytica PCR (Not Detect) Stool Giardia Lamblia PCR (Not Detect) Stool Sapovirus (PCR) (Not Detect) Stl P. shigelloides PCR (Not Detect) St Y.enterocolitica PCR (Not Detect) Stool Vibrio (PCR) (Not Detect) Stl Vibrio cholerae PCR (Not Detect) Stl Enteroaggr Ecoli PCR (Not Detect) Stl Norovirus GI/GII PCR (Not Detect) Campylobacter (PCR) (Not Detect) C. difficile Tox (PCR) (Not Detect) Salmonella (PCR) (Not Detect) 11/07/21 Range/Units 09:32 WBC (4.5-11.0) X10^3/uL RBC (4.0-5.2) X10^6/uL Hgb (12.0-16.0) g/dL Hct (36-46) % MCV (80-100) fL MCH (26-34) PG MCHC (30-36) % RDW (11.6-14.8) % Plt Count (150-400) X10^3/uL Neut % (Auto) (50-75) % Lymph % (Auto) (25-40) % [place]eman % (Auto) (3-14) % Eos % (Auto) (2-4) % Baso % (Auto) (0-2) % Neut # (Auto) (9623-9673) /uL Lymph # (Auto) (8378-5511) /uL Hardeman # (Auto) (0-900) /uL Eos # (Auto) (0-450) /uL Baso # (Auto) (0-100) /uL Sodium (137-145) mmol/L Potassium (3.4-5.1) mmol/L Chloride (98-107) mmol/L Carbon Dioxide (22-32) mmol/L BUN (7-17) mg/dL Creatinine (0.52-1.04) mg/dL Estimated GFR (>60) mL/min BUN/Creatinine Ratio (6-22) Glucose (80-110) mg/dL Calcium (8.4-10.2) mg/dL Total Bilirubin (0.2-1.3) mg/dL AST (14-36) IU/L ALT (<35) IU/L Alkaline Phosphatase (38-126) U/L Total Creatine Kinase (30-135) U/L CK-MB (CK-2) (<2.37) ng/mL CK-MB (CK-2) Rel Index (1.5-5.0) % Troponin I (0.01-0.034) ng/mL NT-Pro-B Natriuret Pep (<125) pg/mL Total Protein (6.3-8.2) g/dL Albumin (3.5-5.0) g/dL Globulin (1.7-4.1) g/dL Albumin/Globulin Ratio (1.0-2.8) Lipase (23-300) U/L Urine Color Urine Appearance Urine pH (4.5-8.0) Ur Specific [place] (1.000-1.035) Urine Protein (Negative) Urine Glucose (UA) (Negative) g/dL Urine Ketones (NEGATIVE) Urine Occult Blood (Negative) Urine Nitrate (Negative) Urine Bilirubin (NEGATIVE) Urine Urobilinogen (0.2) E.U./dL Ur Leukocyte Esterase (NEGATIVE) Urine RBC (0-5/HPF) Urine WBC (0-5/HPF) Ur Squamous Epith Cells (0-5/HPF) Urine Bacteria (None) Ur Culture Indicated? Stl C. cayetanensis PCR Not detected (Not Detect) Stool Rotavirus (PCR) Not detected (Not Detect) Stool Adenovirus (PCR) Not detected (Not Detect) Stool Astrovirus (PCR) Not detected (Not Detect) Stool Cryptosporidium PCR Not detected (Not Detect) Stl E.coli Shiga Tox PCR Not detected (Not Detect) St Sh/Enteroin Ecoli PCR Not detected (Not Detect) Stool E coli O157 PCR Not Reportable Stl Enterotoxigenic E PCR Not detected (Not Detect) Stool EPEC (PCR) Not detected (Not Detect) Stl E. histolytica PCR Not detected (Not Detect) Stool Giardia Lamblia PCR Not detected (Not Detect) Stool Sapovirus (PCR) Not detected (Not Detect) Stl P. shigelloides PCR Not detected (Not Detect) St Y.enterocolitica PCR Not detected (Not Detect) Stool Vibrio (PCR) Not detected (Not Detect) Stl Vibrio cholerae PCR Not detected (Not Detect) Stl Enteroaggr Ecoli PCR Not detected (Not Detect) Stl Norovirus GI/GII PCR Detected H (Not Detect) Campylobacter (PCR) Not detected (Not Detect) C. difficile Tox (PCR) Not detected (Not Detect) Salmonella (PCR) Not detected (Not Detect) Imaging Data Chest x-ray: Radiologist's Impression: XRay Report Signed Patient: Joselyn Prado MR#: [id number] : 1950 Acct:[id number] Age/Sex: 71 / F Date of Service: 11/07/21 Loc: ED Accession Number: [id number] ?? Procedure: XR chest 1V Ordering Provider: Nydia Mosher D.O. PROCEDURE:? XR CHEST 1V ? INDICATIONS:? chest pain ? TECHNIQUE:? One view of the chest was acquired.? ? COMPARISON:? [facility], CR, XR CHEST 2V, 09/14/2021, 9:45.? [facility], CR, XR CHEST 1V, 03/05/2021, 16:17.? [facility], CR, XR CHEST 2V, 11/20/2018, 23:26.? [facility], CR, XR CHEST 1 VIEW, 10/20/2021, 11:56.? [facility], CR, XR CHEST 2V, 10/19/2021, 10:14. ? FINDINGS:? ? Surgical changes and devices:? Sternotomy wires, mediastinal clips, and cardiac valve prostheses can be seen. ? Lungs and pleura:? On this semiupright portable chest examination, no large pneumothorax or large pleural effusions are seen.? Mild generalized interstitial prominence can be seen. ? Mediastinum:? Mediastinal contours appear normal.? Heart size is mildly enlarged.? Atherosclerotic calcification of the aortic arch is noted.? ? Bones and chest wall:? No suspicious bony lesions.? Age-appropriate bony degenerative changes are seen. ? Overlying soft tissues appear unremarkable.? ? ? IMPRESSION:? Cardiomegaly and mild generalized interstitial prominence.? Please consider early/mild CHF. ? Postoperative and degenerative changes are seen.? ? ? Dictated by: David Charles M.D. on 11/07/2021 at 8:35 ?? ECG Data Interpretation: Normal sinus rhythm rate 88 PA interval 220 QRS [address] changes MDM Narrative Medical decision making narrative: Patient has complicated history with multiple coronary bit he is but is here today for diarrhea. she is not significantly dehydrated on her labs she actually decreased her Lasix which I think is good because of how much diarrhea she is having. Her GI panel is positive for norovirus. Discussed with her increasing fluid intake. She is tolerating fluids here in the ED. She is given a small amount by IV as well. Discharge Plan Departure Patient Disposition: Home Clinical Impression: Norovirus Instructions: Norovirus Infection Activity Restrictions/Additional Instructions: *You have been diagnosed with norovirus *What to do: Increase fluid intake as tolerated. Recommend Gatorade or Pedialyte like product *Continue to take medications as directed Imodium to take as directed if needed for diarrhea agree with lasix 40 mg *Follow up with your primary care provider in 2-3 days or call [phone] *Return to ER if you should have increasing shortness of breath, vomiting, dizziness, lightheadedness or any new, worsening or concerning symptoms Prescriptions: No Action pantoprazole [Protonix] 40 MG tablet,delayed release (DR/EC) 40 mg PO BID Qty: 0 0RF amiodarone 200 MG tablet 200 mg PO QDAY Qty: 0 0RF Label Comments: No longer taking atorvastatin 40 MG tablet 40 mg PO BEDTIME Qty: 0 0RF aspirin 81 MG tablet,delayed release (DR/EC) 81 mg PO QDAY Qty: 0 0RF warfarin [Coumadin] 5 MG tablet 2.5 mg PO QDAY Qty: 0 0RF Label Comments: Takes every day except Monday, On Monday she takes 5mg buspirone 15 MG tablet 15 mg PO BID Qty: 0 0RF cyanocobalamin (vitamin B-12) [Vitamin B-12] 1,000 mcg Tablet 1,000 mcg PO DAILY 0RF folic acid 400 mcg Tablet 400 mcg PO DAILY 0RF acetaminophen [Acetaminophen Extra Strength] 500 mg Tablet 1,000 mg PO Q6H PRN (Reason: Pain (Scale Score 1-3)) 0RF alprazolam 0.5 mg Tablet 0.5 mg PO DAILY PRN (Reason: Anxiety) 0RF losartan 25 mg Tablet 12.5 mg PO DAILY 0RF furosemide [Lasix] 20 mg Tablet 40 mg PO BID 0RF fluticasone propionate 50 mcg/actuation [place],Suspension 1 spray INTRANASAL BID PRN (Reason: Nasal Congestion) 0RF albuterol sulfate [Ventolin HFA] 90 mcg/actuation Hfa Aerosol Inhaler 2 puff INH RTQ4HR PRN (Reason: Shortness Of Breath) Qty: 1 0RF fluoxetine 40 mg capsule 60 mg PO DAILY 0RF furosemide [Lasix] 20 mg tablet 20 mg PO DAILY Qty: 5 0RF allopurinol 300 mg tablet 150 mg PO DAILY 0RF metoprolol succinate 50 mg tablet extended release 24 hr 75 mg PO BID 0RF Label Comments: take 1 tablet by mouth twice a day DO NOT CRUSH OR CHEW warfarin 5 mg tablet 5 mg PO WEEKLY 0RF Label Comments: Takes 5 MG on Tuesdays only ferrous sulfate 325 mg (65 mg iron) tablet 325 mg PO DAILY Qty: 60 0RF hydrocodone-acetaminophen 5-325 mg tablet 1 tab PO QID PRN (Reason: pain) Qty: 10 0RF ondansetron 4 mg tablet,disintegrating 4 mg PO Q6H PRN (Reason: nausea and vomiting) Qty: 10 0RF Referrals: Mitchel Quiroz DO [Primary Care Provider] -
[2021-11-07 09:20] LABS: Appearance Urine UA CLEAR; Bilirubin Urine UA NEGATIVE (NEGATIVE); Color Urine UA YELLOW; Glucose Urine UA NEGATIVE (Negative); Ketones Urine UA NEGATIVE (NEGATIVE); Leukocyte Esterase Urine UA TRACE (NEGATIVE); Nitrite Urine UA NEGATIVE (Negative); Occult Blood Urine UA 1+ (Negative); Protein Urine UA 1+ (Negative); Specific Gravity Urine UA 1.015 (1.000-1.035); Urobilinogen Urine UA 0.2 E.U./dL (0.2)
[2021-11-07 09:24] LABS: pH Urine UA 5.5 (4.5-8.0)
[2021-11-07 09:43] LABS: Bacteria Urine Few (2-10); Culture Indicated Urine Specimen Cultured; RBC Urine 1-5/HPF (0-5/HPF); Squamous Epithelial Cell Urine 1-5 /HPF (0-5/HPF); WBC Urine 5-10/HPF (0-5/HPF)
[2021-11-07 12:04] LABS: Campylobacter Not Detected (Not Detect); Clostridium difficile toxin AB Not Detected (Not Detect); Enteroaggregative E.coli Not Detected (Not Detect); Enteropathogenic E.coli Not Detected (Not Detect); Enterotoxigenic E.coli It/st Not Detected (Not Detect); Plesiomonsa shigelloides Not Detected (Not Detect); Salmonella Not Detected (Not Detect); Shiga-like toxin-prod E.coli Not Detected (Not Detect); Vibrio Not Detected (Not Detect); Vibrio cholerae Not Detected (Not Detect); Yersinia enterocolitica Not Detected (Not Detect)
[2021-11-07 12:05] LABS: Adenovirus F 40/41 Not Detected (Not Detect); Astrovirus Not Detected (Not Detect); Cryptosporidium Not Detected (Not Detect); Cyclospora cayetanensis Not Detected (Not Detect); Entamoeba histolytica Not Detected (Not Detect); Giardia lamblia Not Detected (Not Detect); Norovirus GI/GII Detected (Not Detect); Rotavirus A Not Detected (Not Detect); Sapovirus Not Detected (Not Detect); Shigella/Enteroinvasive E.coli Not Detected (Not Detect)
== END 2021-11-07 12:40 | disposition home or self-care (01) ==
PROVIDERS: Emergency Provider Emergency Medicine; Family Provider Family Medicine; PCP Family Medicine
DX: A08.11 Acute gastroenteropathy due to Norwalk agent (principal); R19.7 Diarrhea, unspecified; R11.2 Nausea with vomiting, unspecified; R07.9 Chest pain, unspecified
CPT/HCPCS: 36415; 71045; 80053; 81001; 82550; 82553; 83690; 83880; 84484; 85025; 87086; 87507; 93005; 93010; 96361; 96374; 99284; J2405

== ENCOUNTER 2023-04-15 09:17 | Inpatient (IN) | payer MEDICARE, SELFPAY ==
[2020-02-15 18:02] VITALS: BMI 34.0
[2023-04-15] VITALS (31 sets, daily range): BP systolic 98–153; BP diastolic 55–79; PULSE 61–89; RESP 19–42; TEMP 35.8; O2SAT 85–97; BMI 16.5; BMI 34.2
--- NOTE | 2023-04-15 09:25 | DI.RAD.S_ITS ---
PROCEDURE: XR CHEST 1V INDICATIONS: short of breath TECHNIQUE: One view of the chest was acquired. COMPARISON: [facility], CR, XR CHEST 1V, 11/07/2021, 9:14. FINDINGS: Surgical changes and devices: Midline sternal wires, cardiac valve prosthesis stable. Heart size is enlarged. Mild vascular congestion. Atherosclerotic vascular calcification noted in the aortic arch. Lungs and pleura: Lungs are clear. No pleural effusions or pneumothorax. Mediastinum: As above Bones and chest wall: No suspicious bony lesions. Overlying soft tissues appear unremarkable. IMPRESSION: Cardiomegaly and mild vascular congestion Approved by: Augie Strong M.D. on 04/15/2023 at 9:56
--- NOTE | 2023-04-15 09:30 | ED_ITS ---
HPI - SOB/Dyspnea General Chief Complaint: Shortness of Breath/Dyspnea Stated Complaint: Difficulty Breathing Time Seen by Provider: 04/15/23 09:24 History of Present Illness HPI Narrative: Patient is 73-year-old female history of mitral valve replacement, congestive heart failure on warfarin presenting today with increasing shortness of breath. Reports that it started last night. She is having little bit of cough feeling weak yesterday. No obvious chest pain. This morning she would increasing shortness of breath. She is significant shortness of breath with exertion. She does not really feel like she is had a fever but she does take Tylenol 1000 mg once a day. She feels like she had a runny nose and a bit of a productive cough. No abdominal pain nausea or vomiting. She does report that she is had increased weight gain the 2 weeks. Related Data Home Medications Medication Instructions Recorded Confirmed atorvastatin 40 mg tablet 40 mg PO BEDTIME ##0 11/26/16 04/15/23 buspirone 15 mg tablet 15 mg PO BID ##0 11/26/16 04/15/23 pantoprazole 40 mg tablet,delayed 40 mg PO BID ##0 11/26/16 04/15/23 release (Protonix) acetaminophen 500 mg tablet 1,000 mg PO Q6H PRN Pain (Scale 10/28/17 04/15/23 (Acetaminophen Extra Strength) Score 1-3) alprazolam 0.5 mg tablet 0.5 mg PO DAILY PRN Anxiety 10/28/17 04/15/23 fluticasone propionate 50 1 spray intranasal BID PRN Nasal 10/28/17 04/15/23 mcg/actuation nasal Congestion spray,suspension furosemide 20 mg tablet (Lasix) 40 mg PO BID 10/28/17 04/15/23 losartan 25 mg tablet 12.5 mg PO DAILY 10/28/17 04/15/23 fluoxetine 40 mg capsule 60 mg PO DAILY 07/24/18 04/15/23 allopurinol 300 mg tablet 150 mg PO DAILY 03/28/19 04/15/23 metoprolol succinate 50 mg 100 mg PO QPM 03/28/19 04/15/23 tablet,extended release 24 hr warfarin 5 mg tablet 2.5 mg PO DAILY 03/28/19 04/15/23 metoprolol succinate 25 mg 75 mg PO QAM 04/15/23 04/15/23 tablet,extended release 24 hr Previous Rx's Medication Instructions Recorded albuterol sulfate 90 mcg/actuation 2 puff INH RTQ4HR PRN Shortness Of 10/31/17 aerosol inhaler (Ventolin HFA) Breath #1 g hydrocodone 5 mg-acetaminophen 325 1 tab PO QID PRN pain #10 tabs 10/26/21 mg tablet ondansetron 4 mg disintegrating 4 mg PO Q6H PRN nausea and 10/26/21 tablet vomiting #10 tabs Allergies Allergy/AdvReac Type Severity Reaction Status Date / Time shellfish derived Allergy Mild HIVES Verified 04/15/23 09:31 [SHELLFISH DERIVED] azithromycin [AZITHROMYCIN] Allergy Unknown SWOLLEN Verified 04/15/23 09:31 LIPS diltiazem [From CARDIZEM] Allergy Unknown HEART BLOCK Verified 04/15/23 09:31 trazodone [TRAZODONE] Allergy Unknown STOP Verified 04/15/23 09:31 BREATHING doxycycline [DOXYCYCLINE] AdvReac Mild STOMACH Verified 04/15/23 09:31 UPSET Patient History Medical History (Updated 04/15/23 @ 16:03 by Nydia Mosher DO) CAD (coronary atherosclerotic disease) Endocarditis Migraine Hyperlipemia Depression Anemia aplastic aregenerative Afib Chronic renal failure Hemolytic anemia SUPERFICIAL LACERATION OF TONGUE Surgical History H/O prosthetic aortic valve replacement Mitral valve replaced Hx of CABG Social History household members: family and children Smoking Status: Never smoker alcohol intake: current additional social history: Past Medical History 1. Rheumatic heart disease. 2. CAD. 3. Hypertension. 4. Depression. 5. Panic disorder. 6. Hiatal hernia. 7. Migraines. 8. Carotid stenosis. 9. Osteopenia. 10. Osteoarthritis. 11. Hyperlipidemia. 12. PAF. 13. Hemolytic anemia 14. Chronic kidney disease. Past Surgical History 1. Aortic and mitral valve replacement. 2. CABG x1. 3. Tubal ligation. 4. Hemorrhagic 2. 5. Transfemoral cath with mitral valve implantation. October 2016. 6. Transvenous pacemaker placement. October 2016. 7. Right femoral vein closure October 2016. Smoking Status: Never smoker alcohol intake frequency: holidays/special occasions only Substance Use Type: marijuana and other Exam Initial Vital Signs Initial Vital Signs: Vital Signs Pulse Rate 78 04/15/23 09:20 Respiratory Rate 24 04/15/23 09:20 Blood Pressure 123/79 04/15/23 09:20 Pulse Oximetry 91 04/15/23 09:20 Oxygen Delivery Method Room Air 04/15/23 09:20 GENERAL: Alert very pleasant 73-year-old female and in no acute distress. HEENT: Head atraumatic,EOMI, pupils reactive, face symmetric, moist mucous membranes CARDIOVASCULAR: Regular rate and rhythm without murmurs, rubs or gallops. RESPIRATORY: Coarse breath sounds bilaterally no obvious conversational dyspnea but obvious dyspnea with minimal exertion ABDOMEN: Soft, nontender. Normoactive bowel sounds all 4 quadrants. No guarding or rebound. EXTREMITIES: Normal range of motion, no clubbing or edema. Neurovascularly intact NEUROLOGICAL: Alert and oriented x4.Normal gait and speech SKIN: Warm, dry, no laceration, no petechiae, no rashes or lesions. Course Orders Ordered: ED Orders 04/15/23 09:25 XR chest 1V Stat EKG-12 Lead Stat 04/15/23 09:33 COVID19 -Nasal RAPID Stat 04/15/23 09:38 Complete Blood Count AUTO DIFF Stat Comprehensive Metabolic Panel Stat Lipase Stat NT-proBNP (BNP-Adult 18+) Stat PTT Partial Thromboplastin Thong Stat Prothrombin Time INR Stat Troponin & CK Cardiac Panel Stat 04/15/23 09:44 Urinalysis and Microscopic Stat Urine Culture Stat Acetaminophen (Acetaminophen 325 Mg Tablet) 975 mg PO Q6H PRN PRN Reason: Pain (Scale Score 1-3) Hydrocodone Bitart/Acetaminophen (Hydrocodone/Acet 5/325 Tablet) 1 tab PO QID PRN PRN Reason: pain Albuterol (Albuterol 2.5 Mg/3 Ml Neb (Adult)) 2.5 mg INH RTQ4HR PRN PRN Reason: Shortness Of Breath Allopurinol (Allopurinol 100 Mg Tablet) 150 mg PO DAILY [facility] Aspirin (Aspirin Ec 81 Mg Tablet) 81 mg PO DAILY [facility] Last Admin: 04/15/23 14:40 Dose: 81 mg Documented By: KAITLYN Atorvastatin Calcium (Atorvastatin 20 Mg Tablet) 40 mg PO BEDTIME [facility] Buspirone HCl (Buspirone 5 Mg Tablet) 15 mg PO BID [facility] Fluoxetine HCl (Fluoxetine 20 Mg Capsule) 60 mg PO DAILY [facility] Furosemide (Furosemide 40 Mg/4 Ml Vial) 40 mg IV Q8H [facility] Last Admin: 04/15/23 14:40 Dose: 40 mg Documented By: KAITLYN Losartan Potassium (Losartan 25 Mg Tablet) 12.5 mg PO DAILY [facility] Metoprolol Succinate (Metoprolol Er 50 Mg Tablet) 75 mg PO DAILY [facility] Metoprolol Succinate (Metoprolol Er 50 Mg Tablet) 100 mg PO BEDTIME [facility] Naloxone HCl (Naloxone 0.4 Mg/Ml Vial) 0.2 mg IV Q2MIN PRN PRN Reason: Opiate Reversal Ondansetron HCl (Ondansetron 4 Mg Odt) 4 mg PO Q6H PRN PRN Reason: nausea and vomiting Pantoprazole Sodium (Pantoprazole Dr 40 Mg Tablet) 40 mg PO BID [facility] Warfarin Protocol (Warfarin Per Pharmacy (Inr 2-3)) 1 request MISC NOW PRN PRN Reason: afib Discontinued Medications Amiodarone HCl (Amiodarone 200 Mg Tablet) 200 mg PO DAILY [facility] Furosemide (Furosemide 40 Mg/4 Ml Vial) 40 mg IV NOW ONE Stop: 04/15/23 09:26 Last Admin: 04/15/23 09:54 Dose: 40 mg Documented By: KAITLYN Metoprolol Succinate (Metoprolol Er 50 Mg Tablet) 75 mg PO BID [facility] Warfarin Sodium (Warfarin 5 Mg Tablet) 5 mg PO WEEKLY [facility] Vital Signs Vital signs: Vital Signs - 8 hr 04/15/23 09:20 04/15/23 09:25 04/15/23 09:30 Pulse Rate 78 61 Respiratory Rate 24 Blood Pressure 123/79 153/79 H Pulse Oximetry 91 87 L Oxygen Delivery Method Room Air Room Air Oxygen Flow Rate 04/15/23 09:30 04/15/23 09:45 04/15/23 09:46 Pulse Rate 89 84 Respiratory Rate 32 H 23 Blood Pressure 111/78 Pulse Oximetry 93 93 Oxygen Delivery Method Nasal Cannula Oxygen Flow Rate 2 04/15/23 09:46 04/15/23 10:00 04/15/23 10:00 Pulse Rate 84 81 Respiratory Rate 21 30 H Blood Pressure 104/74 Pulse Oximetry 92 94 Oxygen Delivery Method Nasal Cannula Oxygen Flow Rate 2 04/15/23 10:15 04/15/23 10:15 04/15/23 10:30 Pulse Rate 88 Respiratory Rate 26 H Blood Pressure 127/63 106/57 L Pulse Oximetry 96 Oxygen Delivery Method Oxygen Flow Rate 04/15/23 10:30 04/15/23 10:45 04/15/23 10:45 Pulse Rate 82 81 Respiratory Rate 19 37 H Blood Pressure 115/56 L Pulse Oximetry 94 95 Oxygen Delivery Method Oxygen Flow Rate 04/15/23 11:00 04/15/23 11:00 04/15/23 11:15 Pulse Rate 80 80 Respiratory Rate 28 H 21 Blood Pressure 118/58 L Pulse Oximetry 95 95 Oxygen Delivery Method Nasal Cannula Oxygen Flow Rate 2 04/15/23 11:15 04/15/23 11:30 04/15/23 11:30 Pulse Rate 80 Respiratory Rate 21 Blood Pressure 110/55 L 109/59 L Pulse Oximetry 94 Oxygen Delivery Method Oxygen Flow Rate 04/15/23 11:45 04/15/23 11:45 04/15/23 12:00 Pulse Rate 80 Respiratory Rate 36 H Blood Pressure 102/58 L 134/59 L Pulse Oximetry 95 Oxygen Delivery Method Oxygen Flow Rate 04/15/23 12:00 04/15/23 12:15 04/15/23 12:16 Pulse Rate 84 81 Respiratory Rate 24 23 Blood Pressure 98/56 L Pulse Oximetry Oxygen Delivery Method Oxygen Flow Rate 04/15/23 12:16 04/15/23 12:30 04/15/23 12:30 Pulse Rate 81 81 Respiratory Rate 35 H 31 H Blood Pressure 105/56 L Pulse Oximetry 97 91 Oxygen Delivery Method Nasal Cannula Room Air Oxygen Flow Rate 2 04/15/23 12:45 04/15/23 12:45 04/15/23 13:00 Pulse Rate 82 Respiratory Rate 41 H Blood Pressure 104/59 L 106/56 L Pulse Oximetry 90 L Oxygen Delivery Method Room Air Oxygen Flow Rate 04/15/23 13:00 04/15/23 13:15 04/15/23 13:15 Pulse Rate 81 82 Respiratory Rate 42 H 21 Blood Pressure 108/56 L Pulse Oximetry 91 92 Oxygen Delivery Method Room Air Oxygen Flow Rate 04/15/23 13:30 04/15/23 13:31 04/15/23 13:31 Pulse Rate 84 84 Respiratory Rate 36 H 35 H Blood Pressure 105/76 Pulse Oximetry 93 93 Oxygen Delivery Method Room Air Oxygen Flow Rate 04/15/23 13:44 04/15/23 13:45 04/15/23 14:00 Pulse Rate 87 87 84 Respiratory Rate 42 H 23 32 H Blood Pressure Pulse Oximetry 85 L 93 93 Oxygen Delivery Method Oxygen Flow Rate MDM - SOB/Dyspnea Lab Data 04/15/23 09:38 04/15/23 09:38 Labs: Lab Results 04/15/23 04/15/23 04/15/23 Range/Units 09:33 09:38 09:44 WBC 10.8 (4.5-11.0) X10^3/uL RBC 4.61 (4.0-5.2) X10^6/uL Hgb 13.2 (12.0-16.0) g/dL Hct 40.7 (36-46) % MCV 88.3 (80-100) fL MCH 28.5 (26-34) PG MCHC 32.3 (30-36) % RDW 13.9 (11.6-14.8) % Plt Count 246 (150-400) X10^3/uL Neut % (Auto) 84.2 H (50-75) % Lymph % (Auto) 6.3 L (25-40) % Barron % (Auto) 6.0 (3-14) % Eos % (Auto) 2.8 (2-4) % Baso % (Auto) 0.7 (0-2) % Neut # (Auto) 9100 H (0148-3276) /uL Lymph # (Auto) 700 L (6492-3429) /uL Barron # (Auto) 600 (0-900) /uL Eos # (Auto) 300 (0-450) /uL Baso # (Auto) 100 (0-100) /uL PT 36.2 H (10.1-12.7) SECONDS INR 3.1 H (0.9-1.3) APTT 50 H (26-36) SECONDS Sodium 139 (137-145) mmol/L Potassium 4.2 (3.4-5.1) mmol/L Chloride 105 (98-107) mmol/L Carbon Dioxide 23 (22-32) mmol/L BUN 31 H (7-17) mg/dL Creatinine 1.87 H (0.52-1.04) mg/dL Estimated GFR 28 L (>60) mL/min BUN/Creatinine Ratio 16.6 (6-22) Glucose 123 H (80-110) mg/dL Calcium 9.2 (8.4-10.2) mg/dL Total Bilirubin 0.4 (0.2-1.3) mg/dL AST 34 (14-36) IU/L ALT 26 (<35) IU/L Alkaline Phosphatase 110 (38-126) U/L Total Creatine Kinase 360 H (30-135) U/L Troponin I 0.014 (0.01-0.034) ng/mL NT-Pro-B Natriuret Pep 4200 H (<125) pg/mL Total Protein 8.3 H (6.3-8.2) g/dL Albumin 4.5 (3.5-5.0) g/dL Globulin 3.8 (1.7-4.1) g/dL Albumin/Globulin Ratio 1.2 (1.0-2.8) Lipase 138 (23-300) U/L Urine Color Yellow Urine Appearance Clear Urine pH 5.5 (4.5-8.0) Ur Specific [place] 1.010 (1.000-1.035) Urine Protein Negative (Negative) Urine Glucose (UA) Negative (Negative) g/dL Urine Ketones Negative (NEGATIVE) Urine Occult Blood Trace-intact (Negative) Urine Nitrate Negative (Negative) Urine Bilirubin Negative (NEGATIVE) Urine Urobilinogen 0.2 (0.2) E.U./dL Ur Leukocyte Esterase Negative (NEGATIVE) Urine RBC 0-1/hpf (0-5/HPF) Urine WBC 1-5/hpf (0-5/HPF) Ur Squamous Epith Cells 5-10 /hpf H (0-5/HPF) Urine Bacteria Occasional (0-1) (None) Ur Culture Indicated? Specimen cultured SARS-CoV-2 (PCR) Negative (Negative) Imaging Data Chest x-ray: Radiologist's Impression: PROCEDURE: XR CHEST 1V INDICATIONS: short of breath TECHNIQUE: One view of the chest was acquired. COMPARISON: [facility], CR, XR CHEST 1V, 11/07/2021, 9:14. FINDINGS: Surgical changes and devices: Midline sternal wires, cardiac valve prosthesis stable. Heart size is enlarged. Mild vascular congestion. Atherosclerotic vascular calcification noted in the aortic arch. Lungs and pleura: Lungs are clear. No pleural effusions or pneumothorax. Mediastinum: As above Bones and chest wall: No suspicious bony lesions. Overlying soft tissues appear unremarkable. IMPRESSION: Cardiomegaly and mild vascular congestion Approved by: Augie Strong M.D. on 04/15/2023 at 9:56 ECG Data Interpretation: Sinus rhythm rate 84 NH interval 192 QRS [address] changes no T-wave inversion MDM Narrative Medical decision making narrative: Patient alfredo 73-year-old female who presents with increasing shortness of breath over the last couple of days. She reports weight gain as well on exam she does have some coarse breath sounds but no obvious respiratory distress or conversational dyspnea. She is mildly tachypneic. Labs: Labs reviewed. BNP is elevated at 4200 baseline seems to be at about 2500. She is a negative troponin. Negative COVID. X-ray shows vascular congestion Patient is monitored in the ED she is given IV Lasix 40 mg she diuresed about 1 L. oxygen level is on the lower end of normal 91% at rest. She is mildly tachypneic but no obvious respiratory distress. Attempted ambulation which she did fail. She got very dyspneic and hypoxic. Dr. Izquierdo updated on patient's symptoms test results and agrees with admission. In ED to see and evaluate patient. Discharge Plan Departure Patient Disposition: Admitted as Observation Clinical Impression: CHF (congestive heart failure) Admit Date/Time: 04/15/23 14:01 Admit Provider: Star Hunt
[2023-04-15 09:53] LABS: Add Manual Diff / Slide Review NO; Basophils Absolute Auto 100 /uL (0-100); Basophils Percent Auto 0.7 % (0-2); Eosinophils Absolute Auto 300 /uL (0-450); Eosinophils Percent Auto 2.8 % (2-4); Hematocrit 40.7 % (36-46); Hemoglobin 13.2 g/dL (12.0-16.0); Lymphocytes Absolute Auto 700 /uL (1100-4500); Lymphocytes Percent Auto 6.3 % (25-40); Mean Corpuscular HGB Conc 32.3 % (30-36); Mean Corpuscular Hemoglobin 28.5 PG (26-34); Mean Corpuscular Volume 88.3 fL (80-100); Monocytes Absolute Auto 600 /uL (0-900); Neutrophils Absolute Auto 9100 /uL (1500-7000); Neutrophils Percent Auto 84.2 % (50-75); Platelet Count 246 X10^3/uL (150-400); Red Blood Cell Count 4.61 X10^6/uL (4.0-5.2); Red Cell Distribution Width 13.9 % (11.6-14.8); White Blood Cell Count 10.8 X10^3/uL (4.5-11.0)
[2023-04-15 09:54] LABS: INR 3.1 (0.9-1.3); Prothrombin Time 36.2 SECONDS (10.1-12.7)
[2023-04-15] MEDS: FUROSEMIDE 40 MG/4 ML VIAL IV ×3 (09:54→21:49)
[2023-04-15 09:57] LABS: Alanine Aminotransferase 26 IU/L (<35); Albumin 4.5 g/dL (3.5-5.0); Albumin Globulin Ratio 1.2 (1.0-2.8); Alkaline Phosphatase 110 U/L (38-126); Aspartate Aminotransferase 34 IU/L (14-36); BUN Creatinine Ratio 16.6 (6-22); Bilirubin Total 0.4 mg/dL (0.2-1.3); Blood Urea Nitrogen 31 mg/dL (7-17); Calcium 9.2 mg/dL (8.4-10.2); Carbon Dioxide 23 mmol/L (22-32); Chloride 105 mmol/L (98-107); Creatine Kinase 360 U/L (30-135); Estimated Glomerular Filt Rate 28 mL/min (>60); Globulin 3.8 g/dL (1.7-4.1); Glucose 123 mg/dL (80-110); HEMOLYSIS < 15 (0-50); Lipase 138 U/L (23-300); PTT Partial Thromboplastin Tim 50 SECONDS (26-36); Potassium 4.2 mmol/L (3.4-5.1); Sodium 139 mmol/L (137-145); Total Protein 8.3 g/dL (6.3-8.2)
[2023-04-15 09:59] LABS: Appearance Urine UA CLEAR; Bilirubin Urine UA NEGATIVE (NEGATIVE); Color Urine UA YELLOW; Glucose Urine UA NEGATIVE (Negative); Ketones Urine UA NEGATIVE (NEGATIVE); Leukocyte Esterase Urine UA NEGATIVE (NEGATIVE); Nitrite Urine UA NEGATIVE (Negative); Occult Blood Urine UA TRACE-INTACT (Negative); Protein Urine UA NEGATIVE (Negative); Urobilinogen Urine UA 0.2 E.U./dL (0.2)
[2023-04-15 10:08] LABS: pH Urine UA 5.5 (4.5-8.0)
[2023-04-15 10:09] LABS: NT-proBNP (BNP-Adult 18+) 4200 pg/mL (<125); Troponin I 0.014 ng/mL (0.01-0.034)
[2023-04-15 10:16] LABS: COVID19 -Nasal RAPID Negative (Negative)
[2023-04-15 10:28] LABS: Bacteria Urine Occasional (0-1); Culture Indicated Urine Specimen Cultured; RBC Urine 0-1/HPF (0-5/HPF); Squamous Epithelial Cell Urine 5-10 /HPF (0-5/HPF); WBC Urine 1-5/HPF (0-5/HPF)
--- NOTE | 2023-04-15 14:08 | PC.NURSE ---
Failed ambulation trial. Continues to have increased sob w/ any exertion. Resolves w/ rest.
--- NOTE | 2023-04-15 14:23 | PM.HP.1 ---
History of Present Illness History of Present Illness Date Patient Seen: 04/15/23 Chief complaint: Difficulty Breathing Narrative: This is a 73-year-old female with hypertension, depression, coronary artery disease, valvular heart disease, CHF and hyperlipidemia who presents with 1 day of increased shortness of breath. 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 Her BNP is chronically elevated, usually in the 2000 range but is above 4200 on this admission. She presented with a saturation in the 80s and was diuresed 1 L of fluid in the ED. When she stood up to try to walk and possibly go home she dropped to 85% on room air with ambulation. Her chest x-ray shows CHF. She has a history of heart disease and will be receiving another echocardiogram. She has had both aortic valve and mitral valves replaced and has significant heart murmur today. She will be diuresed with IV Lasix. [facility] Medical History (Updated 04/15/23 @ 16:03 by Nydia Mosher DO) CAD (coronary atherosclerotic disease) Endocarditis Migraine Hyperlipemia Depression Anemia aplastic aregenerative Afib Chronic renal failure Hemolytic anemia SUPERFICIAL LACERATION OF TONGUE Surgical History (Updated 04/15/23 @ 20:01 by Star Hunt MD) History of hemorrhoidectomy Hx of LASIK History of tubal ligation H/O prosthetic aortic valve replacement Mitral valve replaced Hx of CABG Family History (Updated 04/15/23 @ 20:02 by Star Hunt MD) Mother Diabetes mellitus Father Heart disease Social History household members: family and children Smoking Status: Never smoker alcohol intake: current additional social history: Past Medical History 1. Rheumatic heart disease. 2. CAD. 3. Hypertension. 4. Depression. 5. Panic disorder. 6. Hiatal hernia. 7. Migraines. 8. Carotid stenosis. 9. Osteopenia. 10. Osteoarthritis. 11. Hyperlipidemia. 12. PAF. 13. Hemolytic anemia 14. Chronic kidney disease. Past Surgical History 1. Aortic and mitral valve replacement. 2. CABG x1. 3. Tubal ligation. 4. Hemorrhagic 2. 5. Transfemoral cath with mitral valve implantation. October 2016. 6. Transvenous pacemaker placement. October 2016. 7. Right femoral vein closure October 2016. Meds Home Medications and Allergies Home Medications Medication Instructions Recorded Confirmed Type atorvastatin 40 mg tablet 40 mg PO BEDTIME ##0 11/26/16 04/15/23 History buspirone 15 mg tablet 15 mg PO BID ##0 11/26/16 04/15/23 History pantoprazole 40 mg tablet,delayed 40 mg PO BID ##0 11/26/16 04/15/23 History release (Protonix) acetaminophen 500 mg tablet 1,000 mg PO Q6H PRN Pain (Scale 10/28/17 04/15/23 History (Acetaminophen Extra Strength) Score 1-3) alprazolam 0.5 mg tablet 0.5 mg PO DAILY PRN Anxiety 10/28/17 04/15/23 History fluticasone propionate 50 1 spray intranasal BID PRN Nasal 10/28/17 04/15/23 History mcg/actuation nasal Congestion spray,suspension furosemide 20 mg tablet (Lasix) 40 mg PO BID 10/28/17 04/15/23 History losartan 25 mg tablet 12.5 mg PO DAILY 10/28/17 04/15/23 History albuterol sulfate 90 mcg/actuation 2 puff INH RTQ4HR PRN Shortness Of 10/31/17 04/15/23 Rx aerosol inhaler (Ventolin HFA) Breath #1 g fluoxetine 40 mg capsule 60 mg PO DAILY 07/24/18 04/15/23 History allopurinol 300 mg tablet 150 mg PO DAILY 03/28/19 04/15/23 History metoprolol succinate 50 mg 100 mg PO QPM 03/28/19 04/15/23 History tablet,extended release 24 hr warfarin 5 mg tablet 2.5 mg PO DAILY 03/28/19 04/15/23 History hydrocodone 5 mg-acetaminophen 325 1 tab PO QID PRN pain #10 tabs 10/26/21 04/15/23 Rx mg tablet ondansetron 4 mg disintegrating 4 mg PO Q6H PRN nausea and 10/26/21 04/15/23 Rx tablet vomiting #10 tabs metoprolol succinate 25 mg 75 mg PO QAM 04/15/23 04/15/23 History tablet,extended release 24 hr Allergies Allergy/AdvReac Type Severity Reaction Status Date / Time shellfish derived Allergy Mild HIVES Verified 04/15/23 09:31 [SHELLFISH DERIVED] azithromycin [AZITHROMYCIN] Allergy Unknown SWOLLEN Verified 04/15/23 09:31 LIPS diltiazem [From CARDIZEM] Allergy Unknown HEART BLOCK Verified 04/15/23 09:31 trazodone [TRAZODONE] Allergy Unknown STOP Verified 04/15/23 09:31 BREATHING doxycycline [DOXYCYCLINE] AdvReac Mild STOMACH Verified 04/15/23 09:31 UPSET Review of Systems Review of Systems Narrative: Positive for shortness of breath, wheezing and weakness. Negative for chest pain, vomiting, abdominal pain, bleeding, rashes, dysuria, seizures, headaches, sore throat, new allergies. Exam Vital Signs (past 8 hours): - 04/15/23 09:20 04/15/23 09:25 04/15/23 09:30 Pulse Rate 78 61 Respiratory Rate 24 Blood Pressure 123/79 153/79 H Pulse Oximetry 91 87 L Oxygen Delivery Method Room Air Room Air Oxygen Flow Rate 04/15/23 09:30 04/15/23 09:45 04/15/23 09:46 Pulse Rate 89 84 Respiratory Rate 32 H 23 Blood Pressure 111/78 Pulse Oximetry 93 93 Oxygen Delivery Method Nasal Cannula Oxygen Flow Rate 2 04/15/23 09:46 04/15/23 10:00 04/15/23 10:00 Pulse Rate 84 81 Respiratory Rate 21 30 H Blood Pressure 104/74 Pulse Oximetry 92 94 Oxygen Delivery Method Nasal Cannula Oxygen Flow Rate 2 04/15/23 10:15 04/15/23 10:15 04/15/23 10:30 Pulse Rate 88 Respiratory Rate 26 H Blood Pressure 127/63 106/57 L Pulse Oximetry 96 Oxygen Delivery Method Oxygen Flow Rate 04/15/23 10:30 04/15/23 10:45 04/15/23 10:45 Pulse Rate 82 81 Respiratory Rate 19 37 H Blood Pressure 115/56 L Pulse Oximetry 94 95 Oxygen Delivery Method Oxygen Flow Rate 04/15/23 11:00 04/15/23 11:00 04/15/23 11:15 Pulse Rate 80 80 Respiratory Rate 28 H 21 Blood Pressure 118/58 L Pulse Oximetry 95 95 Oxygen Delivery Method Nasal Cannula Oxygen Flow Rate 2 04/15/23 11:15 04/15/23 11:30 04/15/23 11:30 Pulse Rate 80 Respiratory Rate 21 Blood Pressure 110/55 L 109/59 L Pulse Oximetry 94 Oxygen Delivery Method Oxygen Flow Rate 04/15/23 11:45 04/15/23 11:45 04/15/23 12:00 Pulse Rate 80 Respiratory Rate 36 H Blood Pressure 102/58 L 134/59 L Pulse Oximetry 95 Oxygen Delivery Method Oxygen Flow Rate 04/15/23 12:00 04/15/23 12:15 04/15/23 12:16 Pulse Rate 84 81 Respiratory Rate 24 23 Blood Pressure 98/56 L Pulse Oximetry Oxygen Delivery Method Oxygen Flow Rate 04/15/23 12:16 04/15/23 12:30 04/15/23 12:30 Pulse Rate 81 81 Respiratory Rate 35 H 31 H Blood Pressure 105/56 L Pulse Oximetry 97 91 Oxygen Delivery Method Nasal Cannula Room Air Oxygen Flow Rate 2 04/15/23 12:45 04/15/23 12:45 04/15/23 13:00 Pulse Rate 82 Respiratory Rate 41 H Blood Pressure 104/59 L 106/56 L Pulse Oximetry 90 L Oxygen Delivery Method Room Air Oxygen Flow Rate 04/15/23 13:00 04/15/23 13:15 04/15/23 13:15 Pulse Rate 81 82 Respiratory Rate 42 H 21 Blood Pressure 108/56 L Pulse Oximetry 91 92 Oxygen Delivery Method Room Air Oxygen Flow Rate 04/15/23 13:30 04/15/23 13:31 04/15/23 13:31 Pulse Rate 84 84 Respiratory Rate 36 H 35 H Blood Pressure 105/76 Pulse Oximetry 93 93 Oxygen Delivery Method Room Air Oxygen Flow Rate 04/15/23 13:44 Pulse Rate 87 Respiratory Rate 42 H Blood Pressure Pulse Oximetry 85 L Oxygen Delivery Method Oxygen Flow Rate Oxygen Delivery Method Room Air Oxygen Flow Rate 2 Narrative Exam Narrative: She is alert and oriented x3. No apparent distress. Pupils are equally round and reactive to light and accommodation. Extraocular muscles are intact. Sclerae are pink and nonicteric. Throat looks normal. No lymph nodes are felt head, neck, supraclavicular area. There is no thyromegaly. No carotid bruits are heard. Heart is regular rate and rhythm with a 2/6 systolic murmur. Lungs have wheezing bilaterally. Abdomen is soft, bowel sounds positive, nontender, no organomegaly. Extremities have no ankle edema Skin has no rash or jaundice. Neurologic exam: No tremor. Cranial nerves 2-12 test intact. Motor function is 4/5 throughout. Objective Labs 04/15/23 09:38 04/15/23 09:38 Labs: Laboratory Results - last 24 hr 04/15/23 04/15/23 04/15/23 09:33 09:38 09:44 WBC 10.8 RBC 4.61 Hgb 13.2 Hct 40.7 MCV 88.3 MCH 28.5 MCHC 32.3 RDW 13.9 Plt Count 246 Neut % (Auto) 84.2 H Lymph % (Auto) 6.3 L [place] % (Auto) 6.0 Eos % (Auto) 2.8 Baso % (Auto) 0.7 Neut # (Auto) 9100 H Lymph # (Auto) 700 L Barnes # (Auto) 600 Eos # (Auto) 300 Baso # (Auto) 100 PT 36.2 H INR 3.1 H APTT 50 H Sodium 139 Potassium 4.2 Chloride 105 Carbon Dioxide 23 BUN 31 H Creatinine 1.87 H Estimated GFR 28 L BUN/Creatinine Ratio 16.6 Glucose 123 H Calcium 9.2 Total Bilirubin 0.4 AST 34 ALT 26 Alkaline Phosphatase 110 Total Creatine Kinase 360 H Troponin I 0.014 NT-Pro-B Natriuret Pep 4200 H Total Protein 8.3 H Albumin 4.5 Globulin 3.8 Albumin/Globulin Ratio 1.2 Lipase 138 Urine Color Yellow Urine Appearance Clear Urine pH 5.5 Ur Specific [place] 1.010 Urine Protein Negative Urine Glucose (UA) Negative Urine Ketones Negative Urine Occult Blood Trace-intact Urine Nitrate Negative Urine Bilirubin Negative Urine Urobilinogen 0.2 Ur Leukocyte Esterase Negative Urine RBC 0-1/hpf Urine WBC 1-5/hpf Ur Squamous Epith Cells 5-10 /hpf H Urine Bacteria Occasional (0-1) Ur Culture Indicated? Specimen cultured SARS-CoV-2 (PCR) Negative Assessment & Plan Assessment & Plan narrative: This is a 73-year-old female with a history of valvular and ischemic heart disease who presents with an elevated BNP along with shortness of breath and chest x-ray evidence for CHF. Congestive heart failure, present on admission. Chronic. -diuresed with 40 mg Lasix IV Q 8 hours. -follow BMP -BNP 4200 -continue losartan and metoprolol. -echocardiogram to be updated. Hypertension -continue metoprolol and losartan Atrial fibrillation, present on admission. Chronic. -continue warfarin with pharmacy to manage dosing -continue metoprolol. Depression -continue fluoxetine -continue buspirone for anxiety Hyperlipidemia -continue atorvastatin Warfarin for DVT prevention Likely to return home in a few days.
[2023-04-15] MEDS: ASPIRIN EC 81 MG TABLET PO (14:40)
--- NOTE | 2023-04-15 14:55 | DI.ECHO.S_ITS ---
[facility] +---------+ : : [address] : : : : [id number] : : : : Phone: [phone]+ Echocardiogram Report + + :Name: DIMITRI TAFOYA Study Date: 04/16/2023 Height: 60 in : :[facility] ReadingLocation: Weight: 190 lb : : Gender: Female BSA: 1.8 m2 : :: 1950 Age: 73 yrs BP: 110/59 mmHg: :Reason For Study: Congestiv Heart Failure : :Ordering Physician: GAVIN, : :DOLLY Short Performed By: Dulce Maria Man : :Referring: DOLLY ALONSO : + + Interpretation Summary The ejection fraction is estimated to be 60-65%. Diastolic function could not be accurately assessed due to confounding valvular disease. The left atrium is borderline dilated. The right ventricle is not well visualized. There is a bioprosthetic mitral valve with increased gradients, higher than prior study and suggesting stenosis. There is a bioprosthetic aortic valve with increased gradients that are slightly lower than prior study. There is mild to moderate tricuspid regurgitation. The right ventricular systolic pressure is estimated to be at least 45 mmHg based on an estimated right atrial pressure of 3 mm Hg. The ascending aorta is mildly enlarged, 3.8 cm. There is a trivial pericardial effusion noted. Procedure: A two-dimensional transthoracic echocardiogram with color flow and Doppler was performed. The study quality was technically adequate. Comparison is made with the echocardiogram of 11/28/2016. The patient was in normal sinus rhythm during the exam. Left Ventricle: The left ventricle is normal in size. The ejection fraction is estimated to be 60-65%. Diastolic function could not be accurately assessed due to confounding valvular disease. Right Ventricle: The right ventricle is not well visualized. Atria: The left atrium is borderline dilated. Right atrial size is normal. Mitral Valve: There is a bioprosthetic mitral valve. The mitral valve mean gradient is 13 mmHg. Mitral valve peak velocity is 2.3 cm/s. VTI MV / VTI LVOT = 2.5. Heart rate 82 bpm. There is trace mitral regurgitation. Aortic Valve: There is a bioprosthetic aortic valve. LVOT measurement and interrogation appears to be limited due to impingement from the mitral prosthesis. The peak aortic velocity is 3.53 m/sec. The aortic valve mean gradient is 28 mmHg. DVI 0.42. There is trace aortic regurgitation. Tricuspid Valve: The tricuspid valve is normal. There is no tricuspid stenosis. There is mild to moderate tricuspid regurgitation. The right ventricular systolic pressure is estimated to be at least 45 mmHg based on an estimated right atrial pressure of 3 mm Hg. Pulmonic Valve: The pulmonic valve is not well visualized. There is no pulmonic valvular stenosis. There is trace pulmonic regurgitation. Great Vessels: The aortic root is not well visualized. The ascending aorta is mildly enlarged. The pulmonary artery is normal size. The IVC is of normal diameter and collapses greater than 50% with a sniff. This suggests a low right atrial pressure of 3 mm Hg. Pericardium/ Pleura There is a trivial pericardial effusion noted. MMode/2D Measurements & Calculations LVIDd: 3.2 cm asc Aorta Diam: 3.8 cm LVIDs: 2.3 cm FS: 28.1 % IVSd: 1.0 cm LVPWd: 1.2 cm LV dove. diameter/BSA (cm/m^2): 1.8 LV sys. diameter/BSA (cm/m^2): 1.3 LA dimension: 4.5 cm RA long axis: 4.7 cm LA A2 area: 19.7 cm2 RA area: 14.7 cm2 LA A4 area: 17.6 cm2 RA vol: 39.4 ml RA : 21.6 ml/m2 RVD1 (basal): 3.6 cm LVLs ap4: 5.5 cm LVLd ap2: 6.3 cm TAPSE_phl: 1.5 cm LVLs ap2: 5.7 cm Doppler Measurements & Calculations Ao V2 max: 345.4 cm/sec LVOT Max Escobar: 144.8 cm/sec Ao V2 mean: 238.4 cm/sec LV V1 max P.4 mmHg Ao max P.0 mmHg LV V1 VTI: 27.0 cm Ao mean P.4 mmHg sev ratio: 0.42 Ao V2 VTI: 64.4 cm TR max escobar: 324.0 cm/sec MV V2 mean: 164.3 cm/sec TR max P.0 mmHg MV mean P.7 mmHg PA V2 max: 96.1 cm/sec MV V2 VTI: 66.9 cm PA V2 mean: 69.5 cm/sec PA mean P.0 mmHg PA pr(Accel): 34.9 mmHg AV VR_phl: 0.42 Reading Physician:02:10 PM
--- NOTE | 2023-04-15 16:51 | PC.NURSE ---
Pt arrived from ED, alert, SOB w/excertion HLintact/patent Denies pain Tele placed NSR per ICU staff. Clay cath patent clear yellow urine. Oriented to room & call system Call light w/in reach, bed alarm on for pt safety. Continue w/plan of care.
[2023-04-15] MEDS: HYDROCODONE/ACET 5/325 TABLET 1 TAB PO (18:08)
[2023-04-15] MEDS: METOPROLOL ER 50 MG TABLET 100 MG PO (20:55)
[2023-04-15] MEDS: BUSPIRONE 5 MG TABLET 15 MG PO (20:57)
[2023-04-15] MEDS: ATORVASTATIN 20 MG TABLET 40 MG PO (20:57)
[2023-04-15] MEDS: PANTOPRAZOLE DR 40 MG TABLET PO (20:57)
[2023-04-16] VITALS (7 sets, daily range): BP systolic 97–111; BP diastolic 50–64; PULSE 64–87; RESP 16–22; TEMP 36.1–36.9; O2SAT 91–96
[2023-04-16] MEDS: FUROSEMIDE 40 MG/4 ML VIAL IV ×2 (06:11→14:12)
[2023-04-16 06:20] LABS: INR 2.3 (0.9-1.3); Prothrombin Time 26.6 SECONDS (10.1-12.7)
[2023-04-16 06:24] LABS: BUN Creatinine Ratio 20.1 (6-22); Blood Urea Nitrogen 38 mg/dL (7-17); Calcium 9.1 mg/dL (8.4-10.2); Carbon Dioxide 27 mmol/L (22-32); Chloride 103 mmol/L (98-107); Estimated Glomerular Filt Rate 28 mL/min (>60); Glucose 103 mg/dL (80-110); HEMOLYSIS 17 (0-50); Potassium 3.7 mmol/L (3.4-5.1); Sodium 139 mmol/L (137-145)
[2023-04-16] MEDS: allopurinoL 100 MG TABLET 150 MG PO (09:42)
[2023-04-16] MEDS: ASPIRIN EC 81 MG TABLET PO (09:43)
[2023-04-16] MEDS: BUSPIRONE 5 MG TABLET 15 MG PO ×2 (09:43→21:27)
[2023-04-16] MEDS: FLUoxetine 20 MG CAPSULE 60 MG PO (09:44)
[2023-04-16] MEDS: PANTOPRAZOLE DR 40 MG TABLET PO ×2 (09:45→21:25)
[2023-04-16] MEDS: LOSARTAN 25 MG TABLET 12.5 MG PO (09:46)
[2023-04-16] MEDS: METOPROLOL ER 50 MG TABLET 75 MG PO (09:47)
[2023-04-16 13:10] LABS: Magnesium 2.1 mg/dL (1.6-2.3)
[2023-04-16] MEDS: POTASSIUM CHLORIDE 20 MEQ TAB PO (14:12)
--- NOTE | 2023-04-16 16:32 | CM.DPNOTE ---
DCP Brief Note: LEATHER POLISHER reviewed EMR. Unable to meet with patient today due to triaging needs. Per H&P, lives with sons in [place]. Per provider in rounds, likely here for a few days. No needs identified from RN or provider at this time for d/c. Plan: CM team will complete comprehensive d/c assessment when able. Anticipate home with sons at this time. CM team will follow closely. KARINA Baxter
[2023-04-16] MEDS: predniSONE 20 MG TABLET 40 MG PO (16:52)
--- NOTE | 2023-04-16 17:01 | PM.PN.1 ---
Subjective Subjective Interval history: Patient's SOB improving some, but still very wheezy and coughing. She notes not history of asthma or COPD, but she did inhale several years of second-hand smoke as her smoked inside. Exam Vital Signs (past 8 hours): - 04/16/23 16:00 Temperature 97.0 F L Pulse Rate 81 Respiratory Rate 16 Blood Pressure 99/56 L Pulse Oximetry 95 Oxygen Flow Rate 0 Oxygen Delivery Method Nasal Cannula Oxygen Flow Rate 0 Narrative Exam Narrative: She is alert and oriented x3. No apparent distress. Pupils are equally round and reactive to light and accommodation. Extraocular muscles are intact. Sclerae are pink and nonicteric. Throat looks normal. No lymph nodes are felt head, neck, supraclavicular area. There is no thyromegaly. No carotid bruits are heard. Heart is regular rate and rhythm with a 2/6 systolic murmur. Lungs have diffuse wheezing bilaterally. Abdomen is soft, bowel sounds positive, nontender, no organomegaly. Extremities have no ankle edema Skin has no rash or jaundice. Neurologic exam: No tremor. Cranial nerves 2-12 test intact. Motor function is 4/5 throughout. Objective Labs 04/15/23 09:38 04/16/23 05:51 Labs: Laboratory Results - last 24 hr 04/16/23 05:51 PT 26.6 H D INR 2.3 H Sodium 139 Potassium 3.7 Chloride 103 Carbon Dioxide 27 BUN 38 H Creatinine 1.89 H Estimated GFR 28 L BUN/Creatinine Ratio 20.1 Glucose 103 Calcium 9.1 Magnesium 2.1 PFSH Medical History (Updated 04/15/23 @ 16:03 by Nydia Mosher DO) CAD (coronary atherosclerotic disease) Endocarditis Migraine Hyperlipemia Depression Anemia aplastic aregenerative Afib Chronic renal failure Hemolytic anemia SUPERFICIAL LACERATION OF TONGUE Surgical History (Updated 04/15/23 @ 20:01 by Star Hunt MD) History of hemorrhoidectomy Hx of LASIK History of tubal ligation H/O prosthetic aortic valve replacement Mitral valve replaced Hx of CABG Family History (Updated 04/15/23 @ 20:02 by Star Hunt MD) Mother Diabetes mellitus Father Heart disease Social History household members: family and children Smoking Status: Never smoker alcohol intake: current additional social history: Past Medical History 1. Rheumatic heart disease. 2. CAD. 3. Hypertension. 4. Depression. 5. Panic disorder. 6. Hiatal hernia. 7. Migraines. 8. Carotid stenosis. 9. Osteopenia. 10. Osteoarthritis. 11. Hyperlipidemia. 12. PAF. 13. Hemolytic anemia 14. Chronic kidney disease. Past Surgical History 1. Aortic and mitral valve replacement. 2. CABG x1. 3. Tubal ligation. 4. Hemorrhagic 2. 5. Transfemoral cath with mitral valve implantation. October 2016. 6. Transvenous pacemaker placement. October 2016. 7. Right femoral vein closure October 2016. Assessment & Plan Assessment & Plan narrative: This is a 73-year-old female with a history of valvular and ischemic heart disease who presents with an elevated BNP along with shortness of breath and chest x-ray evidence for CHF. Likely undiagnosed COPD vs asthma -patient notes many years of secondhand smoke exposure, no h/o of asthma but has diffuse wheezing on exam -start prednisone po 40mg daily x5 days -start duoneb -should have outpatient PFT's Acute hypoxic resp failure -required 2L on admission, O2 now weaned off Congestive heart failure, present on admission. Chronic. -diuresed with 40 mg Lasix IV Q 8 hours. -continue losartan and metoprolol. -echocardiogram with EF 60-65%, stenotic bioprosthetic mitral valve, bioprostetic aortic valve, mild-mod TR, RVSP 45 Hypertension -continue metoprolol and losartan Atrial fibrillation, present on admission. Chronic. -continue warfarin with pharmacy to manage dosing -continue metoprolol. Depression -continue fluoxetine -continue buspirone for anxiety Hyperlipidemia -continue atorvastatin Warfarin for DVT prevention Home on 04/17 Quality VTE Deep Vein Thrombosis/Pulmonary Embolism Present on Admission: No
[2023-04-16] MEDS: ALBUTEROL/IPRATROPIUM 3 ML AMPUL INH (17:09)
[2023-04-16] MEDS: ACETAMINOPHEN 325 MG TABLET 975 MG PO (17:31)
[2023-04-16] MEDS: WARFARIN 5 MG TABLET 2.5 MG PO (17:32)
[2023-04-16] MEDS: ALBUTEROL 2.5 MG/3 ML NEB (ADULT) INH (21:13)
[2023-04-16] MEDS: ATORVASTATIN 20 MG TABLET 40 MG PO (21:25)
[2023-04-16] MEDS: METOPROLOL ER 50 MG TABLET 100 MG PO (21:26)
[2023-04-16] MEDS: HYDROCODONE/ACET 5/325 TABLET 1 TAB PO (23:42)
[2023-04-17] VITALS (11 sets, daily range): BP systolic 104–119; BP diastolic 60–68; PULSE 69–91; RESP 18–20; TEMP 35.7–36.6; O2SAT 92–96
[2023-04-17] MEDS: MELATONIN 3 MG TABLET 9 MG PO ×2 (02:07→22:02)
[2023-04-17 06:02] LABS: INR 1.9 (0.9-1.3); Prothrombin Time 21.4 SECONDS (10.1-12.7)
[2023-04-17] MEDS: ALBUTEROL/IPRATROPIUM 3 ML AMPUL INH ×3 (06:06→17:34)
[2023-04-17 06:07] LABS: Add Manual Diff / Slide Review NO; Basophils Absolute Auto 0 /uL (0-100); Basophils Percent Auto 0.1 % (0-2); Eosinophils Absolute Auto 0 /uL (0-450); Hematocrit 39.4 % (36-46); Hemoglobin 12.9 g/dL (12.0-16.0); Lymphocytes Absolute Auto 800 /uL (1100-4500); Lymphocytes Percent Auto 14.5 % (25-40); Mean Corpuscular HGB Conc 32.6 % (30-36); Mean Corpuscular Hemoglobin 28.6 PG (26-34); Mean Corpuscular Volume 87.7 fL (80-100); Monocytes Absolute Auto 300 /uL (0-900); Monocytes Percent Auto 6.3 % (3-14); Neutrophils Absolute Auto 4400 /uL (1500-7000); Neutrophils Percent Auto 79.1 % (50-75); Platelet Count 234 X10^3/uL (150-400); Red Blood Cell Count 4.49 X10^6/uL (4.0-5.2); Red Cell Distribution Width 13.7 % (11.6-14.8); White Blood Cell Count 5.5 X10^3/uL (4.5-11.0)
[2023-04-17 06:09] LABS: BUN Creatinine Ratio 25.9 (6-22); Blood Urea Nitrogen 52 mg/dL (7-17); Calcium 9.1 mg/dL (8.4-10.2); Carbon Dioxide 25 mmol/L (22-32); Chloride 101 mmol/L (98-107); Estimated Glomerular Filt Rate 26 mL/min (>60); Glucose 136 mg/dL (80-110); HEMOLYSIS < 15 (0-50); Potassium 4.4 mmol/L (3.4-5.1); Sodium 137 mmol/L (137-145)
[2023-04-17] MEDS: METOPROLOL ER 50 MG TABLET 75 MG PO (09:23)
[2023-04-17] MEDS: FLUoxetine 20 MG CAPSULE 60 MG PO (09:25)
[2023-04-17] MEDS: LOSARTAN 25 MG TABLET 12.5 MG PO (09:25)
[2023-04-17] MEDS: BUSPIRONE 5 MG TABLET 15 MG PO ×2 (09:25→20:59)
[2023-04-17] MEDS: allopurinoL 100 MG TABLET 150 MG PO (09:26)
[2023-04-17] MEDS: ASPIRIN EC 81 MG TABLET PO (09:26)
[2023-04-17] MEDS: PANTOPRAZOLE DR 40 MG TABLET PO ×2 (09:27→20:59)
[2023-04-17] MEDS: predniSONE 20 MG TABLET 40 MG PO (09:27)
[2023-04-17] MEDS: ALBUTEROL 2.5 MG/3 ML NEB (ADULT) INH ×3 (10:16→22:58)
--- NOTE | 2023-04-17 15:47 | CM.DANOTE ---
DCP Assessment Note Patient is a 73yo F here following difficulty breathing. PCP Anjelica Beyer Payer Medicare and self pay FLIGHT DISPATCHER reviewed EMR. Per provider, may d/c today pending ability to remain on room air. Per RN, patient seems to be doing better. FLIGHT DISPATCHER entered room and introduced self and role. Patient resting in bed. Patient lives in [place] with two sons Morteza ([phone]) and Dhaval ([phone]). Patient requires assistance from Dhaval for meal prep and house work but overall is independent. Alen Puentes drives her. Alen Pro is deployed by is a caregiver when home. Patient has a walker with a seat that she uses. No O2 at home at baseline. No shower chair but interested in one. Interested in meals on wheels. FLIGHT DISPATCHER provided Senior Resources booklet/info for meals on wheels and senior resource center in [place] for obtaining a shower chair. Plan: likely home with son support when medically stable. Son to transport. CM team will follow closely for additional needs. KARINA Baxter Discharge Planning/Care Management CM Discharge Assessment Start: 04/17/23 15:45 Freq: Status: Active Protocol: Document 04/17/23 15:45 (Rec: 04/17/23 15:47 SL [id number]) Discharge Planning Assessment Assigned Job Press Feeder KARNIA Read DPOA/Assigned Designee Name Morteza Prado (son) Contact Information [phone] Advance Directives? Yes Advance Directives on File No History Provided By Patient,Medical Record Prior Living Arrangements House Household Members family,children Type of transporation used prior to Relies on Others admit Independent with ADL's No Is patient alert and oriented? Yes Needs Assistance With Meal Prep,Home Chores / Shopping DME Already Rented / Owned FWW / Walker Comment could use a shower seat Discharge Plan Home Transportation Arrangement Patient resides with her two sons, alen Puentes to transport. often uses the [employer] system If patient plan is home with home health No : Has signed face to face form been completed? Whiteboard Updated in Patient Room with Yes name and ext. # of Job Press Feeder Review Status In Process Next Review Type Continued Stay Review
[2023-04-17] MEDS: ACETAMINOPHEN 325 MG TABLET 975 MG PO (15:55)
[2023-04-17] MEDS: FUROSEMIDE 40 MG/4 ML VIAL IV (17:16)
[2023-04-17] MEDS: WARFARIN 5 MG TABLET 2.5 MG PO (17:16)
--- NOTE | 2023-04-17 20:46 | P.PN_ITS ---
Subjective Subjective Date Patient Seen: 04/17/23 Time Patient Seen: 08:00 Interval history: Her shortness of breath is improving. Exam Vital Signs (past 8 hours): - 04/17/23 17:00 04/17/23 17:34 Temperature 97.2 F L Pulse Rate 89 84 Respiratory Rate 18 18 Blood Pressure 112/60 Pulse Oximetry 94 96 Oxygen Delivery Method Room Air Oxygen Flow Rate 0 Fraction of Inspired Oxygen 21 Fraction of Inspired Oxygen 21 SaO2/FiO2 Ratio 457 Oxygen Delivery Method Room Air Oxygen Flow Rate 0 Narrative Exam Narrative: GEN: no acute distress CV: regular rate and rhythm PULM: clear bilaterally ABD: soft, nontender EXT: warm and well perfused with no edema Objective Labs 04/17/23 05:43 04/17/23 05:43 Labs: Laboratory Results - last 24 hr 04/17/23 05:43 WBC 5.5 RBC 4.49 Hgb 12.9 Hct 39.4 MCV 87.7 MCH 28.6 MCHC 32.6 RDW 13.7 Plt Count 234 Neut % (Auto) 79.1 H Lymph % (Auto) 14.5 L [place] % (Auto) 6.3 Eos % (Auto) 0.0 L Baso % (Auto) 0.1 Neut # (Auto) 4400 Lymph # (Auto) 800 L [place] # (Auto) 300 Eos # (Auto) 0 Baso # (Auto) 0 PT 21.4 H D INR 1.9 H Sodium 137 Potassium 4.4 Chloride 101 Carbon Dioxide 25 BUN 52 H Creatinine 2.01 H Estimated GFR 26 L BUN/Creatinine Ratio 25.9 H Glucose 136 H Calcium 9.1 PFSH Medical History (Updated 04/15/23 @ 16:03 by Nydia Mosher DO) CAD (coronary atherosclerotic disease) Endocarditis Migraine Hyperlipemia Depression Anemia aplastic aregenerative Afib Chronic renal failure Hemolytic anemia SUPERFICIAL LACERATION OF TONGUE Surgical History (Updated 04/15/23 @ 20:01 by Star Hunt MD) History of hemorrhoidectomy Hx of LASIK History of tubal ligation H/O prosthetic aortic valve replacement Mitral valve replaced Hx of CABG Family History (Updated 04/15/23 @ 20:02 by Star Hunt MD) Mother Diabetes mellitus Father Heart disease Social History household members: family and children Smoking Status: Never smoker alcohol intake: current additional social history: Past Medical History 1. Rheumatic heart disease. 2. CAD. 3. Hypertension. 4. Depression. 5. Panic disorder. 6. Hiatal hernia. 7. Migraines. 8. Carotid stenosis. 9. Osteopenia. 10. Osteoarthritis. 11. Hyperlipidemia. 12. PAF. 13. Hemolytic anemia 14. Chronic kidney disease. Past Surgical History 1. Aortic and mitral valve replacement. 2. CABG x1. 3. Tubal ligation. 4. Hemorrhagic 2. 5. Transfemoral cath with mitral valve implantation. October 2016. 6. Transvenous pacemaker placement. October 2016. 7. Right femoral vein closure October 2016. Assessment & Plan Assessment & Plan narrative: This is a 73-year-old female with a history of valvular and ischemic heart disease who presents with an elevated BNP along with shortness of breath and chest x-ray evidence for CHF. Likely undiagnosed COPD vs asthma -patient notes many years of secondhand smoke exposure, no h/o of asthma but has diffuse wheezing on exam -start prednisone po 40mg daily x5 days -start duoneb -should have outpatient PFT's Acute hypoxic resp failure -required 2L on admission, O2 now weaned off Congestive heart failure, present on admission. Chronic. -diuresed with 40 mg Lasix IV Q 8 hours. -continue losartan and metoprolol. -echocardiogram with EF 60-65%, stenotic bioprosthetic mitral valve, bioprostetic aortic valve, mild-mod TR, RVSP 45 Hypertension -continue metoprolol and losartan Atrial fibrillation, present on admission. Chronic. -continue warfarin with pharmacy to manage dosing -continue metoprolol. Depression -continue fluoxetine -continue buspirone for anxiety Hyperlipidemia -continue atorvastatin Warfarin for DVT prevention Home on 04/17 Quality VTE Deep Vein Thrombosis/Pulmonary Embolism Present on Admission: No
[2023-04-17] MEDS: METOPROLOL ER 50 MG TABLET 100 MG PO (20:59)
[2023-04-17] MEDS: ATORVASTATIN 20 MG TABLET 40 MG PO (20:59)
[2023-04-18 00:54] VITALS: BP 92/52; PULSE 84; RESP 16; TEMP 36.2; O2SAT 95
[2023-04-18 01:19] VITALS: BP 109/70
[2023-04-18 06:00] VITALS: BP 105/65; PULSE 62; RESP 16; TEMP 35.9; O2SAT 95
[2023-04-18 06:34] LABS: Add Manual Diff / Slide Review NO; Basophils Absolute Auto 0 /uL (0-100); Basophils Percent Auto 0.1 % (0-2); Eosinophils Absolute Auto 0 /uL (0-450); Eosinophils Percent Auto 0.1 % (2-4); Hematocrit 38.3 % (36-46); Hemoglobin 12.5 g/dL (12.0-16.0); Lymphocytes Absolute Auto 1000 /uL (1100-4500); Lymphocytes Percent Auto 12.1 % (25-40); Mean Corpuscular HGB Conc 32.7 % (30-36); Mean Corpuscular Hemoglobin 28.1 PG (26-34); Monocytes Absolute Auto 600 /uL (0-900); Monocytes Percent Auto 7.6 % (3-14); Neutrophils Absolute Auto 6400 /uL (1500-7000); Neutrophils Percent Auto 80.1 % (50-75); Platelet Count 252 X10^3/uL (150-400); Red Blood Cell Count 4.45 X10^6/uL (4.0-5.2)
[2023-04-18 06:35] LABS: Prothrombin Time 23.1 SECONDS (10.1-12.7)
[2023-04-18 06:44] LABS: BUN Creatinine Ratio 28.4 (6-22); Blood Urea Nitrogen 52 mg/dL (7-17); Calcium 9.3 mg/dL (8.4-10.2); Carbon Dioxide 25 mmol/L (22-32); Chloride 101 mmol/L (98-107); Estimated Glomerular Filt Rate 29 mL/min (>60); Glucose 111 mg/dL (80-110); HEMOLYSIS < 15 (0-50); Potassium 3.7 mmol/L (3.4-5.1); Sodium 138 mmol/L (137-145)
[2023-04-18 09:00] VITALS: BP 134/71; PULSE 67; RESP 16; TEMP 36.1; O2SAT 96
[2023-04-18] MEDS: ASPIRIN EC 81 MG TABLET PO (09:14)
[2023-04-18] MEDS: allopurinoL 100 MG TABLET 150 MG PO (09:14)
[2023-04-18] MEDS: FLUoxetine 20 MG CAPSULE 60 MG PO (09:15)
[2023-04-18] MEDS: BUSPIRONE 5 MG TABLET 15 MG PO (09:15)
[2023-04-18] MEDS: LOSARTAN 25 MG TABLET 12.5 MG PO (09:15)
[2023-04-18] MEDS: METOPROLOL ER 50 MG TABLET 100 MG PO (09:16)
[2023-04-18] MEDS: PANTOPRAZOLE DR 40 MG TABLET PO (09:17)
[2023-04-18] MEDS: predniSONE 20 MG TABLET 40 MG PO (09:17)
[2023-04-18] MEDS: FUROSEMIDE 40 MG TABLET PO (09:21)
[2023-04-18] MEDS: SODIUM CHLORIDE 0.9% FLUSH 10 ML IV (09:22)
--- NOTE | 2023-04-18 10:27 | DI.RAD.S_ITS ---
PROCEDURE: XR CHEST 1V INDICATIONS: cough TECHNIQUE: One view of the chest was acquired. COMPARISON: [facility], CR, XR CHEST 1V, 04/15/2023, 9:37. FINDINGS: Surgical changes and devices: Remote CABG plus open valve prosthesis and valvuloplasty, with percutaneous aortic valve, as well. Lungs and pleura: Lungs are clear. No pleural effusions or pneumothorax. Pulmonary venous congestion without roberth pulmonary edema. Mediastinum: Mediastinal contours appear normal. Cardiomegaly. Bones and chest wall: No suspicious bony lesions. Overlying soft tissues appear unremarkable. IMPRESSION: Cardiomegaly. Pulmonary venous congestion without roberth pulmonary edema. Dictated by: Олег Perry M.D. on 04/18/2023 at 11:22 Approved by: Олег Perry M.D. on 04/18/2023 at 11:24
[2023-04-18 10:52] VITALS: PULSE 74; RESP 18; O2SAT 94
[2023-04-18] MEDS: ALBUTEROL 2.5 MG/3 ML NEB (ADULT) INH (10:52)
[2023-04-18 10:59] VITALS: PULSE 66
[2023-04-18] MEDS: CODEINE/GUAIFENESIN LIQUID 5ML UDC 5 ML PO (14:09)
--- NOTE | 2023-04-18 15:36 | CM.DPC ---
DCP Cont: Patient is to be discharging home today. Met with patient, indicated, her son, Morteza, would be the one picking her up. She is hoping to get some discharge information, and copy of her labs. Updated nurse that she is requesting this. P: Patient should discharge home this pm. Abbi Guerin RN/Cabin Furnishings Installer
--- NOTE | 2023-04-18 17:06 | PC.NURSE ---
Discharge Note Patient A&O, VSS, RA, no complaints of pain/discomfort. Discharge packet reviewed with patient, all questions/concerns addressed. PIV discontinued. Patient able to dress self and pack all belongings. PIV discontinued. Prescriptions given to patient. Patient taken down via wheelchair to POV.
--- NOTE | 2023-04-19 19:47 | P.DS_ITS ---
History of Present Illness History of Present Illness Date Patient Seen: 04/15/23 Chief complaint: Difficulty Breathing Narrative: Per admitting physician: This is a 73-year-old female with hypertension, depression, coronary artery disease, valvular heart disease, CHF and hyperlipidemia who presents with 1 day of increased shortness of breath. 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 Her BNP is chronically elevated, usually in the 2000 range but is above 4200 on this admission. She presented with a saturation in the 80s and was diuresed 1 L of fluid in the ED. When she stood up to try to walk and possibly go home she dropped to 85% on room air with ambulation. Her chest x- ray shows CHF. She has a history of heart disease and will be receiving another echocardiogram. She has had both aortic valve and mitral valves replaced and has significant heart murmur today. She will be diuresed with IV Lasix. Discharge Providers Provider Date of admission: 04/15/23 14:01 Discharge Date: 04/18/23 Primary care physician: Mitchel Quiroz DO Discharge provider: Praveen Pimentel MD Summary Hospital Course Discharge Diagnosis: 1. Acute on chronic CHFpEF 2. Acute hypoxemic respiratory failure seocndary to above 3. Hypertension 4. Afib, chronic 5. Depression 6. Hyperlipidemia Hospital Course: Ms. Prado was admitted with respiratory distress. She was found to have tricuspid regurgitation and a normal EF. She was diuresed with lasix and was able to come off oxygen. She was noted to have some wheezing so was given steroids. She had no known history of COPD but does have secondhand smoke exposure. She should follow up with her PCP. Her breathing improved and she remained off oxygen. She did have a cough and was discharged with medications for symptom control. She should follow up with PCP within 1-2 weeks. Exam Vital Signs (past 8 hours): Fraction of Inspired Oxygen 21 SaO2/FiO2 Ratio 438 Oxygen Delivery Method Room Air Oxygen Flow Rate 0 Narrative Exam Narrative: GEN: no acute distress CV: regular rate and rhythm PULM: clear bilaterally ABD: soft, nontender EXT: warm and well perfused with no edema Objective Labs 04/18/23 06:08 04/18/23 06:08 [facility] Medical History (Updated 04/15/23 @ 16:03 by Nydia Mosher DO) CAD (coronary atherosclerotic disease) Endocarditis Migraine Hyperlipemia Depression Anemia aplastic aregenerative Afib Chronic renal failure Hemolytic anemia SUPERFICIAL LACERATION OF TONGUE Surgical History (Updated 04/15/23 @ 20:01 by Star Hunt MD) History of hemorrhoidectomy Hx of LASIK History of tubal ligation H/O prosthetic aortic valve replacement Mitral valve replaced Hx of CABG Family History (Updated 04/15/23 @ 20:02 by Star Hunt MD) Mother Diabetes mellitus Father Heart disease Social History household members: family and children Smoking Status: Never smoker alcohol intake: current additional social history: Past Medical History 1. Rheumatic heart disease. 2. CAD. 3. Hypertension. 4. Depression. 5. Panic disorder. 6. Hiatal hernia. 7. Migraines. 8. Carotid stenosis. 9. Osteopenia. 10. Osteoarthritis. 11. Hyperlipidemia. 12. PAF. 13. Hemolytic anemia 14. Chronic kidney disease. Past Surgical History 1. Aortic and mitral valve replacement. 2. CABG x1. 3. Tubal ligation. 4. Hemorrhagic 2. 5. Transfemoral cath with mitral valve implantation. October 2016. 6. Transvenous pacemaker placement. October 2016. 7. Right femoral vein closure October 2016. Discharge Plan Discharge Plan Patient Disposition: Home Provider Discharge Comment: Ms. Prado came to the hospital with cough and trouble breathing. She improved with removing fluid. She may also have reactive airway exacerbation so was sent home with a few more days of steroids. She should follow up with her PCP within one week. Discharge orders & Medications Prescriptions: New metoprolol succinate 50 mg Tablet Extended Release 24 Hr 100 mg PO BID Qty: 60 0RF codeine-guaifenesin 10-100 mg/5 mL liquid 5 ml PO Q6H PRN (Reason: cough) Qty: 120 0RF prednisone 20 mg tablet 40 mg PO DAILY 3 Days Qty: 6 0RF Continued pantoprazole [Protonix] 40 MG tablet,delayed release (DR/EC) 40 mg PO BID Qty: 0 atorvastatin 40 MG tablet 40 mg PO BEDTIME Qty: 0 buspirone 15 MG tablet 15 mg PO BID Qty: 0 acetaminophen [Acetaminophen Extra Strength] 500 mg Tablet 1,000 mg PO Q6H PRN (Reason: Pain (Scale Score 1-3)) alprazolam 0.5 mg Tablet 0.5 mg PO DAILY PRN (Reason: Anxiety) losartan 25 mg Tablet 12.5 mg PO DAILY furosemide [Lasix] 20 mg Tablet 40 mg PO BID fluticasone propionate 50 mcg/actuation Odem,Suspension 1 spray INTRANASAL BID PRN (Reason: Nasal Congestion) albuterol sulfate [Ventolin HFA] 90 mcg/actuation Hfa Aerosol Inhaler 2 puff INH RTQ4HR PRN (Reason: Shortness Of Breath) Qty: 1 0RF fluoxetine 40 mg capsule 60 mg PO DAILY allopurinol 300 mg tablet 150 mg PO DAILY warfarin 5 mg tablet 2.5 mg PO DAILY Patient Comments: Takes 5 MG on Tuesdays only ondansetron 4 mg tablet,disintegrating 4 mg PO Q6H PRN (Reason: nausea and vomiting) Qty: 10 0RF Discontinued metoprolol succinate 25 mg tablet extended release 24 hr 75 mg PO QAM metoprolol succinate 50 mg tablet extended release 24 hr 100 mg PO QPM Patient Comments: take 1 tablet by mouth twice a day DO NOT CRUSH OR CHEW hydrocodone-acetaminophen 5-325 mg tablet 1 tab PO QID PRN (Reason: pain) Qty: 10 0RF Follow up/Referrals: Mitchel Quiroz DO [Primary Care Provider] - 1 Week (Pepito barker's nurse will call you with a appointment within 1 week of discharge for hospitalized with respiratory distress, chf exacerbation) Diet/Activity/Treatments Diet: Low-sodium Visit Report/Discharge Packet Instructions: DI for Heart Failure, DI for Chronic Obstructive Pulmonary Disease Stand Alone Forms: Patient Portal/API, Stroke Signs & Symptoms Discharge Data Primary Care Provider: Mitchel Quiroz Quality VTE Deep Vein Thrombosis/Pulmonary Embolism Present on Admission: No
== END 2023-04-18 17:00 | disposition home or self-care (01) | DRG 291 ==
LOC: ED 10:04 → AC 14:57
PROVIDERS: Internal Medicine; Student in an Organized Health Care Education/Training Program; Admitting Provider Family Medicine; Emergency Provider Emergency Medicine; Family Provider Family Medicine; PCP Family Medicine; Referring Provider Emergency Medicine; Visit Provider Family Medicine
DX: I11.0 Hypertensive heart disease with heart failure (principal); I50.33 Acute on chronic diastolic (congestive) heart failure; J96.01 Acute respiratory failure with hypoxia; I48.20 Chronic atrial fibrillation, unspecified; F32.A Depression, unspecified; E78.5 Hyperlipidemia, unspecified; Z77.22 Contact with and (suspected) exposure to environmental tobacco smoke (acute) (chronic); Z95.2 Presence of prosthetic heart valve; Z79.01 Long term (current) use of anticoagulants; Z95.1 Presence of aortocoronary bypass graft
CPT/HCPCS: 36415; 71045; 80048; 80053; 81001; 82550; 83690; 83735; 83880; 84484; 85025; 85610; 85730; 87086; 87635; 93005; 93010; 93306; 94640; 94762; 96374; 99284; 99285; C9803; J1940; J7613

== ENCOUNTER 2023-05-17 10:39 | Emergency (ER) | payer MEDICARE, OTHER, SELFPAY ==
[2023-04-15 15:19] VITALS: BMI 34.2
[2023-05-17] VITALS (9 sets, daily range): BP systolic 108–125; BP diastolic 61–82; PULSE 59–92; RESP 17–25; TEMP 36.2; O2SAT 94–100; BMI 34.9
--- NOTE | 2023-05-17 10:47 | DI.RAD.S_ITS ---
PROCEDURE: XR CHEST 1V INDICATIONS: Shortness of breath TECHNIQUE: One view of the chest was acquired. COMPARISON: [facility], CR, XR CHEST 1V, 04/18/2023, 10:52. FINDINGS: Surgical changes and devices: 2 mechanical valves, remote CABG Lungs and pleura: Lungs are clear. Linear scarring bilaterally. No pleural effusions or pneumothorax. Mediastinum: Mediastinal contours appear normal. Cardiomegaly. Bones and chest wall: No suspicious bony lesions. Overlying soft tissues appear unremarkable. IMPRESSION: Cardiomegaly. No evidence of pulmonary edema or focal pulmonary infiltrate. Dictated by: Олег Perry M.D. on 05/17/2023 at 11:39 Approved by: Олег Perry M.D. on 05/17/2023 at 11:40
[2023-05-17 11:13] LABS: Add Manual Diff / Slide Review NO; Basophils Absolute Auto 0 /uL (0-100); Basophils Percent Auto 0.5 % (0-2); Eosinophils Absolute Auto 200 /uL (0-450); Eosinophils Percent Auto 2.7 % (2-4); Hematocrit 39.5 % (36-46); Hemoglobin 12.9 g/dL (12.0-16.0); Lymphocytes Absolute Auto 600 /uL (1100-4500); Lymphocytes Percent Auto 10.9 % (25-40); Mean Corpuscular HGB Conc 32.6 % (30-36); Mean Corpuscular Hemoglobin 28.5 PG (26-34); Mean Corpuscular Volume 87.2 fL (80-100); Monocytes Absolute Auto 700 /uL (0-900); Monocytes Percent Auto 12.3 % (3-14); Neutrophils Absolute Auto 4100 /uL (1500-7000); Neutrophils Percent Auto 73.6 % (50-75); Platelet Count 243 X10^3/uL (150-400); Red Blood Cell Count 4.52 X10^6/uL (4.0-5.2); Red Cell Distribution Width 14.5 % (11.6-14.8); White Blood Cell Count 5.6 X10^3/uL (4.5-11.0)
[2023-05-17 11:23] LABS: Prothrombin Time 22.8 SECONDS (9.4-12.5)
[2023-05-17 11:30] LABS: Alanine Aminotransferase 26 IU/L (<35); Albumin 4.3 g/dL (3.5-5.0); Albumin Globulin Ratio 1.2 (1.0-2.8); Alkaline Phosphatase 109 U/L (38-126); Aspartate Aminotransferase 33 IU/L (14-36); BUN Creatinine Ratio 17.6 (6-22); Bilirubin Total 0.5 mg/dL (0.2-1.3); Blood Urea Nitrogen 30 mg/dL (7-17); Calcium 9.3 mg/dL (8.4-10.2); Carbon Dioxide 24 mmol/L (22-32); Chloride 106 mmol/L (98-107); Estimated Glomerular Filt Rate 32 mL/min (>60); Globulin 3.6 g/dL (1.7-4.1); Glucose 108 mg/dL (80-110); HEMOLYSIS < 15 (0-50); Lactate (Lactic Acid) 1.3 mmol/L (0.7-2.1); Potassium 3.8 mmol/L (3.4-5.1); Sodium 140 mmol/L (137-145); Total Protein 7.9 g/dL (6.3-8.2)
[2023-05-17 11:40] LABS: NT-proBNP (BNP-Adult 18+) 3620 pg/mL (<125); Troponin I < 0.012 ng/mL (0.01-0.034)
--- NOTE | 2023-05-17 11:43 | ED.SOB ---
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 With complaint of shortness of breath that started abruptly at 10:00 a.m. this morning. Patient states she is had exertional dyspnea for some time she got up at 7:00 a.m. this morning had her INR appointment she was 2.1, was completed by 10:00 a.m. went to her primary care office to see if she could get into her appointment early. She was walking from the bathroom to the front desk supervisor and became very short of breath. States she could hardly talk it lasted about 30 minutes. Patient states no chest pain or pressure no diaphoresis but felt very short of breath. She states this has happened with exertion over time. She denies fevers or chills, she is had a cough occasionally but nonproductive. She felt lightheaded yesterday but no syncope. She did feel nauseated today but no vomiting. No issues with bowel movements, no urinary changes. No new swelling in extremities. She states she has had episodes similar to this. She states she is recovered and feels back to normal. She does note that she had her flu shot and COVID booster on the 18 of April. Patient states prior surgeries include one-vessel CABG, mitral valve and aortic valve replaced in 2008, had a TAVR for her mitral valve in 2017. Patient states several allergies including shellfish, azithromycin, diltiazem, trazodone and doxycycline. No tobacco, rare alcohol, no recreational drugs. Primary care is Dr. Beyer on [facility]. Dr. Todd at [facility] is her shirt sewer. Related Data Home Medications Medication Instructions Recorded Confirmed atorvastatin 40 mg tablet 40 mg PO BEDTIME ##0 11/26/16 04/15/23 buspirone 15 mg tablet 15 mg PO BID ##0 11/26/16 04/15/23 pantoprazole 40 mg tablet,delayed 40 mg PO BID ##0 11/26/16 04/15/23 release (Protonix) acetaminophen 500 mg tablet 1,000 mg PO Q6H PRN Pain (Scale 10/28/17 04/15/23 (Acetaminophen Extra Strength) Score 1-3) alprazolam 0.5 mg tablet 0.5 mg PO DAILY PRN Anxiety 10/28/17 04/15/23 fluticasone propionate 50 1 spray intranasal BID PRN Nasal 10/28/17 04/15/23 mcg/actuation nasal Congestion spray,suspension furosemide 20 mg tablet (Lasix) 40 mg PO BID 10/28/17 04/15/23 losartan 25 mg tablet 12.5 mg PO DAILY 10/28/17 04/15/23 fluoxetine 40 mg capsule 60 mg PO DAILY 07/24/18 04/15/23 allopurinol 300 mg tablet 150 mg PO DAILY 03/28/19 04/15/23 warfarin 5 mg tablet 2.5 mg PO DAILY 03/28/19 04/15/23 Previous Rx's Medication Instructions Recorded albuterol sulfate 90 mcg/actuation 2 puff INH RTQ4HR PRN Shortness Of 10/31/17 aerosol inhaler (Ventolin HFA) Breath #1 g ondansetron 4 mg disintegrating 4 mg PO Q6H PRN nausea and 10/26/21 tablet vomiting #10 tabs codeine 10 mg-guaifenesin 100 mg/5 5 ml PO Q6H PRN cough #120 mL 04/18/23 mL oral liquid metoprolol succinate 50 mg 100 mg (2 x 50 mg) PO BID #60 tabs 04/18/23 tablet,extended release 24 hr furosemide 40 mg tablet (Lasix) 80 mg (2 x 40 mg) PO DAILY 3 days 05/17/23 #6 tabs Allergies Allergy/AdvReac Type Severity Reaction Status Date / Time shellfish derived Allergy Mild HIVES Verified 05/17/23 10:46 [SHELLFISH DERIVED] azithromycin [AZITHROMYCIN] Allergy Unknown SWOLLEN Verified 05/17/23 10:46 LIPS diltiazem [From CARDIZEM] Allergy Unknown HEART BLOCK Verified 05/17/23 10:46 trazodone [TRAZODONE] Allergy Unknown STOP Verified 05/17/23 10:46 BREATHING doxycycline [DOXYCYCLINE] AdvReac Mild STOMACH Verified 05/17/23 10:46 UPSET Review of Systems Review of Systems ROS Unobtainable: All systems reviewed & are unremarkable except as noted in HPI and below Patient History Medical History CAD (coronary atherosclerotic disease) Endocarditis Migraine Hyperlipemia Depression Anemia aplastic aregenerative Afib Chronic renal failure Hemolytic anemia SUPERFICIAL LACERATION OF TONGUE Surgical History History of hemorrhoidectomy Hx of LASIK History of tubal ligation H/O prosthetic aortic valve replacement Mitral valve replaced Hx of CABG Family History Mother Diabetes mellitus Father Heart disease Social History household members: family and children Smoking Status: Never smoker alcohol intake: current additional social history: Past Medical History 1. Rheumatic heart disease. 2. CAD. 3. Hypertension. 4. Depression. 5. Panic disorder. 6. Hiatal hernia. 7. Migraines. 8. Carotid stenosis. 9. Osteopenia. 10. Osteoarthritis. 11. Hyperlipidemia. 12. PAF. 13. Hemolytic anemia 14. Chronic kidney disease. Past Surgical History 1. Aortic and mitral valve replacement. 2. CABG x1. 3. Tubal ligation. 4. Hemorrhagic 2. 5. Transfemoral cath with mitral valve implantation. October 2016. 6. Transvenous pacemaker placement. October 2016. 7. Right femoral vein closure October 2016. Smoking Status: Never smoker alcohol intake frequency: holidays/special occasions only Substance Use Type: marijuana and other Exam Narrative Exam Narrative: GENERAL: Alert and oriented x three, well-nourished female in no acute distress. HEENT: Head normocephalic, atraumatic, EOMI, pupils reactive, face symmetric, moist mucous membranes NECK: Supple, full range of motion CARDIOVASCULAR: Regular rate and rhythm without murmurs, rubs or gallops. No JVD. No edema bilateral lower extremities. RESPIRATORY: Breath sounds equal bilaterally, no wheezes rales or rhonchi. No tachypnea or accessory muscle use. Speaks in full sentences. ABDOMEN: Soft, nontender. Normoactive bowel sounds all 4 quadrants. No guarding or rebound, rigidity, no mass : No CVA tenderness EXTREMITIES: Normal range of motion, no clubbing or edema. Neurovascularly intact NEUROLOGICAL: Cranial nerves II through XII grossly intact. Moving all extremities SKIN: Warm, dry, no petechiae, no rashes or lesions. Initial Vital Signs Initial Vital Signs: Vital Signs Temperature 97.1 F L 05/17/23 10:43 Pulse Rate 75 05/17/23 10:43 Respiratory Rate 20 05/17/23 10:43 Blood Pressure 124/72 05/17/23 10:43 Pulse Oximetry 96 05/17/23 10:43 Oxygen Delivery Method Room Air 05/17/23 10:43 Course Orders Ordered: ED Orders 05/17/23 10:47 XR chest 1V Stat Measure peak expiratory flow ONCE RT Consult Eval and Treat NOW 05/17/23 10:56 EKG-12 Lead Stat 05/17/23 11:00 Complete Blood Count AUTO DIFF Stat Comprehensive Metabolic Panel Stat Lactate (Lactic Acid) Stat NT-proBNP (BNP-Adult 18+) Stat Prothrombin Time INR Stat Troponin I Stat 05/17/23 11:29 PTT Partial Thromboplastin Thong Stat 05/17/23 12:00 Covid-19 + FLU A/B + RSV - PCR Stat 05/17/23 12:55 Trop I [Troponin I] Stat Discontinued Medications Furosemide 60 mg/ Sodium (Chloride) 56 mls @ 112 mls/hr IV NOW ONE Stop: 05/17/23 12:15 Last Infusion: 05/17/23 13:02 Dose: Infused Documented By: Admin: 05/17/23 12:21 Dose: 112 mls/hr Documented By: MARIE Vital Signs Vital signs: Vital Signs - 8 hr 05/17/23 10:43 05/17/23 10:51 05/17/23 10:52 Temperature 97.1 F L Pulse Rate 75 76 Respiratory Rate 20 Blood Pressure 124/72 Pulse Oximetry 96 100 95 Oxygen Delivery Method Room Air 05/17/23 10:52 05/17/23 11:00 05/17/23 11:30 Temperature Pulse Rate 73 Respiratory Rate 25 H Blood Pressure 125/82 112/63 Pulse Oximetry 94 Oxygen Delivery Method Room Air 05/17/23 11:30 05/17/23 12:06 05/17/23 12:06 Temperature Pulse Rate 63 68 Respiratory Rate 17 Blood Pressure 120/72 Pulse Oximetry 95 97 Oxygen Delivery Method 05/17/23 12:30 05/17/23 12:31 05/17/23 12:31 Temperature Pulse Rate 59 L 70 Respiratory Rate Blood Pressure 108/62 Pulse Oximetry 94 94 Oxygen Delivery Method 05/17/23 13:53 05/17/23 13:53 Temperature Pulse Rate 92 H Respiratory Rate Blood Pressure 123/61 Pulse Oximetry 94 Oxygen Delivery Method Room Air MDM - SOB/Dyspnea Lab Data 05/17/23 11:00 05/17/23 11:00 Labs: Lab Results 05/17/23 05/17/23 05/17/23 Range/Units 11:00 11:29 12:00 WBC 5.6 (4.5-11.0) X10^3/uL RBC 4.52 (4.0-5.2) X10^6/uL Hgb 12.9 (12.0-16.0) g/dL Hct 39.5 (36-46) % MCV 87.2 (80-100) fL MCH 28.5 (26-34) PG MCHC 32.6 (30-36) % RDW 14.5 (11.6-14.8) % Plt Count 243 (150-400) X10^3/uL Neut % (Auto) 73.6 (50-75) % Lymph % (Auto) 10.9 L (25-40) % [place] % (Auto) 12.3 (3-14) % Eos % (Auto) 2.7 (2-4) % Baso % (Auto) 0.5 (0-2) % Neut # (Auto) 4100 (7913-1231) /uL Lymph # (Auto) 600 L (5320-6756) /uL [place] # (Auto) 700 (0-900) /uL Eos # (Auto) 200 (0-450) /uL Baso # (Auto) 0 (0-100) /uL PT 22.8 H (9.4-12.5) SECONDS INR 2.0 H (0.9-1.3) APTT 44 H (25.1-36.5) SECONDS Sodium 140 (137-145) mmol/L Potassium 3.8 (3.4-5.1) mmol/L Chloride 106 (98-107) mmol/L Carbon Dioxide 24 (22-32) mmol/L BUN 30 H (7-17) mg/dL Creatinine 1.70 H (0.52-1.04) mg/dL Estimated GFR 32 L (>60) mL/min BUN/Creatinine Ratio 17.6 (6-22) Glucose 108 (80-110) mg/dL Lactate 1.3 (0.7-2.1) mmol/L Calcium 9.3 (8.4-10.2) mg/dL Total Bilirubin 0.5 (0.2-1.3) mg/dL AST 33 (14-36) IU/L ALT 26 (<35) IU/L Alkaline Phosphatase 109 (38-126) U/L Troponin I < 0.012 (0.01-0.034) ng/mL NT-Pro-B Natriuret Pep 3620 H (<125) pg/mL Total Protein 7.9 (6.3-8.2) g/dL Albumin 4.3 (3.5-5.0) g/dL Globulin 3.6 (1.7-4.1) g/dL Albumin/Globulin Ratio 1.2 (1.0-2.8) SARS-CoV-2 (PCR) Negative (Negative) Influenza A (RT-PCR) Flu a negative (NEGATIVE) Influenza B (RT-PCR) Flu b negative (NEGATIVE) RSV (PCR) Negative (Negative) 05/17/23 Range/Units 12:55 WBC (4.5-11.0) X10^3/uL RBC (4.0-5.2) X10^6/uL Hgb (12.0-16.0) g/dL Hct (36-46) % MCV (80-100) fL MCH (26-34) PG MCHC (30-36) % RDW (11.6-14.8) % Plt Count (150-400) X10^3/uL Neut % (Auto) (50-75) % Lymph % (Auto) (25-40) % [place] % (Auto) (3-14) % Eos % (Auto) (2-4) % Baso % (Auto) (0-2) % Neut # (Auto) (2627-5695) /uL Lymph # (Auto) (7639-9920) /uL [place] # (Auto) (0-900) /uL Eos # (Auto) (0-450) /uL Baso # (Auto) (0-100) /uL PT (9.4-12.5) SECONDS INR (0.9-1.3) APTT (25.1-36.5) SECONDS Sodium (137-145) mmol/L Potassium (3.4-5.1) mmol/L Chloride (98-107) mmol/L Carbon Dioxide (22-32) mmol/L BUN (7-17) mg/dL Creatinine (0.52-1.04) mg/dL Estimated GFR (>60) mL/min BUN/Creatinine Ratio (6-22) Glucose (80-110) mg/dL Lactate (0.7-2.1) mmol/L Calcium (8.4-10.2) mg/dL Total Bilirubin (0.2-1.3) mg/dL AST (14-36) IU/L ALT (<35) IU/L Alkaline Phosphatase (38-126) U/L Troponin I < 0.012 (0.01-0.034) ng/mL NT-Pro-B Natriuret Pep (<125) pg/mL Total Protein (6.3-8.2) g/dL Albumin (3.5-5.0) g/dL Globulin (1.7-4.1) g/dL Albumin/Globulin Ratio (1.0-2.8) SARS-CoV-2 (PCR) (Negative) Influenza A (RT-PCR) (NEGATIVE) Influenza B (RT-PCR) (NEGATIVE) RSV (PCR) (Negative) Urine Dip Bedside Urine Glucose Negative Bedside Urine Bilirubin - Negative Bedside Urine Ketone - Negative Urine Specific [place] 1.015 Bedside Urine Occult Blood - Negative Bedside Urine pH 6.0 Bedside Urine Protein - Negative Bedside Urine Urobilinogen - Negative Bedside Urine Nitrite - Negative Imaging Data Chest x-ray: Radiologist's Impression: [address] [address] XRay Report Signed Patient: Joselyn Prado MR#: [id number] : 1950 Acct:[id number] Age/Sex: 73 / F Date of Service: 05/17/23 Loc: ED Accession Number: [id number] Procedure: XR chest 1V Ordering Provider: Sybil Christianson D.O. PROCEDURE: XR CHEST 1V INDICATIONS: Shortness of breath TECHNIQUE: One view of the chest was acquired. COMPARISON: [facility], CR, XR CHEST 1V, 04/18/2023, 10:52. FINDINGS: Surgical changes and devices: 2 mechanical valves, remote CABG Lungs and pleura: Lungs are clear. Linear scarring bilaterally. No pleural effusions or pneumothorax. Mediastinum: Mediastinal contours appear normal. Cardiomegaly. Bones and chest wall: No suspicious bony lesions. Overlying soft tissues appear unremarkable. IMPRESSION: Cardiomegaly. No evidence of pulmonary edema or focal pulmonary infiltrate. Dictated by: Олег Perry M.D. on 05/17/2023 at 11:39 Approved by: Олег Perry M.D. on 05/17/2023 at 11:40 ECG Data Attestation: I personally reviewed and interpreted this ECG as follows: Prior ECG tracings: available for review Interpretation: Sinus rhythm rate of 74 KS 170 QRS is 74 and QTC of 463. No acute ST elevation or depression appreciated. Patient has prior from 04/15/2023 which appears similar. MDM Narrative Medical decision making narrative: 73-year-old female with known coronary artery disease and valve replacement mitral and aortic on warfarin with history of CHF who presents with complaint of dyspnea exertion that significant worsened today has resolved. Patient states no chest pain or pressure but felt very short of breath had some mild nausea, felt lightheaded yesterday. Has not noticed happens occasionally she was exerting herself quite a bit to get to the front desk supervisor from the bathroom her primary care office. CBC shows no acute change other than low lymphocytes. INR is 2.2 electrolytes are normal, BUN 30 with a creatinine of 1.7 patient states this is her baseline, glucose 108 LFT negative with a negative troponin and BNP of 3600. In the past patient has ranged from 4327-9949. Repeat troponin show no acute change COVID/influenza/RSV swab is negative. Chest x-ray shows no acute change Patient did have an echo on 04/15/2023 with an EF of 60-65% bioprosthetic mitral valve with increased gradients higher than prior study suggesting stenosis aortic valve increased gradient sitter slightly lower than prior study ascending aorta mildly enlarged with a trivial pericardial effusion. Patient continues to feel improved, no hypoxia. She was diuresing while here in the department. She feels comfortable returning home. Asked her to follow up with her shirt sewer she has not appointment at the beginning of June but discussed contacting them to see if they would like to see her sooner. Discharge Plan Departure Patient Disposition: Home Clinical Impression: Congestive heart failure Instructions: DI for Heart Failure Activity Restrictions/Additional Instructions: Follow-up for recheck with your physician, may wish to perform some additional workup if you have not seen your shirt sewer in the last several months. You do appear to have some worsening heart failure today, your labs overall are very appropriate your renal function appears stable. Increase your Lasix to 80mg (2 tablets) for the next 3 days, then return to her usual 40 mg (1 tablet) daily. Continue your other home medications as prescribed. Prescription printed if you need additional medication Please return for fevers, increasing chest pain, shortness of breath or lightheadedness, new swelling of her extremities or other new or concerning changes. Prescriptions: New furosemide [Lasix] 40 mg tablet 80 mg PO DAILY 3 Days Qty: 6 0RF No Action pantoprazole [Protonix] 40 MG tablet,delayed release (DR/EC) 40 mg PO BID Qty: 0 atorvastatin 40 MG tablet 40 mg PO BEDTIME Qty: 0 buspirone 15 MG tablet 15 mg PO BID Qty: 0 acetaminophen [Acetaminophen Extra Strength] 500 mg Tablet 1,000 mg PO Q6H PRN (Reason: Pain (Scale Score 1-3)) alprazolam 0.5 mg Tablet 0.5 mg PO DAILY PRN (Reason: Anxiety) losartan 25 mg Tablet 12.5 mg PO DAILY furosemide [Lasix] 20 mg Tablet 40 mg PO BID fluticasone propionate 50 mcg/actuation [place],Suspension 1 spray INTRANASAL BID PRN (Reason: Nasal Congestion) albuterol sulfate [Ventolin HFA] 90 mcg/actuation Hfa Aerosol Inhaler 2 puff INH RTQ4HR PRN (Reason: Shortness Of Breath) Qty: 1 0RF fluoxetine 40 mg capsule 60 mg PO DAILY metoprolol succinate 50 mg Tablet Extended Release 24 Hr 100 mg PO BID Qty: 60 0RF codeine-guaifenesin 10-100 mg/5 mL liquid 5 ml PO Q6H PRN (Reason: cough) Qty: 120 0RF allopurinol 300 mg tablet 150 mg PO DAILY warfarin 5 mg tablet 2.5 mg PO DAILY Patient Comments: Takes 5 MG on Tuesdays only ondansetron 4 mg tablet,disintegrating 4 mg PO Q6H PRN (Reason: nausea and vomiting) Qty: 10 0RF Referrals: Anjelica Beyer PA-C [Primary Care Provider] - Stand Alone Forms: Patient Portal/API
[2023-05-17 11:53] LABS: PTT Partial Thromboplastin Tim 44 SECONDS (25.1-36.5)
[2023-05-17] MEDS: FUROSEMIDE 60 MG in SODIUM CHLORIDE 0.9% 50 ML 112 MG IV (12:21)
[2023-05-17 12:45] LABS: COVID-19 CEPHEID 4-PLEX PCR Negative (Negative); Influenza A - CEPHEID Flu A NEGATIVE (NEGATIVE); Influenza B - CEPHEID Flu B NEGATIVE (NEGATIVE); Respiratory Syncytial Virus Negative (Negative)
[2023-05-17 13:23] LABS: Troponin I < 0.012 ng/mL (0.01-0.034)
== END 2023-05-17 13:58 | disposition home or self-care (01) ==
PROVIDERS: Emergency Provider Emergency Medicine; Family Provider Family Medicine; PCP Physician Assistant
DX: I50.9 Heart failure, unspecified (principal); Z79.01 Long term (current) use of anticoagulants; Z95.2 Presence of prosthetic heart valve
CPT/HCPCS: 0241U; 36415; 71045; 80053; 81003; 83605; 83880; 84484; 85025; 85610; 85730; 93005; 93010; 96365; 99284; J1940

== ENCOUNTER 2024-07-25 11:57 | Emergency (ER) | payer MEDICARE, SELFPAY ==
[2023-04-15 15:19] VITALS: BMI 34.2
[2024-07-25 12:02] VITALS: BP 108/59; PULSE 78; RESP 18; TEMP 36.2; O2SAT 95; BMI 32.2
--- NOTE | 2024-07-25 12:51 | ED_ITS ---
HPI - URI/Sore Throat <Yakelin Nicholas PA-C - Last Filed: 07/25/24 21:17> General Chief Complaint: Upper Respiratory Symptoms Stated Complaint: coughing, fever, congestion, body aches Time Seen by Provider: 07/25/24 12:19 Source: patient Mode of arrival: Wheelchair History of Present Illness HPI Narrative: Ms. Prado is a very pleasant 74-year-old female with a past medical history of CHF, prosthetic mitral and aortic valve, CKD, GI bleed who presents to the emergency department for cough, congestion, sore throat and body aches x 8 days. Patient is with her son who contributes to the history. Patient has been around her grandchildren who were recently sick with upper respiratory illnesses. Last Monday she developed upper respiratory symptoms and over the last 3 days has been having sore throat and hoarse voice. She has dyspnea on exertion at baseline but cough is making it worse. She is also having some head congestion. Reports she is taken Mucinex DM without relief of symptoms. No measured fever at home but occasionally she does report feeling low-grade temperature. Denies chest pain, abdominal pain, vomiting, diarrhea. She has taken no [id number] medications prior to arrival. She does report allergies to azithromycin and stomach upset with doxycycline. Related Data Home Medications Medication Instructions Recorded Confirmed atorvastatin 40 mg tablet 40 mg PO BEDTIME ##0 11/26/16 04/15/23 buspirone 15 mg tablet 15 mg PO BID ##0 11/26/16 04/15/23 pantoprazole 40 mg tablet,delayed 40 mg PO BID ##0 11/26/16 04/15/23 release (Protonix) acetaminophen 500 mg tablet 1,000 mg PO Q6H PRN Pain (Scale 10/28/17 04/15/23 (Acetaminophen Extra Strength) Score 1-3) alprazolam 0.5 mg tablet 0.5 mg PO DAILY PRN Anxiety 10/28/17 04/15/23 fluticasone propionate 50 1 spray intranasal BID PRN Nasal 10/28/17 04/15/23 mcg/actuation nasal Congestion spray,suspension furosemide 20 mg tablet (Lasix) 40 mg PO BID 10/28/17 04/15/23 losartan 25 mg tablet 12.5 mg PO DAILY 10/28/17 04/15/23 fluoxetine 40 mg capsule 60 mg PO DAILY 07/24/18 04/15/23 allopurinol 300 mg tablet 150 mg PO DAILY 03/28/19 04/15/23 warfarin 5 mg tablet 2.5 mg PO DAILY 03/28/19 04/15/23 Previous Rx's Medication Instructions Recorded albuterol sulfate 90 mcg/actuation 2 puff INH RTQ4HR PRN Shortness Of 10/31/17 aerosol inhaler (Ventolin HFA) Breath #1 g ondansetron 4 mg disintegrating 4 mg PO Q6H PRN nausea and 10/26/21 tablet vomiting #10 tabs codeine 10 mg-guaifenesin 100 mg/5 5 ml PO Q6H PRN cough #120 mL 04/18/23 mL oral liquid metoprolol succinate 50 mg 100 mg (2 x 50 mg) PO BID #60 tabs 04/18/23 tablet,extended release 24 hr amoxicillin 875 mg-potassium 1 tab PO Q12H 7 days #14 tabs 07/25/24 clavulanate 125 mg tablet Allergies Allergy/AdvReac Type Severity Reaction Status Date / Time shellfish derived Allergy Mild HIVES Verified 07/25/24 12:06 [SHELLFISH DERIVED] azithromycin [AZITHROMYCIN] Allergy Unknown SWOLLEN Verified 07/25/24 12:06 LIPS diltiazem [From CARDIZEM] Allergy Unknown HEART BLOCK Verified 07/25/24 12:06 trazodone [TRAZODONE] Allergy Unknown STOP Verified 07/25/24 12:06 BREATHING doxycycline [DOXYCYCLINE] AdvReac Mild STOMACH Verified 07/25/24 12:06 UPSET Review of Systems <Yakelin Nicholas PA-C - Last Filed: 07/25/24 21:17> Review of Systems ROS Unobtainable: All systems reviewed & are unremarkable except as noted in HPI and below Patient History <Yakelin Nicholas PA-C - Last Filed: 07/25/24 21:17> Medical History CAD (coronary atherosclerotic disease) Endocarditis Migraine Hyperlipemia Depression Anemia aplastic aregenerative Afib Chronic renal failure Hemolytic anemia SUPERFICIAL LACERATION OF TONGUE Surgical History History of hemorrhoidectomy Hx of LASIK History of tubal ligation H/O prosthetic aortic valve replacement Mitral valve replaced Hx of CABG Family History Mother Diabetes mellitus Father Heart disease Social History household members: family and children Smoking Status: Never smoker alcohol intake: current additional social history: Past Medical History 1. Rheumatic heart disease. 2. CAD. 3. Hypertension. 4. Depression. 5. Panic disorder. 6. Hiatal hernia. 7. Migraines. 8. Carotid stenosis. 9. Osteopenia. 10. Osteoarthritis. 11. Hyperlipidemia. 12. PAF. 13. Hemolytic anemia 14. Chronic kidney disease. Past Surgical History 1. Aortic and mitral valve replacement. 2. CABG x1. 3. Tubal ligation. 4. Hemorrhagic 2. 5. Transfemoral cath with mitral valve implantation. October 2016. 6. Transvenous pacemaker placement. October 2016. 7. Right femoral vein closure October 2016. Smoking Status: Never smoker alcohol intake frequency: holidays/special occasions only Exam <Yakelin Nicholas PA-C - Last Filed: 07/25/24 21:17> Narrative Exam Narrative: GENERAL: 74 year old patient appears stated age. Well-developed patient, in no acute distress. HEAD: Atraumatic. Normocephalic. EYES: No scleral icterus. No injection or drainage. ENT: Normal TMs BL. Nose without bleeding, purulent drainage. Throat with mild e rythema, NO tonsillar hypertrophy or exudate. Airway patent. NECK: Trachea midline. Cervical ROM intact. CARDIOVASCULAR: Regular rate and rhythm. Systolic mumur. RESPIRATORY: ?Nonlabored respirations. ?Speaking in clear, full sentences. ?Clear to auscultation. Breath sounds equal bilaterally. No wheezes, rales, or rhonchi. ? EXTREMITIES: No edema or joint tenderness. NEURO: AOx3. ?Clear speech. ?Moves all 4 extremities appropriately. SKIN: No rash or erythema of visible areas Initial Vital Signs Initial Vital Signs: Vital Signs Temperature 97.1 F L 07/25/24 12:02 Pulse Rate 78 07/25/24 12:02 Respiratory Rate 18 07/25/24 12:02 Blood Pressure 108/59 L 07/25/24 12:02 Pulse Oximetry 95 07/25/24 12:02 Oxygen Delivery Method Room Air 07/25/24 12:02 <Nydia Mosher DO - Last Filed: 07/30/24 00:21> Initial Vital Signs Initial Vital Signs: Vital Signs Temperature 97.1 F L 07/25/24 12:02 Pulse Rate 78 07/25/24 12:02 Respiratory Rate 18 07/25/24 12:02 Blood Pressure 108/59 L 07/25/24 12:02 Pulse Oximetry 95 07/25/24 12:02 Oxygen Delivery Method Room Air 07/25/24 12:02 Course <Yakelin Nicholas PA-C - Last Filed: 07/25/24 21:17> Orders Ordered: Discontinued Medications Acetaminophen (Acetaminophen 325 Mg Tablet) 975 mg PO NOW ONE Stop: 07/25/24 13:02 Last Admin: 07/25/24 13:17 Dose: 975 mg Documented By: XAVI Vital Signs Vital signs: Vital Signs - 8 hr 07/25/24 15:10 Pulse Rate 75 Blood Pressure 124/63 Pulse Oximetry 97 Oxygen Delivery Method Room Air <DO Farnaz Wong Last Filed: 07/30/24 00:21> Orders Ordered: Discontinued Medications Acetaminophen (Acetaminophen 325 Mg Tablet) 975 mg PO NOW ONE Stop: 07/25/24 13:02 Last Admin: 07/25/24 13:17 Dose: 975 mg Documented By: XAVI Vital Signs Vital signs: Vital Signs - 8 hr 07/25/24 15:10 Pulse Rate 75 Blood Pressure 124/63 Pulse Oximetry 97 Oxygen Delivery Method Room Air MDM - URI/Sore Throat <MAYELIN Dsouza Last Filed: 07/25/24 21:17> Medical Records Attestation: I reviewed the patient's medical records. Lab Data Labs: Lab Results 07/25/24 Range/Units 12:07 SARS-CoV-2 (PCR) Negative (Negative) Influenza A (RT-PCR) Flu a negative (NEGATIVE) Influenza B (RT-PCR) Flu b negative (NEGATIVE) RSV (PCR) Negative (Negative) Imaging Data Chest x-ray: Radiologist's Impression: PROCEDURE: XR CHEST 2V INDICATIONS: cough and flu sx x 8 days TECHNIQUE: 2 views of the chest were acquired. COMPARISON: [facility], CR, XR CHEST 2V, 10/19/2021, 10:14. [facility], CR, XR CHEST 1V, 05/17/2023, 11:07. FINDINGS: Surgical changes and devices: Remote midline sternotomy with 2 artificial valves. Lungs and pleura: Subtle right perihilar infiltrate.. No pleural effusions or pneumothorax. Mediastinum: Mediastinal contours are normal. Heart size is mildly enlarged. Bones and chest wall: No suspicious bony abnormalities. Soft tissues appear unremarkable. IMPRESSION: Subtle focal pneumonia, right perihilar region. Consider viral versus bacterial etiologies. [facility] Narrative Medical decision making narrative: 74-old female with a past medical history of CHF, prosthetic mitral and aortic valve, CKD, GI bleed who presents to the emergency department for cough, congestion, sore throat and body aches x 8 days. Differential diagnosis includes but is not limited to viral syndrome, bronchitis, pneumonia, pleural effusions, laryngitis, etc. On exam patient is in no acute distress, nontoxic appearing, vital signs appropriate. She has no lower extremity edema. She has been having 8 days of upper respiratory symptoms, body aches, physical exam reveals mild posterior oropharyngeal erythema with no swelling or exudates. She does have a systolic murmur, no gross abnormal lung sounds auscultated, no wheezing. We will obtain two-view chest x-ray, viral swab, treat body aches with Tylenol. Viral swab negative. Chest x-ray reveals subtle focal pneumonia, right perihilar region. Consider viral versus bacterial etiologies. Given patient's significant past medical history and that her symptoms have been going on for 8 days, we will cover empirically for community-acquired pneumonia with Augmentin and doxycycline. Patient does report having prior stomach upset with doxycycline however we did discuss the importance of coverage for atypical pathogens, after shared decision-making I agreed that patient can start with Augmentin but if she has no improvement in her symptoms in next 24-48 hours she should start taking the doxycycline as well. Patient verbalized frustration with me that she was unhappy with the duration of her emergency department stay and wait time. Had open conversation with the patient and her son, apologized extensively, patient her son verbalized understanding and are agreeable to the plan of outpatient antibiotics for community-acquired pneumonia. We discussed very strict ED return precautions and follow up with PCP. Her vital signs continued to be all within normal limits, she is stable for discharge home. <Nydia Mosher, DO - Last Filed: 07/30/24 00:21> Lab Data Labs: Lab Results 07/25/24 Range/Units 12:07 SARS-CoV-2 (PCR) Negative (Negative) Influenza A (RT-PCR) Flu a negative (NEGATIVE) Influenza B (RT-PCR) Flu b negative (NEGATIVE) RSV (PCR) Negative (Negative) Discharge Plan Departure Patient Disposition: Home Clinical Impression: Pneumonia Qualifiers: Pneumonia type: due to unspecified organism Laterality: right Lung location: unspecified part of lung Qualified Code(s): J18.9 - Pneumonia, unspecified organism Instructions: DI for Pneumonia -- Adult Activity Restrictions/Additional Instructions: Dear Bethel Johan, Thank you for coming into the emergency department today. Your viral swab was negative for COVID, flu a, flu B, RSV. Your chest x-ray revealed a right-sided pneumonia. Please complete the full course of prescribed antibiotics (Augmentin and Doxycycline). Please rest, hydrate, use acetaminophen/Tylenol if needed for body aches. Please return to the emergency department immediately if you develop any new or worsening symptoms. Your symptoms should start to improve in the next 48-72 h ours on antibiotics however the cough may linger for multiple weeks. Please return to the emergency department if your symptoms do not improve. Please follow up with your primary care doctor within the next 2-3 days for ER follow-up. (If you do not have a PCP you can call [phone]. ?to schedule an appointment with an [facility] Primary Care Provider) IF YOU DEVELOP ANY NEW OR WORSENING SYMPTOMS, RETURN TO THE ER! Please read the attached instructions, they highlight more specific treatments and interventions for you at home. Thank you for letting me participate in your care, Yakelin Nicholas PA-C Prescriptions: New amoxicillin-pot clavulanate 875-125 mg tablet 1 tab PO Q12H 7 Days Qty: 14 0RF No Action pantoprazole [Protonix] 40 MG tablet,delayed release (DR/EC) 40 mg PO BID Qty: 0 atorvastatin 40 MG tablet 40 mg PO BEDTIME Qty: 0 buspirone 15 MG tablet 15 mg PO BID Qty: 0 acetaminophen [Acetaminophen Extra Strength] 500 mg Tablet 1,000 mg PO Q6H PRN (Reason: Pain (Scale Score 1-3)) alprazolam 0.5 mg Tablet 0.5 mg PO DAILY PRN (Reason: Anxiety) losartan 25 mg Tablet 12.5 mg PO DAILY furosemide [Lasix] 20 mg Tablet 40 mg PO BID fluticasone propionate 50 mcg/actuation Hooper,Suspension 1 spray INTRANASAL BID PRN (Reason: Nasal Congestion) albuterol sulfate [Ventolin HFA] 90 mcg/actuation Hfa Aerosol Inhaler 2 puff INH RTQ4HR PRN (Reason: Shortness Of Breath) Qty: 1 0RF fluoxetine 40 mg capsule 60 mg PO DAILY metoprolol succinate 50 mg Tablet Extended Release 24 Hr 100 mg PO BID Qty: 60 0RF codeine-guaifenesin 10-100 mg/5 mL liquid 5 ml PO Q6H PRN (Reason: cough) Qty: 120 0RF allopurinol 300 mg tablet 150 mg PO DAILY warfarin 5 mg tablet 2.5 mg PO DAILY Patient Comments: Takes 5 MG on Tuesdays only ondansetron 4 mg tablet,disintegrating 4 mg PO Q6H PRN (Reason: nausea and vomiting) Qty: 10 0RF Referrals: Anahi Oconnor MD [Primary Care Provider] - Stand Alone Forms: Patient Portal/API/Survey ED Sign-out <Nydia Mosher DO - Last Filed: 07/30/24 00:21> Cosign ED Attending Cosignature Attestation: I was available for consultation.
[2024-07-25 12:58] LABS: COVID-19 CEPHEID 4-PLEX PCR Negative (Negative); Influenza A - CEPHEID Flu A NEGATIVE (NEGATIVE); Influenza B - CEPHEID Flu B NEGATIVE (NEGATIVE); Respiratory Syncytial Virus Negative (Negative)
--- NOTE | 2024-07-25 13:01 | DI.RAD.S_ITS ---
PROCEDURE: XR CHEST 2V INDICATIONS: cough and flu sx x 8 days TECHNIQUE: 2 views of the chest were acquired. COMPARISON: [facility], CR, XR CHEST 2V, 10/19/2021, 10:14. [facility], CR, XR CHEST 1V, 05/17/2023, 11:07. FINDINGS: Surgical changes and devices: Remote midline sternotomy with 2 artificial valves. Lungs and pleura: Subtle right perihilar infiltrate.. No pleural effusions or pneumothorax. Mediastinum: Mediastinal contours are normal. Heart size is mildly enlarged. Bones and chest wall: No suspicious bony abnormalities. Soft tissues appear unremarkable. IMPRESSION: Subtle focal pneumonia, right perihilar region. Consider viral versus bacterial etiologies. Dictated by: Олег Perry M.D. on 07/25/2024 at 14:21 Approved by: Олег Perry M.D. on 07/25/2024 at 14:22
[2024-07-25] MEDS: ACETAMINOPHEN 325 MG TABLET 975 MG PO (13:17)
[2024-07-25 15:10] VITALS: BP 124/63; PULSE 75; O2SAT 97
== END 2024-07-25 15:27 | disposition home or self-care (01) ==
PROVIDERS: Emergency Medicine; Emergency Provider Physician Assistant; Family Provider Family Medicine; PCP Family Medicine
DX: J18.9 Pneumonia, unspecified organism (principal); J02.9 Acute pharyngitis, unspecified; Z86.79 Personal history of other diseases of the circulatory system; Z95.2 Presence of prosthetic heart valve; I48.91 Unspecified atrial fibrillation; Z79.01 Long term (current) use of anticoagulants
CPT/HCPCS: 0241U; 71046; 99283